=== PATIENT | male | born 1945 ===

== ENCOUNTER 2018-08-07 10:08 | Inpatient (IN) | payer MEDICARE ==
[2018-08-07] MEDS ORDERED: Sodium Chloride 0.9% 1,000 ML IV STA (11:00)
--- NOTE | 2018-08-07 11:17 | ED PDOC ---
HPI: Trauma/Fall - HPI History Per: Patient Injury Occurred (Timing): Days Ago: (3) Description Of Injury (Context): Head Trauma Location Of Injury: Left: Chest, Posterior: Head Pain Scale Rating Of: 3 Additional Complaint(s): Pt is a 72 y/o male brought to ED by EMT called by neighbors home health aid as pt was on the floor for 2 days after a fall. Pt states he fell on Friday after slipping and struck his the back of his head when he tried to get up again. He denies LOC. States he was unable to get up because he did not have enough strength to pull himself up. He remained on the floor for 2 days during this time he did not eat and ended up urinating on himself as he could not go to the bathroom. He normally walks with a cane and was not using one at the time of his fall. Reports a similar fall at the [facility] 1 week prior. At the moment, complains of left rib pain and mild headache. Denies dizziness, blurry vision, chest pain, shortness of breath, recent illness (cough/congestion, fevers, diarrhea, n/v, dysuria), neck, back, abdominal, hip or knee pain, or hx of seizures in the past. PMD: Dr. Rivas PMHX: HTN, DM (non inuslin dependent), Depression, HTN, Unable to r/o dementia PSurg: Denies Meds: reveiwed NKDA Social: Lives alone, as family in area, has home health aide, denies smoking, heavy alcohol use, or drug use <Pro Romo - Last Filed: 08/07/18 13:32> <Lacho Page - Last Filed: 08/07/18 13:51> - HPI Time Seen by Provider: 08/07/18 10:25 Chief Complaint (Nursing): Trauma Supervising Attending Note - Supervising Attending Note The Documented history was done by the: Physician Cable Installation Manager The documented physical exam was done by the: Physician Cable Installation Manager The documented procedures were done by the: Physician Cable Installation Manager - Attestation: I have personally seen and examined this patient.: Yes I have fully participated in the care of the patient.: Yes I have reviewed all pertinent clinical information, including history, physical exam and plan: Yes - Notes: Notes:: Head injury from fall <Lacho Page M - Last Filed: 08/07/18 13:51> Past Medical History Reviewed: Historical Data, Nursing Documentation, Vital Signs Vital Signs: Last Vital Signs Temp 98 F 08/07/18 10:27 Pulse 90 08/07/18 10:27 Resp 19 08/07/18 10:27 BP 143/89 08/07/18 10:27 Pulse Ox 98 08/07/18 10:27 - Medical History PMH: Cardia Arrhythmia, Depression, HTN, Hypercholesterolemia - Surgical History Surgical History: No Surg Hx - Family History Family History: States: No Known Family Hx - Living Arrangements Living Arrangements: With Family - Social History Current smoker - smoking cessation education provided: No <Pro Romo - Last Filed: 08/07/18 13:32> Vital Signs: Last Vital Signs Temp 98 F 08/07/18 10:27 Pulse 69 08/07/18 13:05 Resp 08/07/18 13:05 BP 134/80 08/07/18 13:05 Pulse Ox 98 08/07/18 13:34 <Lacho Page - Last Filed: 08/07/18 13:51> - Home Medications Home Medications: Ambulatory Orders Medication Instructions Recorded Aspirin [Ecotrin] 81 mg PO DAILY 08/07/18 Atorvastatin [Lipitor] 20 mg PO DAILY 08/07/18 Cyanocobalamin [Vitamin B12] 250 mcg PO DAILY 08/07/18 Dapagliflozin/Metformin HCl 1 tab PO BID 08/07/18 [Xigduo Xr 5 mg-1,000 mg Tablet] Ramipril [Altace] 2.5 mg PO DAILY 08/07/18 Risperidone [Risperdal] 1 mg PO BID 08/07/18 Sertraline HCl 100 mg PO DAILY 08/07/18 - Allergies Allergies/Adverse Reactions: Allergies Allergy/AdvReac Type Severity Reaction Status Date / Time No Known Allergies Allergy Verified 08/07/18 10:27 Review of Systems Constitutional: Negative for: Fever, Chills Respiratory: Negative for: Cough, Shortness of Breath Gastrointestinal: Negative for: Nausea, Vomiting, Abdominal Pain, Diarrhea Genitourinary Male: Negative for: Dysuria Musculoskeletal: Negative for: Neck Pain, Shoulder Pain, Arm Pain, Back Pain, Hand Pain <Pro Romo - Last Filed: 08/07/18 13:32> Physical Exam - Physical Exam Appears: Positive for: No Acute Distress (Calm appearing elderly gentlemen, discheveled, smells of urine) Head Exam: Negative for: ATRAUMATIC (Erythematous region over posterior scalp, no visible swelling, no palpable tenderness) Skin: Positive for: Dry Eye Exam: Positive for: Normal appearance, EOMI, PERRL ENT: Positive for: Normal ENT Inspection Neck: Positive for: Normal, Painless ROM Cardiovascular/Chest: Positive for: Regular Rate, Rhythm. Negative for: Chest Non Tender (Tenderness to palpation left inferior ribs w/ yellow bruising), JVD, Murmur Respiratory: Positive for: Normal Breath Sounds. Negative for: Accessory Muscle Use, Crackles, Rales, Rhonchi, Wheezing Gastrointestinal/Abdominal: Positive for: Normal Exam, Bowel Sounds, Soft. Negative for: Tenderness Back: Positive for: Normal Inspection. Negative for: Vertebral Tenderness Extremity: Positive for: Normal ROM, Other. Negative for: Pedal Edema Neurologic/Psych: Positive for: Alert, Oriented, Mood/Affect (full range), Other (Power 5/5 of upper and lower extremities. Full ROM of Neck, thoracic and lumbar spine, shoulder, elbow, hip and knee joints w/o any difficulty. Gait normal ). Negative for: semiconductor technician II-XII, Motor/Sensory Deficits, Aphasia, Facial Droop <Pro Romo - Last Filed: 08/07/18 13:32> - Physical Exam Neck: Positive for: Normal, Painless ROM Neurologic/Psych: Positive for: Alert, semiconductor technician II-XII, Oriented. Negative for: Motor/Sensory Deficits, Aphasia <Lacho Page - Last Filed: 08/07/18 13:51> - Laboratory Results Result Diagrams: 08/07/18 11:15 08/07/18 11:15 - ECG O2 Sat by Pulse Oximetry: 98 <Pro Romo - Last Filed: 08/07/18 13:32> - Laboratory Results Result Diagrams: 08/07/18 11:15 08/07/18 11:15 Lab Results: pO2 62 mm/Hg (30-55) H 08/07/18 12:55 VBG pH 7.40 (7.32-7.43) 08/07/18 12:55 VBG pCO2 42 mmHg (40-60) 08/07/18 12:55 VBG HCO3 25.5 mmol/L 08/07/18 12:55 VBG Total CO2 27.3 mmol/L (22-28) 08/07/18 12:55 VBG O2 Sat (Calc) 92.9 % (40-65) H 08/07/18 12:55 VBG Base Excess 1.0 mmol/L (0.0-2.0) 08/07/18 12:55 VBG Potassium 4.2 mmol/L (3.6-5.2) 08/07/18 12:55 Sodium 141.0 mmol/L (132-148) 08/07/18 12:55 Chloride 110.0 mmol/L (98-107) H 08/07/18 12:55 Glucose 150 mg/dL (75-110) H 08/07/18 12:55 Lactate 1.3 mmol/L (0.7-2.1) 08/07/18 12:55 FiO2 21.0 % 08/07/18 12:55 PT 12.9 Seconds (9.8-13.1) 08/07/18 11:15 INR 1.1 08/07/18 11:15 APTT 34.3 Seconds (25.6-37.1) 08/07/18 11:15 Troponin I < 0.0120 ng/mL (0.00-0.120) 08/07/18 11:15 Total Bilirubin 0.9 mg/dl (0.2-1.3) 08/07/18 11:15 AST 52 U/L (17-59) 08/07/18 11:15 ALT 48 U/L (21-72) 08/07/18 11:15 Alkaline Phosphatase 89 U/L (38-126) 08/07/18 11:15 Total Protein 8.1 G/DL (6.3-8.2) 08/07/18 11:15 Albumin 4.8 g/dL (3.5-5.0) 08/07/18 11:15 Globulin 3.3 gm/dL (2.2-3.9) 08/07/18 11:15 Albumin/Globulin Ratio 1.4 (1.0-2.1) 08/07/18 11:15 - ECG Pulse Ox Interpretation: Normal - Radiology X-Ray: Read By Radiologist X-Ray Interpretation: No Acute Disease - CT Scan/US ct Other Rad Studies (CT/US): Read By Radiologist Other Rad Interpretation: no acute - Progress ED Course And Treament: 1343: Stable. AAOx3. Spoke with neurosurgery. Will admit. Will need surgery, but not likely today. Will see pt. later today. Spoke with Dr. Rivas . Will admit. Spoke with ICU, will admit. - Critical Care Total Time (In Min): 30 Documented Critical Care: Time excludes all time spent performint seperately billable procedures <Lacho Page - Last Filed: 08/07/18 13:51> Medical Decision Making Medical Decision Makin72 y/o gentleman brought to ED s/p Mechanical fall w/ head trauma 3 days ago in which he could not get up from floor. Currently with headache and rib pain. Hemodynamically stable. Accucheck 248. CBC CMP CPK UA Head CT Rib Series Left PA NS 1 L bolus VBG EKG Troponin 1323hr Head CT report- subdural hemorrhage w/ 4mm midline shift. Call made to Neurosugery, Dr. Martinez Pt's son at bedside, discussed findings HOB elevated, NPO Neurocheck: Pt denies any headache, is AOx3 and still has no neurological deficits 1333hr Dr. Page discussed case with Dr. Martinez, will come to ED to evaluate, possible OR today or tomorrow. Pt to be admitted to ICU. Plan discussed with Son at bedside <Pro Romo - Last Filed: 08/07/18 13:32> Disposition <Pro Romo - Last Filed: 08/07/18 13:32> - Patient ED Disposition Is Patient to be Admitted: Yes Counseled Patient/Family Regarding: Studies Performed, Diagnosis - Disposition Disposition Time: 10:45 - Pt Status Changed To: Hospital Disposition Of: Inpatient - Admit Certification Admit to Inpatient:: After my assessment, the patient will require hospitalization for at least two midnights. This is because of the severity of symptoms shown, intensity of services needed, and/or the medical risk in this patient being treated as an outpatient. - POA Present On Arrival: Falls Or Trauma <Lacho Page - Last Filed: 08/07/18 13:51> - Clinical Impression Clinical Impression: Subdural hematoma - Disposition Condition: FAIR
[2018-08-07 11:38] LABS: BASO % 0.6 % (0.0-2.0); EOS % 0.2 % (0.0-4.0); HEMOGLOBIN 15.9 g/dL (12.0-18.0); LYMPH # 0.6 K/uL (1.0-4.3); LYMPH % 7.9 % (20.0-40.0); MEAN CELL VOLUME 94.7 fl (80.0-94.0); MEAN CORPUSCULAR HEMOGLOBIN 31.8 pg (27.0-31.0); MEAN CORPUSCULAR HGB CONC 33.6 g/dL (33.0-37.0); MEAN PLATELET VOLUME 9.1 fl (7.2-11.7); MONO # 0.4 K/uL (0.0-0.8); MONO % 5.1 % (0.0-10.0); NEUT # 6.6 K/uL (1.8-7.0); NEUT % 86.2 % (50.0-75.0); PLATELET COUNT 219 K/uL (130-400); RED CELL DISTRIBUTION WIDTH 14.4 % (11.5-14.5); WHITE BLOOD COUNT 7.6 K/uL (4.8-10.8)
[2018-08-07 11:46] VITALS: BMI 24.9
[2018-08-07 11:46] LABS: ALB/GLOB RATIO 1.4 (1.0-2.1); ALBUMIN 4.8 g/dL (3.5-5.0); ALT/SGPT 48 U/L (21-72); AST/SGOT 52 U/L (17-59); BLOOD UREA NITROGEN 38 mg/dl (9-20); CALCIUM 9.9 mg/dL (8.4-10.2); GFR NON-AFRICAN AMERICAN > 60
[2018-08-07 12:17] LABS: INR 1.1; PROTHROMBIN TIME 12.9 Seconds (9.8-13.1)
[2018-08-07 12:19] LABS: PARTIAL THROMBOPLASTIN TIME 34.3 Seconds (25.6-37.1)
[2018-08-07 12:28] LABS: ANISOCYTOSIS SLIGHT; BANDS 4 % (0-2); GIANT PLATELETS PRESENT; LARGE PLATELETS PRESENT; LYMPHOCYTE 9 % (20-50); MONOCYTE 1 % (0-10); NEUTROPHIL 86 % (42-75); PLATELET ESTIMATE NORMAL (NORMAL); POIKILOCYTOSIS SLIGHT; TOTAL CELLS COUNTED 100
--- NOTE | 2018-08-07 12:37 | CT ---
Date of service: 08/07/2018 PROCEDURE: CT HEAD WITHOUT CONTRAST. HISTORY: headache COMPARISON: None available. TECHNIQUE: Axial computed tomography images were obtained through the head/brain without intravenous contrast. Radiation dose: Total exam DLP = 950.52 mGy-cm. This CT exam was performed using one or more of the following dose reduction techniques: Automated exposure control, adjustment of the mA and/or kV according to patient size, and/or use of iterative reconstruction technique. FINDINGS: HEMORRHAGE: . the subdural extends approximately 10.5 cm along the right frontal convexity. It measures approximately 3.1 cm in greatest width. This subdural hemorrhages mildly loculated. There is no other intracranial hemorrhage identified. BRAIN: No intracranial mass. No significant atrophy. Mild periventricular white matter lucency consistent with chronic microvascular ischemic change. No evidence of acute infarct. VENTRICLES: No hydrocephalus. There is midline shift towards the left of approximately 4 mm. There is no downward herniation. The perimesencephalic cistern is preserved. CALVARIUM: Unremarkable. PARANASAL SINUSES: No evidence of sinusitis. There is a deviated nasal septum towards the right side in association with a bony spur. MASTOID AIR CELLS: Unremarkable as visualized. No inflammatory changes. OTHER FINDINGS: None. IMPRESSION: Acute on chronic right frontal convexity subdural hemorrhage, 3.1 cm width and 10.5 cm length. 4 mm midline shift towards the left as a result of mass effect from the subdural collection. Mildly loculated.. No other significant abnormality.
--- NOTE | 2018-08-07 12:46 | RAD ---
Date of service: 08/07/2018 PROCEDURE: Radiographs of the Chest and Left Ribs. HISTORY: fall COMPARISON: None available. TECHNIQUE: Frontal radiograph of the chest and multiple oblique radiographs of the left ribs were obtained. FINDINGS: LEFT RIBS: No fracture or focal lesion visualized. LUNGS: Clear. PLEURA: No pneumothorax or pleural fluid. CARDIOVASCULAR: Normal cardiac size. No pulmonary vascular congestion. No aortic atherosclerotic calcification present OTHER FINDINGS: None. IMPRESSION: Unremarkable radiographs of the chest and left ribs. No left rib fracture.
[2018-08-07 13:01] LABS: VENOUS BLOOD GAS PCO2 42 mmHg (40-60); VENOUS BLOOD GAS PO2 62 mm/Hg (30-55)
--- NOTE | 2018-08-07 14:55 | CP.PCM.PN ---
Subjective - Date & Time of Evaluation Date of Evaluation: 08/07/18 Time of Evaluation: 14:52 - Subjective Subjective: Pt fell yesterday has gait difficulty he is awake alert confused ALDAIR EOM full good st no sensory defictis no drift CT large chronic SDH Right side Would benefit from elective craniotomy and evacuation Son left so I will need to speak to him to obtain consent will leave consent fo son to sign after I speak to him If there is achnge neurologically will evacuate sooner Objective - Vital Signs/Intake and Output Vital Signs (last 24 hours): Temp Pulse Resp BP Pulse Ox 98 F 69 19 134/80 98 08/07/18 10:27 08/07/18 13:05 08/07/18 13:05 08/07/18 13:05 08/07/18 13:34 - Labs Labs: 08/07/18 11:15 08/07/18 11:15 PT 12.9 Seconds (9.8-13.1) 08/07/18 11:15 INR 1.1 08/07/18 11:15 APTT 34.3 Seconds (25.6-37.1) 08/07/18 11:15
[2018-08-07] MEDS: Sodium Chloride 0.9% 1,000 ML IV SCH (17:56)
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
--- NOTE | 2018-08-07 21:52 | CARD ---
APPROVED REPORT Date of service: 08/07/2018 EKG Measurement Heart [id number] <Conclusion> Normal sinus rhythm Possible inferior infarct, age undetermined Abnormal Electrocardiogram
[2018-08-07] MEDS: Insulin Regular 100 units/ml SC SCH (23:00)
[2018-08-08] MEDS: Sodium Chloride 0.9% 1,000 ML IV SCH ×2 (03:39→15:31)
[2018-08-08 06:36] LABS: BASO % 0.5 % (0.0-2.0); EOS # 0.2 K/uL (0.0-0.7); HEMOGLOBIN 13.5 g/dL (12.0-18.0); LYMPH # 1.6 K/uL (1.0-4.3); LYMPH % 27.1 % (20.0-40.0); MEAN CELL VOLUME 94.8 fl (80.0-94.0); MEAN CORPUSCULAR HEMOGLOBIN 31.9 pg (27.0-31.0); MEAN CORPUSCULAR HGB CONC 33.6 g/dL (33.0-37.0); MEAN PLATELET VOLUME 9.4 fl (7.2-11.7); MONO # 0.4 K/uL (0.0-0.8); MONO % 6.9 % (0.0-10.0); NEUT # 3.7 K/uL (1.8-7.0); NEUT % 61.5 % (50.0-75.0); NRBC % 0.1 % (0.0-0.0); RBC 4.23 Mil/uL (4.40-5.90); RED CELL DISTRIBUTION WIDTH 14.2 % (11.5-14.5)
[2018-08-08 06:46] LABS: ALB/GLOB RATIO 1.3 (1.0-2.1); ALBUMIN 3.6 g/dL (3.5-5.0); ALT/SGPT 40 U/L (21-72); AST/SGOT 44 U/L (17-59); BLOOD UREA NITROGEN 27 mg/dl (9-20); CALCIUM 8.7 mg/dL (8.4-10.2); GFR NON-AFRICAN AMERICAN > 60
[2018-08-08] MEDS: Insulin Regular 100 units/ml SC SCH ×4 (07:51→22:22)
--- NOTE | 2018-08-08 09:40 | CP.CCUPN ---
CCU Subjective - Physician Review Events Since Last Encounter (Free Text): Patient awake, no distress, no fever, no vomiting, events reviewed CCU Objective - Vital Signs / Intake & Output Vital Signs (Last 4 hours): Vital Signs Temp Pulse Resp BP Pulse Ox 08/08/18 08:37 126/66 08/08/18 08:00 98.3 F 66 14 126/66 97 08/08/18 06:00 68 14 125/69 97 Intake and Output (Last 8hrs): Intake & Output 08/07/18 08/08/18 08/08/18 22:59 06:59 14:59 Intake Total 350 Balance 350 Weight 158 lb 9.6 oz Intake: IV 100 Oral 250 - Physical Exam Head: Positive for: Normocephalic Pupils: Positive for: PERRL Conjunctiva: Positive for: Normal Ears: Positive for: Normal Mouth: Positive for: Dry Pharnyx: Positive for: Normal Nose (External): Positive for: Atraumatic Neck: Positive for: Normal Range of Motion Respiratory/Chest: Positive for: Clear to Auscultation Cardiovascular: Positive for: Regular Rate and Rhythm Abdomen: Positive for: Normal Bowel Sounds Upper Extremity: Positive for: Normal Inspection Lower Extremity: Positive for: Normal Inspection Psychiatric: Positive for: Alert - Medications Active Medications: Active Medications Generic Name Dose Route Start Last Admin Trade Name Freq PRN Reason Stop Dose Admin Acetaminophen 650 mg 08/07/18 17:20 Tylenol 325mg Tab PO Q6 PRN Headache Acetaminophen 650 mg 08/08/18 06:22 Tylenol 325mg Tab PO Q4 PRN Other Atorvastatin Calcium 20 mg 08/08/18 09:00 08/08/18 08:37 Lipitor PO 20 mg DAILY ROSI Administration Sodium Chloride 1,000 mls @ 125 mls/hr 08/07/18 17:30 08/08/18 03:39 Sodium Chloride 0.9% IV 08/08/18 17:22 125 mls/hr .Q8H ROSI Administration Insulin Human Regular 0 units 08/07/18 23:00 08/08/18 07:51 Humulin R SC Not Given ACCU-CHECK ROSI Protocol Ramipril 2.5 mg 08/08/18 09:00 08/08/18 08:37 Altace PO 2.5 mg DAILY ROSI Administration Tramadol HCl 50 mg 08/08/18 06:23 08/08/18 06:32 Ultram PO 50 mg Q4 PRN Administration Pain, severe (8-10) - Patient Studies Lab Studies: Lab Studies 08/08/18 08/08/18 08/07/18 Range/Units 05:30 05:30 22:38 WBC 6.0 (4.8-10.8) K/uL RBC 4.23 L (4.40-5.90) Mil/uL Hgb 13.5 D (12.0-18.0) g/dL Hct 40.1 (35.0-51.0) % MCV 94.8 H (80.0-94.0) fl MCH 31.9 H (27.0-31.0) pg MCHC 33.6 (33.0-37.0) g/dL RDW 14.2 (11.5-14.5) % Plt Count 195 (130-400) K/uL MPV 9.4 (7.2-11.7) fl Neut % (Auto) 61.5 (50.0-75.0) % Lymph % (Auto) 27.1 (20.0-40.0) % Dent % (Auto) 6.9 (0.0-10.0) % Eos % (Auto) 4.0 (0.0-4.0) % Baso % (Auto) 0.5 (0.0-2.0) % Neut # (Auto) 3.7 (1.8-7.0) K/uL Lymph # (Auto) 1.6 (1.0-4.3) K/uL Dent # (Auto) 0.4 (0.0-0.8) K/uL Eos # (Auto) 0.2 (0.0-0.7) K/uL Baso # (Auto) 0.0 (0.0-0.2) K/uL Neutrophils % (Manual) (42-75) % Band Neutrophils % (0-2) % Lymphocytes % (Manual) (20-50) % Monocytes % (Manual) (0-10) % Platelet Estimate (NORMAL) Large Platelets Giant Platelets Poikilocytosis (manual Anisocytosis (manual) [place] Cells Acanthocytes (Spur) PT (9.8-13.1) Seconds INR APTT (25.6-37.1) Seconds pO2 (30-55) mm/Hg VBG pH (7.32-7.43) VBG pCO2 (40-60) mmHg VBG HCO3 mmol/L VBG Total CO2 (22-28) mmol/L VBG O2 Sat (Calc) (40-65) % VBG Base Excess (0.0-2.0) mmol/L VBG Potassium (3.6-5.2) mmol/L Glucose (75-110) mg/dL Lactate (0.7-2.1) mmol/L FiO2 % Sodium 140 (132-148) mmol/l Potassium 3.8 (3.6-5.0) MMOL/L Chloride 103 (98-107) mmol/L Carbon Dioxide 26 (22-30) mmol/L Anion Gap 15 (10-20) BUN 27 H (9-20) mg/dl Creatinine 0.8 (0.8-1.5) mg/dl Est GFR ( Amer) > 60 Est GFR (Non-Af Amer) > 60 POC Glucose (mg/dL) 146 H (65-110) mg/dL Random Glucose 142 H (75-110) mg/dL Calcium 8.7 (8.4-10.2) mg/dL Phosphorus 3.1 (2.5-4.5) mg/dl Magnesium 2.0 (1.6-2.3) MG/DL Total Bilirubin 0.8 (0.2-1.3) mg/dl AST 44 (17-59) U/L ALT 40 (21-72) U/L Alkaline Phosphatase 72 (38-126) U/L Total Creatine Kinase 245 H (55-170) U/L Troponin I (0.00-0.120) ng/mL Total Protein 6.4 (6.3-8.2) G/DL Albumin 3.6 (3.5-5.0) g/dL Globulin 2.9 (2.2-3.9) gm/dL Albumin/Globulin Ratio 1.3 (1.0-2.1) Venous Blood Potassium (3.6-5.2) mmol/L 08/07/18 08/07/18 08/07/18 Range/Units 17:43 13:03 12:55 WBC (4.8-10.8) K/uL RBC (4.40-5.90) Mil/uL Hgb (12.0-18.0) g/dL Hct (35.0-51.0) % MCV (80.0-94.0) fl MCH (27.0-31.0) pg MCHC (33.0-37.0) g/dL RDW (11.5-14.5) % Plt Count (130-400) K/uL MPV (7.2-11.7) fl Neut % (Auto) (50.0-75.0) % Lymph % (Auto) (20.0-40.0) % Dent % (Auto) (0.0-10.0) % Eos % (Auto) (0.0-4.0) % Baso % (Auto) (0.0-2.0) % Neut # (Auto) (1.8-7.0) K/uL Lymph # (Auto) (1.0-4.3) K/uL Dent # (Auto) (0.0-0.8) K/uL Eos # (Auto) (0.0-0.7) K/uL Baso # (Auto) (0.0-0.2) K/uL Neutrophils % (Manual) (42-75) % Band Neutrophils % (0-2) % Lymphocytes % (Manual) (20-50) % Monocytes % (Manual) (0-10) % Platelet Estimate (NORMAL) Large Platelets Giant Platelets Poikilocytosis (manual Anisocytosis (manual) [place] Cells Acanthocytes (Spur) PT (9.8-13.1) Seconds INR APTT (25.6-37.1) Seconds pO2 62 H (30-55) mm/Hg VBG pH 7.40 (7.32-7.43) VBG pCO2 42 (40-60) mmHg VBG HCO3 25.5 mmol/L VBG Total CO2 27.3 (22-28) mmol/L VBG O2 Sat (Calc) 92.9 H (40-65) % VBG Base Excess 1.0 (0.0-2.0) mmol/L VBG Potassium 4.2 (3.6-5.2) mmol/L Glucose 150 H (75-110) mg/dL Lactate 1.3 (0.7-2.1) mmol/L FiO2 21.0 % Sodium 141.0 (132-148) mmol/l Potassium (3.6-5.0) MMOL/L Chloride 110.0 H (98-107) mmol/L Carbon Dioxide (22-30) mmol/L Anion Gap (10-20) BUN (9-20) mg/dl Creatinine (0.8-1.5) mg/dl Est GFR ( Amer) Est GFR (Non-Af Amer) POC Glucose (mg/dL) 145 H 128 H (65-110) mg/dL Random Glucose (75-110) mg/dL Calcium (8.4-10.2) mg/dL Phosphorus (2.5-4.5) mg/dl Magnesium (1.6-2.3) MG/DL Total Bilirubin (0.2-1.3) mg/dl AST (17-59) U/L ALT (21-72) U/L Alkaline Phosphatase (38-126) U/L Total Creatine Kinase (55-170) U/L Troponin I (0.00-0.120) ng/mL Total Protein (6.3-8.2) G/DL Albumin (3.5-5.0) g/dL Globulin (2.2-3.9) gm/dL Albumin/Globulin Ratio (1.0-2.1) Venous Blood Potassium 4.2 (3.6-5.2) mmol/L 08/07/18 08/07/18 08/07/18 Range/Units 11:15 11:15 11:15 WBC 7.6 (4.8-10.8) K/uL RBC 5.00 (4.40-5.90) Mil/uL Hgb 15.9 (12.0-18.0) g/dL Hct 47.3 (35.0-51.0) % MCV 94.7 H (80.0-94.0) fl MCH 31.8 H (27.0-31.0) pg MCHC 33.6 (33.0-37.0) g/dL RDW 14.4 (11.5-14.5) % Plt Count 219 (130-400) K/uL MPV 9.1 (7.2-11.7) fl Neut % (Auto) 86.2 H (50.0-75.0) % Lymph % (Auto) 7.9 L (20.0-40.0) % Dent % (Auto) 5.1 (0.0-10.0) % Eos % (Auto) 0.2 (0.0-4.0) % Baso % (Auto) 0.6 (0.0-2.0) % Neut # (Auto) 6.6 (1.8-7.0) K/uL Lymph # (Auto) 0.6 L (1.0-4.3) K/uL Dent # (Auto) 0.4 (0.0-0.8) K/uL Eos # (Auto) 0.0 (0.0-0.7) K/uL Baso # (Auto) 0.0 (0.0-0.2) K/uL Neutrophils % (Manual) 86 H (42-75) % Band Neutrophils % 4 H (0-2) % Lymphocytes % (Manual) 9 L (20-50) % Monocytes % (Manual) 1 (0-10) % Platelet Estimate Normal (NORMAL) Large Platelets Present Giant Platelets Present Poikilocytosis (manual Slight Anisocytosis (manual) Slight [place] Cells Acanthocytes (Spur) Hat Block Bench Hand PT 12.9 (9.8-13.1) Seconds INR 1.1 APTT 34.3 (25.6-37.1) Seconds pO2 (30-55) mm/Hg VBG pH (7.32-7.43) VBG pCO2 (40-60) mmHg VBG HCO3 mmol/L VBG Total CO2 (22-28) mmol/L VBG O2 Sat (Calc) (40-65) % VBG Base Excess (0.0-2.0) mmol/L VBG Potassium (3.6-5.2) mmol/L Glucose (75-110) mg/dL Lactate (0.7-2.1) mmol/L FiO2 % Sodium 142 (132-148) mmol/l Potassium 4.1 (3.6-5.0) MMOL/L Chloride 102 (98-107) mmol/L Carbon Dioxide 24 (22-30) mmol/L Anion Gap 20 (10-20) BUN 38 H (9-20) mg/dl Creatinine 0.8 (0.8-1.5) mg/dl Est GFR ( Amer) > 60 Est GFR (Non-Af Amer) > 60 POC Glucose (mg/dL) (65-110) mg/dL Random Glucose 202 H (75-110) mg/dL Calcium 9.9 (8.4-10.2) mg/dL Phosphorus (2.5-4.5) mg/dl Magnesium (1.6-2.3) MG/DL Total Bilirubin 0.9 (0.2-1.3) mg/dl AST 52 (17-59) U/L ALT 48 (21-72) U/L Alkaline Phosphatase 89 (38-126) U/L Total Creatine Kinase 572 H (55-170) U/L Troponin I < 0.0120 (0.00-0.120) ng/mL Total Protein 8.1 (6.3-8.2) G/DL Albumin 4.8 (3.5-5.0) g/dL Globulin 3.3 (2.2-3.9) gm/dL Albumin/Globulin Ratio 1.4 (1.0-2.1) Venous Blood Potassium (3.6-5.2) mmol/L 08/07/18 Range/Units 10:12 WBC (4.8-10.8) K/uL RBC (4.40-5.90) Mil/uL Hgb (12.0-18.0) g/dL Hct (35.0-51.0) % MCV (80.0-94.0) fl MCH (27.0-31.0) pg MCHC (33.0-37.0) g/dL RDW (11.5-14.5) % Plt Count (130-400) K/uL MPV (7.2-11.7) fl Neut % (Auto) (50.0-75.0) % Lymph % (Auto) (20.0-40.0) % Dent % (Auto) (0.0-10.0) % Eos % (Auto) (0.0-4.0) % Baso % (Auto) (0.0-2.0) % Neut # (Auto) (1.8-7.0) K/uL Lymph # (Auto) (1.0-4.3) K/uL Dent # (Auto) (0.0-0.8) K/uL Eos # (Auto) (0.0-0.7) K/uL Baso # (Auto) (0.0-0.2) K/uL Neutrophils % (Manual) (42-75) % Band Neutrophils % (0-2) % Lymphocytes % (Manual) (20-50) % Monocytes % (Manual) (0-10) % Platelet Estimate (NORMAL) Large Platelets Giant Platelets Poikilocytosis (manual Anisocytosis (manual) [place] Cells Acanthocytes (Spur) PT (9.8-13.1) Seconds INR APTT (25.6-37.1) Seconds pO2 (30-55) mm/Hg VBG pH (7.32-7.43) VBG pCO2 (40-60) mmHg VBG HCO3 mmol/L VBG Total CO2 (22-28) mmol/L VBG O2 Sat (Calc) (40-65) % VBG Base Excess (0.0-2.0) mmol/L VBG Potassium (3.6-5.2) mmol/L Glucose (75-110) mg/dL Lactate (0.7-2.1) mmol/L FiO2 % Sodium (132-148) mmol/l Potassium (3.6-5.0) MMOL/L Chloride (98-107) mmol/L Carbon Dioxide (22-30) mmol/L Anion Gap (10-20) BUN (9-20) mg/dl Creatinine (0.8-1.5) mg/dl Est GFR ( Amer) Est GFR (Non-Af Amer) POC Glucose (mg/dL) 248 H (65-110) mg/dL Random Glucose (75-110) mg/dL Calcium (8.4-10.2) mg/dL Phosphorus (2.5-4.5) mg/dl Magnesium (1.6-2.3) MG/DL Total Bilirubin (0.2-1.3) mg/dl AST (17-59) U/L ALT (21-72) U/L Alkaline Phosphatase (38-126) U/L Total Creatine Kinase (55-170) U/L Troponin I (0.00-0.120) ng/mL Total Protein (6.3-8.2) G/DL Albumin (3.5-5.0) g/dL Globulin (2.2-3.9) gm/dL Albumin/Globulin Ratio (1.0-2.1) Venous Blood Potassium (3.6-5.2) mmol/L Laboratory Results - last 24 hr 08/07/18 08/07/18 08/07/18 10:12 11:15 11:15 WBC 7.6 RBC 5.00 Hgb 15.9 Hct 47.3 MCV 94.7 H MCH 31.8 H MCHC 33.6 RDW 14.4 Plt Count 219 MPV 9.1 Neut % (Auto) 86.2 H Lymph % (Auto) 7.9 L Dent % (Auto) 5.1 Eos % (Auto) 0.2 Baso % (Auto) 0.6 Neut # (Auto) 6.6 Lymph # (Auto) 0.6 L Dent # (Auto) 0.4 Eos # (Auto) 0.0 Baso # (Auto) 0.0 Neutrophils % (Manual) 86 H Band Neutrophils % 4 H Lymphocytes % (Manual) 9 L Monocytes % (Manual) 1 Platelet Estimate Normal Large Platelets Present Giant Platelets Present Poikilocytosis (manual Slight Anisocytosis (manual) Slight [place] Cells Acanthocytes (Spur) Hat Block Bench Hand PT INR APTT pO2 VBG pH VBG pCO2 VBG HCO3 VBG Total CO2 VBG O2 Sat (Calc) VBG Base Excess VBG Potassium Glucose Lactate FiO2 Sodium 142 Potassium 4.1 Chloride 102 Carbon Dioxide 24 Anion Gap 20 BUN 38 H Creatinine 0.8 Est GFR ( Amer) > 60 Est GFR (Non-Af Amer) > 60 POC Glucose (mg/dL) 248 H Random Glucose 202 H Calcium 9.9 Phosphorus Magnesium Total Bilirubin 0.9 AST 52 ALT 48 Alkaline Phosphatase 89 Total Creatine Kinase 572 H Troponin I < 0.0120 Total Protein 8.1 Albumin 4.8 Globulin 3.3 Albumin/Globulin Ratio 1.4 Venous Blood Potassium 08/07/18 08/07/18 08/07/18 11:15 12:55 13:03 WBC RBC Hgb Hct MCV MCH MCHC RDW Plt Count MPV Neut % (Auto) Lymph % (Auto) Dent % (Auto) Eos % (Auto) Baso % (Auto) Neut # (Auto) Lymph # (Auto) Dent # (Auto) Eos # (Auto) Baso # (Auto) Neutrophils % (Manual) Band Neutrophils % Lymphocytes % (Manual) Monocytes % (Manual) Platelet Estimate Large Platelets Giant Platelets Poikilocytosis (manual Anisocytosis (manual) [place] Cells Acanthocytes (Spur) PT 12.9 INR 1.1 APTT 34.3 pO2 62 H VBG pH 7.40 VBG pCO2 42 VBG HCO3 25.5 VBG Total CO2 27.3 VBG O2 Sat (Calc) 92.9 H VBG Base Excess 1.0 VBG Potassium 4.2 Glucose 150 H Lactate 1.3 FiO2 21.0 Sodium 141.0 Potassium Chloride 110.0 H Carbon Dioxide Anion Gap BUN Creatinine Est GFR ( Amer) Est GFR (Non-Af Amer) POC Glucose (mg/dL) 128 H Random Glucose Calcium Phosphorus Magnesium Total Bilirubin AST ALT Alkaline Phosphatase Total Creatine Kinase Troponin I Total Protein Albumin Globulin Albumin/Globulin Ratio Venous Blood Potassium 4.2 08/07/18 08/07/18 08/08/18 17:43 22:38 05:30 WBC 6.0 RBC 4.23 L Hgb 13.5 D Hct 40.1 MCV 94.8 H MCH 31.9 H MCHC 33.6 RDW 14.2 Plt Count 195 MPV 9.4 Neut % (Auto) 61.5 Lymph % (Auto) 27.1 Dent % (Auto) 6.9 Eos % (Auto) 4.0 Baso % (Auto) 0.5 Neut # (Auto) 3.7 Lymph # (Auto) 1.6 Dent # (Auto) 0.4 Eos # (Auto) 0.2 Baso # (Auto) 0.0 Neutrophils % (Manual) Band Neutrophils % Lymphocytes % (Manual) Monocytes % (Manual) Platelet Estimate Large Platelets Giant Platelets Poikilocytosis (manual Anisocytosis (manual) Richy Cells Acanthocytes (Spur) PT INR APTT pO2 VBG pH VBG pCO2 VBG HCO3 VBG Total CO2 VBG O2 Sat (Calc) VBG Base Excess VBG Potassium Glucose Lactate FiO2 Sodium Potassium Chloride Carbon Dioxide Anion Gap BUN Creatinine Est GFR ( Amer) Est GFR (Non-Af Amer) POC Glucose (mg/dL) 145 H 146 H Random Glucose Calcium Phosphorus Magnesium Total Bilirubin AST ALT Alkaline Phosphatase Total Creatine Kinase Troponin I Total Protein Albumin Globulin Albumin/Globulin Ratio Venous Blood Potassium 08/08/18 05:30 WBC RBC Hgb Hct MCV MCH MCHC RDW Plt Count MPV Neut % (Auto) Lymph % (Auto) Dent % (Auto) Eos % (Auto) Baso % (Auto) Neut # (Auto) Lymph # (Auto) Dent # (Auto) Eos # (Auto) Baso # (Auto) Neutrophils % (Manual) Band Neutrophils % Lymphocytes % (Manual) Monocytes % (Manual) Platelet Estimate Large Platelets Giant Platelets Poikilocytosis (manual Anisocytosis (manual) [place] Cells Acanthocytes (Spur) PT INR APTT pO2 VBG pH VBG pCO2 VBG HCO3 VBG Total CO2 VBG O2 Sat (Calc) VBG Base Excess VBG Potassium Glucose Lactate FiO2 Sodium 140 Potassium 3.8 Chloride 103 Carbon Dioxide 26 Anion Gap 15 BUN 27 H Creatinine 0.8 Est GFR ( Amer) > 60 Est GFR (Non-Af Amer) > 60 POC Glucose (mg/dL) Random Glucose 142 H Calcium 8.7 Phosphorus 3.1 Magnesium 2.0 Total Bilirubin 0.8 AST 44 ALT 40 Alkaline Phosphatase 72 Total Creatine Kinase 245 H Troponin I Total Protein 6.4 Albumin 3.6 Globulin 2.9 Albumin/Globulin Ratio 1.3 Venous Blood Potassium Radiology Impressions: Radiology Impressions Head CT 08/07/18 10:58 IMPRESSION: Acute on chronic right frontal convexity subdural hemorrhage, 3.1 cm width and 10.5 cm length. 4 mm midline shift towards the left as a result of mass effect from the subdural collection. Mildly loculated.. No other significant abnormality. Ribs X-Ray 08/07/18 11:01 IMPRESSION: Unremarkable radiographs of the chest and left ribs. No left rib fracture. EKG/Cardiology Studies: Cardiology / EKG Studies 08/07/18 10:58 ELECTROCARDIOGRAM Stat Comment: Mode Of Transportation: Reason For Exam: needed 08/08/18 09:00 EKG [ELECTROCARDIOGRAM] DAILY Comment: Mode Of Transportation: Reason For Exam: f/u NS ST -T changes Fingerstick Blood Sugar Results: 142 Critical Care Progress Note - Nutrition Nutrition: Nutrition Category Date Time Status Diabetic [Consistent Carbohydrate] [DIET] Diets 08/07/18 Lunch Active Assessment/Plan - Assessment and Plan (Free Text) Assessment: A/P SDH s/p fall, DM, HTN, azotemia/dehydration, h/o dementia - Neuro check - Neurosurgery follow up - Continue meds - Pulmonary toilets
[2018-08-09 06:33] LABS: HEMOGLOBIN 13.9 g/dL (12.0-18.0); MEAN CORPUSCULAR HGB CONC 33.7 g/dL (33.0-37.0); RBC 4.34 Mil/uL (4.40-5.90); RED CELL DISTRIBUTION WIDTH 14.2 % (11.5-14.5); WHITE BLOOD COUNT 5.2 K/uL (4.8-10.8)
[2018-08-09] MEDS: Insulin Regular 100 units/ml SC SCH ×4 (06:45→23:00)
[2018-08-09 06:51] LABS: BLOOD UREA NITROGEN 17 mg/dl (9-20); CALCIUM 8.8 mg/dL (8.4-10.2); GFR NON-AFRICAN AMERICAN > 60
--- NOTE | 2018-08-09 07:51 | CP.CCUPN ---
CCU Subjective - Physician Review Events Since Last Encounter (Free Text): Patient awake, no distress, no fever, no vomiting, events reviewed CCU Objective - Vital Signs / Intake & Output Vital Signs (Last 4 hours): Vital Signs Temp Pulse Resp BP Pulse Ox 08/09/18 06:00 54 L 14 127/76 96 08/09/18 04:00 98.2 F 53 L 12 122/74 100 Intake and Output (Last 8hrs): Intake & Output 08/08/18 08/09/18 08/09/18 22:59 06:59 14:59 Intake Total 1670 150 Output Total 450 500 Balance 1220 -350 Weight 159 lb 2 oz Intake: IV 600 Oral 1070 150 Output: Urine 450 500 Urine, Voided 450 500 Other: # Bowel Movements 1 - Physical Exam Head: Positive for: Normocephalic Pupils: Positive for: PERRL Conjunctiva: Positive for: Normal Ears: Positive for: Normal Mouth: Positive for: Dry Pharnyx: Positive for: Normal Nose (External): Positive for: Atraumatic Neck: Positive for: Normal Range of Motion Respiratory/Chest: Positive for: Clear to Auscultation Cardiovascular: Positive for: Regular Rate and Rhythm Abdomen: Positive for: Normal Bowel Sounds Upper Extremity: Positive for: Normal Inspection Lower Extremity: Positive for: Normal Inspection Psychiatric: Positive for: Alert - Medications Active Medications: Active Medications Generic Name Dose Route Start Last Admin Trade Name Freq PRN Reason Stop Dose Admin Acetaminophen 650 mg 08/07/18 17:20 Tylenol 325mg Tab PO Q6 PRN Headache Acetaminophen 650 mg 08/08/18 06:22 Tylenol 325mg Tab PO Q4 PRN Other Atorvastatin Calcium 20 mg 08/08/18 09:00 08/08/18 08:37 Lipitor PO 20 mg DAILY ROSI Administration Insulin Human Regular 0 units 08/07/18 23:00 08/09/18 06:45 Humulin R SC 2 units ACCU-CHECK ROSI Administration Protocol Propranolol HCl 10 mg 08/09/18 09:00 Inderal PO TID ROSI Ramipril 2.5 mg 08/08/18 09:00 08/08/18 08:37 Altace PO 2.5 mg DAILY ROSI Administration Tramadol HCl 50 mg 08/08/18 06:23 08/08/18 12:41 Ultram PO 50 mg Q4 PRN Administration Pain, severe (8-10) - Patient Studies Lab Studies: Microbiology Studies 08/07/18 17:00 MRSA Culture (Admit) - Final Naris MRSA NOT DETECTED Lab Studies 08/09/18 08/09/18 08/09/18 Range/Units 06:41 05:30 05:30 WBC 5.2 (4.8-10.8) K/uL RBC 4.34 L (4.40-5.90) Mil/uL Hgb 13.9 (12.0-18.0) g/dL Hct 41.2 (35.0-51.0) % MCV 95.0 H (80.0-94.0) fl MCH 32.0 H (27.0-31.0) pg MCHC 33.7 (33.0-37.0) g/dL RDW 14.2 (11.5-14.5) % Plt Count 187 (130-400) K/uL Sodium 137 (132-148) mmol/l Potassium 3.8 (3.6-5.0) MMOL/L Chloride 101 (98-107) mmol/L Carbon Dioxide 27 (22-30) mmol/L Anion Gap 13 (10-20) BUN 17 (9-20) mg/dl Creatinine 0.7 L (0.8-1.5) mg/dl Est GFR ( Amer) > 60 Est GFR (Non-Af Amer) > 60 POC Glucose (mg/dL) 170 H (65-110) mg/dL Random Glucose 140 H (75-110) mg/dL Calcium 8.8 (8.4-10.2) mg/dL 08/08/18 08/08/18 08/08/18 Range/Units 21:03 16:36 09:52 WBC (4.8-10.8) K/uL RBC (4.40-5.90) Mil/uL Hgb (12.0-18.0) g/dL Hct (35.0-51.0) % MCV (80.0-94.0) fl MCH (27.0-31.0) pg MCHC (33.0-37.0) g/dL RDW (11.5-14.5) % Plt Count (130-400) K/uL Sodium (132-148) mmol/l Potassium (3.6-5.0) MMOL/L Chloride (98-107) mmol/L Carbon Dioxide (22-30) mmol/L Anion Gap (10-20) BUN (9-20) mg/dl Creatinine (0.8-1.5) mg/dl Est GFR ( Amer) Est GFR (Non-Af Amer) POC Glucose (mg/dL) 140 H 125 H 227 H (65-110) mg/dL Random Glucose (75-110) mg/dL Calcium (8.4-10.2) mg/dL Laboratory Results - last 24 hr 08/08/18 08/08/18 08/08/18 09:52 16:36 21:03 WBC RBC Hgb Hct MCV MCH MCHC RDW Plt Count Sodium Potassium Chloride Carbon Dioxide Anion Gap BUN Creatinine Est GFR ( Amer) Est GFR (Non-Af Amer) POC Glucose (mg/dL) 227 H 125 H 140 H Random Glucose Calcium 08/09/18 08/09/18 08/09/18 05:30 05:30 06:41 WBC 5.2 RBC 4.34 L Hgb 13.9 Hct 41.2 MCV 95.0 H MCH 32.0 H MCHC 33.7 RDW 14.2 Plt Count 187 Sodium 137 Potassium 3.8 Chloride 101 Carbon Dioxide 27 Anion Gap 13 BUN 17 Creatinine 0.7 L Est GFR ( Amer) > 60 Est GFR (Non-Af Amer) > 60 POC Glucose (mg/dL) 170 H Random Glucose 140 H Calcium 8.8 EKG/Cardiology Studies: Cardiology / EKG Studies 08/08/18 09:00 EKG [ELECTROCARDIOGRAM] DAILY Comment: Mode Of Transportation: Reason For Exam: f/u NS ST -T changes Fingerstick Blood Sugar Results: 170 Critical Care Progress Note - Nutrition Nutrition: Nutrition Category Date Time Status Consistent Carbohydrate [DIET] Diets 08/08/18 Dinner Active Assessment/Plan - Assessment and Plan (Free Text) Assessment: A/P SDH s/p fall, DM, HTN, azotemia/dehydration, h/o dementia - Neuro check - Neurosurgery follow up - Continue meds - Pulmonary toilets
[2018-08-09 13:18] LABS: PROTHROMBIN TIME 11.5 Seconds (9.8-13.1)
[2018-08-09 13:21] LABS: PARTIAL THROMBOPLASTIN TIME 35.9 Seconds (25.6-37.1)
--- NOTE | 2018-08-09 14:23 | CP.PCM.HP ---
History of Present Illness - History of Present Illness History of Present Illness: This is a 72 y/o male admitted for head injury. He apparently had a fall at home and hit his head a but was unable to get up and stayed on the floor for at least two days. He denies any loss of consciousness. CT scan of the head showed right frontal convexity subdural hemorrhage. He apparently had another episode of fall while in a [employer]undromat. He denies dizziness. He regularly uses a cane but was not on it in both instances. He Medica Hx HTN DM 2 on po meds essential tremors OA depression hyperlipidemia Present on Admission - Present on Admission Any Indicators Present on Admission: No History of DVT/PE: No History of Uncontrolled Diabetes: No Urinary Catheter: No Decubitus Ulcer Present: No Review of Systems - Neurological Additional comments: essetial tremors Past Patient History - Past Social History Smoking Status: Never Smoked - CARDIAC Hx Cardiac Disorders: Yes Hx Hypertension: Yes - ENDOCRINE/METABOLIC Hx Endocrine Disorders: Yes - MUSCULOSKELETAL/RHEUMATOLOGICAL Hx Falls: Yes - PSYCHIATRIC Hx Substance Use: No Meds Allergies/Adverse Reactions: Allergies Allergy/AdvReac Type Severity Reaction Status Date / Time No Known Allergies Allergy Verified 08/07/18 10:27 Physical Exam - Head Exam Head Exam: NORMAL INSPECTION - Eye Exam Eye Exam: Normal appearance - Respiratory Exam Respiratory Exam: Clear to Auscultation Bilateral - Cardiovascular Exam Cardiovascular Exam: REGULAR RHYTHM - GI/Abdominal Exam GI & Abdominal Exam: Normal Bowel Sounds - Neurological Exam Neurological exam: Alert, Oriented x3 Additional comments: essential tremors Results - Vital Signs Recent Vital Signs: Last Vital Signs Temp 98.6 F 08/09/18 12:00 Pulse 64 08/09/18 12:30 Resp 16 08/09/18 12:00 BP 121/71 08/09/18 12:30 Pulse Ox 97 08/09/18 12:00 - Labs Result Diagrams: 08/09/18 05:30 08/09/18 05:30 Labs: Laboratory Results - last 24 hr 08/08/18 08/08/18 08/09/18 16:36 21:03 05:30 WBC 5.2 RBC 4.34 L Hgb 13.9 Hct 41.2 MCV 95.0 H MCH 32.0 H MCHC 33.7 RDW 14.2 Plt Count 187 PT INR APTT Sodium Potassium Chloride Carbon Dioxide Anion Gap BUN Creatinine Est GFR ( Amer) Est GFR (Non-Af Amer) POC Glucose (mg/dL) 125 H 140 H Random Glucose Calcium 08/09/18 08/09/18 08/09/18 05:30 06:41 11:10 WBC RBC Hgb Hct MCV MCH MCHC RDW Plt Count PT INR APTT Sodium 137 Potassium 3.8 Chloride 101 Carbon Dioxide 27 Anion Gap 13 BUN 17 Creatinine 0.7 L Est GFR ( Amer) > 60 Est GFR (Non-Af Amer) > 60 POC Glucose (mg/dL) 170 H 221 H Random Glucose 140 H Calcium 8.8 08/09/18 12:50 WBC RBC Hgb Hct MCV MCH MCHC RDW Plt Count PT 11.5 INR 1.0 APTT 35.9 Sodium Potassium Chloride Carbon Dioxide Anion Gap BUN Creatinine Est GFR ( Amer) Est GFR (Non-Af Amer) POC Glucose (mg/dL) Random Glucose Calcium Assessment & Plan (1) Subdural hematoma Status: Acute (2) Hypertension Status: Acute (3) Diabetes mellitus type 2 in nonobese Status: Acute (4) Fall Status: Acute (5) Depression Status: Acute (6) Essential tremor Status: Acute (7) Osteoarthritis Status: Acute (8) Gait difficulty Status: Acute - Assessment and Plan (Free Text) Plan: Neurosurgical eval ICU neurocheck Cont all meds IVF
--- NOTE | 2018-08-09 14:36 | CP.PCM.PN ---
Subjective - Date & Time of Evaluation Date of Evaluation: 08/08/18 Time of Evaluation: 17:00 - Subjective Subjective: Patient is doing a lot better Has no headaches Noted increasing hand tremors Has no headaches No chest pain or SOB. Noted elevated FBS. Objective - Vital Signs/Intake and Output Vital Signs (last 24 hours): Temp Pulse Resp BP Pulse Ox 98.6 F 64 16 121/71 97 08/09/18 12:00 08/09/18 12:30 08/09/18 12:00 08/09/18 12:30 08/09/18 12:00 Intake and Output: 08/09/18 08/09/18 06:59 18:59 Intake Total 500 200 Output Total 500 600 Balance 0 -400 - Medications Medications: Current Medications Acetaminophen (Tylenol 325mg Tab) 650 mg PO Q6 PRN PRN Reason: Headache Acetaminophen (Tylenol 325mg Tab) 650 mg PO Q4 PRN PRN Reason: Other Atorvastatin Calcium (Lipitor) 20 mg PO DAILY [facility] Last Admin: 08/09/18 09:16 Dose: 20 mg Insulin Human Regular (Humulin R) 0 units SC ACCU-CHECK ROSI; Protocol Last Admin: 08/09/18 12:29 Dose: 3 units Propranolol HCl (Inderal) 10 mg PO TID [facility] Last Admin: 08/09/18 12:30 Dose: 10 mg Ramipril (Altace) 2.5 mg PO DAILY [facility] Last Admin: 08/09/18 09:14 Dose: 2.5 mg Tramadol HCl (Ultram) 50 mg PO Q4 PRN PRN Reason: Pain, severe (8-10) Last Admin: 08/09/18 09:18 Dose: 50 mg - Labs Labs: 08/09/18 05:30 08/09/18 05:30 PT 11.5 Seconds (9.8-13.1) 08/09/18 12:50 INR 1.0 08/09/18 12:50 APTT 35.9 Seconds (25.6-37.1) 08/09/18 12:50 - Head Exam Head Exam: NORMAL INSPECTION - Eye Exam Eye Exam: Normal appearance - ENT Exam ENT Exam: Mucous Membranes Moist - Respiratory Exam Respiratory Exam: Clear to Ausculation Bilateral - Cardiovascular Exam Cardiovascular Exam: REGULAR RHYTHM - GI/Abdominal Exam GI & Abdominal Exam: Normal Bowel Sounds Assessment and Plan (1) Subdural hematoma Status: Acute (2) Hypertension Status: Acute (3) Diabetes mellitus type 2 in nonobese Status: Acute (4) Fall Status: Acute (5) Depression Status: Acute (6) Essential tremor Status: Acute (7) Osteoarthritis Status: Acute (8) Gait difficulty Status: Acute - Assessment and Plan (Free Text) Plan: Cont meds Cont tx Cont neurocheck follow up with neurosurgery cardiology eval
--- NOTE | 2018-08-09 14:38 | CP.PCM.PN ---
Subjective - Date & Time of Evaluation Date of Evaluation: 08/09/18 Time of Evaluation: 14:37 - Subjective Subjective: Patient claims that he feels better today Started on Propranolol yesterday Has no headaches Tremors have improved. Objective - Vital Signs/Intake and Output Vital Signs (last 24 hours): Temp Pulse Resp BP Pulse Ox 98.6 F 64 16 121/71 97 08/09/18 12:00 08/09/18 12:30 08/09/18 12:00 08/09/18 12:30 08/09/18 12:00 Intake and Output: 08/09/18 08/09/18 06:59 18:59 Intake Total 500 200 Output Total 500 600 Balance 0 -400 - Medications Medications: Current Medications Acetaminophen (Tylenol 325mg Tab) 650 mg PO Q6 PRN PRN Reason: Headache Acetaminophen (Tylenol 325mg Tab) 650 mg PO Q4 PRN PRN Reason: Other Atorvastatin Calcium (Lipitor) 20 mg PO DAILY [facility] Last Admin: 08/09/18 09:16 Dose: 20 mg Insulin Human Regular (Humulin R) 0 units SC ACCU-CHECK [facility]; Protocol Last Admin: 08/09/18 12:29 Dose: 3 units Propranolol HCl (Inderal) 10 mg PO TID [facility] Last Admin: 08/09/18 12:30 Dose: 10 mg Ramipril (Altace) 2.5 mg PO DAILY [facility] Last Admin: 08/09/18 09:14 Dose: 2.5 mg Tramadol HCl (Ultram) 50 mg PO Q4 PRN PRN Reason: Pain, severe (8-10) Last Admin: 08/09/18 09:18 Dose: 50 mg - Labs Labs: 08/09/18 05:30 08/09/18 05:30 PT 11.5 Seconds (9.8-13.1) 08/09/18 12:50 INR 1.0 08/09/18 12:50 APTT 35.9 Seconds (25.6-37.1) 08/09/18 12:50 - Head Exam Head Exam: NORMAL INSPECTION - Eye Exam Eye Exam: Normal appearance - Respiratory Exam Respiratory Exam: Clear to Ausculation Bilateral - Cardiovascular Exam Cardiovascular Exam: REGULAR RHYTHM - GI/Abdominal Exam GI & Abdominal Exam: Normal Bowel Sounds Assessment and Plan (1) Subdural hematoma Status: Acute (2) Hypertension Status: Acute (3) Diabetes mellitus type 2 in nonobese Status: Acute (4) Fall Status: Acute (5) Depression Status: Acute (6) Essential tremor Status: Acute (7) Osteoarthritis Status: Acute (8) Gait difficulty Status: Acute - Assessment and Plan (Free Text) Plan: Cont meds Con ttx Cont PT cardiology eval
[2018-08-10 07:00] LABS: MEAN CELL VOLUME 94.2 fl (80.0-94.0); MEAN CORPUSCULAR HEMOGLOBIN 31.4 pg (27.0-31.0); MEAN CORPUSCULAR HGB CONC 33.3 g/dL (33.0-37.0); RBC 4.45 Mil/uL (4.40-5.90); RED CELL DISTRIBUTION WIDTH 14.2 % (11.5-14.5); WHITE BLOOD COUNT 4.8 K/uL (4.8-10.8)
[2018-08-10 07:02] LABS: PROTHROMBIN TIME 11.6 Seconds (9.8-13.1)
[2018-08-10 07:04] LABS: PARTIAL THROMBOPLASTIN TIME 38.9 Seconds (25.6-37.1)
[2018-08-10 07:18] LABS: BLOOD UREA NITROGEN 16 mg/dl (9-20); CALCIUM 9.1 mg/dL (8.4-10.2); GFR NON-AFRICAN AMERICAN > 60
--- NOTE | 2018-08-10 07:29 | CP.PCM.CON ---
History of Present Illness - History of Present Illness History of Present Illness: I was asked to see patient by Dr Rivas, Patient seen at 7:02 Patient is a 72 year old male with HTN, DM who presents with a fall. The patient generally walks wit a cane, but by report did not have his cane. He was found to have a subdural hematoma. He requires craniotomy. He denies chest pain or dyspnea Review of Systems - Constitutional Constitutional: absent: As Per HPI, Anorexia, Chills, Daytime Sleepiness, Excessive Sweating, Fatigue, Fever, Frequent Falls, Headache, Increased Appetite, Lethargy, Malaise, Night Sweats, Snoring, Sleep Apnea, Weight Gain, Weight Loss, Weakness, Other - EENT Eyes: absent: As Per HPI, Blind Spots, Blurred Vision, Change in Vision, Decreased Night Vision, Diplopia, Discharge, Dry Eye, Exophthalmos, Floaters, Irritation, Itchy Eyes, Loss of Peripheral Vision, Pain, Photophobia, Requires Corrective Lenses, Sees Flashes, Spots in Vision, Tunnel Vision, Other Visual Disturbances, Loss of Vision, Other Ears: absent: As Per HPI, Decreased Hearing, Ear Discharge, Ear Pain, Tinnitus, Abnormal Hearing, Disequilibrium, Dizziness, Other Nose/Mouth/Throat: absent: As Per HPI, Epistaxis, Nasal Congestion, Nasal Discharge, Nasal Obstruction, Nasal Trauma, Nose Pain, Post Nasal Drip, Sinus Pain, Sinus Pressure, Bleeding Gums, Change in Voice, Dental Pain, Dry Mouth, Dysphagia, Halitosis, Hoarsness, Lip Swelling, Mouth Lesions, Mouth Pain, Odynophagia, Sore Throat, Throat Swelling, Tongue Swelling, Facial Pain, Neck Pain, Neck Mass, Other - Cardiovascular Cardiovascular: absent: As Per HPI, Acrocyanosis, Chest Pain, Chest Pain at Rest, Chest Pain with Activity, Claudication, Diaphoresis, Dyspnea, Dyspnea on Exertion, Edema, Irregular Heart Rhythm, Pain Radiating to Arm/Neck/Jaw, Leg Edema, Leg Ulcers, Lightheadedness, Orthopnea, Palpitations, Paroxysmal Nocturnal Dyspnea, Pedal Edema, Radiating Pain, Rapid Heart Rate, Slow Heart Rate, Syncope, Other - Respiratory Respiratory: absent: As Per HPI, Cough, Dyspnea, Hemoptysis, Dyspnea on Exertion, Wheezing, Snoring, Stridor, Pain on Inspiration, Chest Congestion, Excessive Mucous Production, Change in Mucous Color, Pain with Coughing, Other - Gastrointestinal Gastrointestinal: absent: As Per HPI, Abdominal Pain, Belching, Bloating, Change in Bowel Habits, Change in Stool Character, Coffee Ground Emesis, Constipation, Cramping, Diarrhea, Dyspepsia, Dysphagia, Early Satiety, Excessive Flatus, Fecal Incontinence, Heartburn, Hematemesis, Hematochezia, Loose Stools, Melena, Nausea, Odynophagia, Temesmus, Vomiting, Other - Genitourinary Genitourinary: absent: As Per HPI, Change in Urinary Stream, Difficulty Urinati ng, Dysuria, Flank Pain, Hematuria, Pyuria, Nocturia, Urinary Incontinence, Urinary Frequency, Urinary Hesitance, Urinary Urgency, Voiding Freq/Small Amts, Freq UTI, Hx Renal/Bladder Calculi, Hx /Renal Surgery, Bladder Distension, Other - Musculoskeletal Musculoskeletal: absent: As Per HPI, Abnormal Gait, Arthralgias, Atrophy, Back Pain, Deformity, Joint Swelling, Limited Range of Motion, Loss of Height, Muscle Cramps, Muscle Weakness, Myalgias, Neck Pain, Numbness, Radiating Pain into Limb, Stiffness, Tingling, Other - Integumentary Integumentary: absent: As Per HPI, Acne, Alopecia, Bleeding Lesions, Change in H air, Change in Nails, Change in Pigmentation, Changing Lesions, Dry Skin, Erythema, Furuncle, Hirsutism, Lesions, New Lesions, Non-Healing Lesions, Photosensitivity, Pruritus, Rash, Skin Pain, Skin Ulcer, Sores, Striae, Swelling, Unusual Bruising, Wounds, Jaundice, Other - Neurological Neurological: absent: As Per HPI, Abnormal Gait, Abnormal Hearing, Abnormal Movements, Abnormal Speech, Behavioral Changes, Burning Sensations, Confusion, Convulsions, Disequilibrium, Dizziness, Numbness, Focal Weakness, Frequent Falls, Headaches, Lack of Coordination, Loss of Vision, Memory Loss, Paresthesias, Radicular Pain, Restless Legs, Sensory Deficit, Syncope, Tingling, Tremor, Vertigo, Weakness, Other Visual Disturbances, Other - Psychiatric Psychiatric: absent: As Per HPI, Abnormal Sleep Pattern, Anhedonia, Anxiety, Auditory Hallucinations, Behavioral Changes, Change in Appetite, Change in Libido, Confusion, Depression, Difficulty Concentrating, Hallucinations, Homicidal Ideation, Hopelessness, Irritability, Memory Loss, Mood Swings, Panic Attacks, Paranoia, Suicidal Ideation, Visual Hallucinations, Tactile Halluci nations, Other - Endocrine Endocrine: absent: As Per HPI, Change in Body Appearance, Change in Libido, Cold Intolorance, Deepening of Voice, Excessive Sweating, Fatigue, Flushing, Heat Intolorance, Increase in Ring/Shoe/Hat Size, Palpitations, Polydipsia, Polyp hagia, Polyuria, Other - Hematologic/Lymphatic Hematologic: absent: As Per HPI, Easy Bleeding, Easy Bruising, Lymphadenopathy, Other Past Patient History - Past Social History Smoking Status: Never Smoked - CARDIAC Hx Cardiac Disorders: Yes Hx Hypertension: Yes - ENDOCRINE/METABOLIC Hx Endocrine Disorders: Yes - MUSCULOSKELETAL/RHEUMATOLOGICAL Hx Falls: Yes - PSYCHIATRIC Hx Substance Use: No Meds Allergies/Adverse Reactions: Allergies Allergy/AdvReac Type Severity Reaction Status Date / Time No Known Allergies Allergy Verified 08/07/18 10:27 - Medications Medications: Current Medications Acetaminophen (Tylenol 325mg Tab) 650 mg PO Q6 PRN PRN Reason: Headache Acetaminophen (Tylenol 325mg Tab) 650 mg PO Q4 PRN PRN Reason: Other Atorvastatin Calcium (Lipitor) 20 mg PO DAILY [facility] Last Admin: 08/09/18 09:16 Dose: 20 mg Insulin Human Regular (Humulin R) 0 units SC ACCU-CHECK [facility]; Protocol Last Admin: 08/09/18 23:00 Dose: Not Given Propranolol HCl (Inderal) 10 mg PO TID [facility] Last Admin: 08/09/18 16:59 Dose: Not Given Ramipril (Altace) 2.5 mg PO DAILY [facility] Last Admin: 08/09/18 09:14 Dose: 2.5 mg Tramadol HCl (Ultram) 50 mg PO Q4 PRN PRN Reason: Pain, severe (8-10) Last Admin: 08/09/18 17:02 Dose: 50 mg Physical Exam - Constitutional Appears: Non-toxic - Head Exam Head Exam: NORMAL INSPECTION - Eye Exam Eye Exam: Normal appearance - ENT Exam ENT Exam: Mucous Membranes Moist - Neck Exam Neck exam: Positive for: Full Rom - Respiratory Exam Respiratory Exam: NORMAL BREATHING PATTERN - Cardiovascular Exam Cardiovascular Exam: REGULAR RHYTHM - GI/Abdominal Exam GI & Abdominal Exam: Normal Bowel Sounds - Rectal Exam Rectal Exam: Deferred - Extremities Exam Extremities exam: Negative for: pedal edema - Back Exam Back exam: NORMAL INSPECTION - Neurological Exam Neurological exam: Alert, Oriented x3 - Psychiatric Exam Psychiatric exam: Normal Affect - Skin Skin Exam: Normal Color Results - Vital Signs Recent Vital Signs: Last Vital Signs Temp 98.4 F 08/10/18 04:00 Pulse 56 L 08/10/18 06:00 Resp 25 H 08/10/18 06:00 BP 109/68 08/10/18 06:00 Pulse Ox 97 08/10/18 06:00 - Labs Result Diagrams: 08/10/18 06:00 08/10/18 06:00 Labs: Laboratory Results - last 24 hr 08/09/18 08/09/18 08/09/18 05:30 11:10 12:50 WBC RBC Hgb Hct MCV MCH MCHC RDW Plt Count PT 11.5 INR 1.0 APTT 35.9 Sodium Potassium Chloride Carbon Dioxide Anion Gap BUN Creatinine Est GFR ( Amer) Est GFR (Non-Af Amer) POC Glucose (mg/dL) 221 H Random Glucose Calcium Blood Type Blood Type Confirm A POSITIVE Antibody Screen BBK History Checked 08/09/18 08/09/18 08/09/18 16:02 18:30 21:05 WBC RBC Hgb Hct MCV MCH MCHC RDW Plt Count PT INR APTT Sodium Potassium Chloride Carbon Dioxide Anion Gap BUN Creatinine Est GFR ( Amer) Est GFR (Non-Af Amer) POC Glucose (mg/dL) 109 190 H Random Glucose Calcium Blood Type A POSITIVE Blood Type Confirm Antibody Screen Negative BBK History Checked No verified bt 08/10/18 08/10/18 08/10/18 06:00 06:00 06:00 WBC 4.8 RBC 4.45 Hgb 14.0 Hct 42.0 MCV 94.2 H MCH 31.4 H MCHC 33.3 RDW 14.2 Plt Count 200 PT 11.6 INR 1.0 APTT 38.9 H Sodium 137 Potassium 4.0 Chloride 97 L Carbon Dioxide 30 Anion Gap 14 BUN 16 Creatinine 0.7 L Est GFR ( Amer) > 60 Est GFR (Non-Af Amer) > 60 POC Glucose (mg/dL) Random Glucose 139 H Calcium 9.1 Blood Type Blood Type Confirm Antibody Screen BBK History Checked 08/10/18 06:55 WBC RBC Hgb Hct MCV MCH MCHC RDW Plt Count PT INR APTT Sodium Potassium Chloride Carbon Dioxide Anion Gap BUN Creatinine Est GFR ( Amer) Est GFR (Non-Af Amer) POC Glucose (mg/dL) 139 H Random Glucose Calcium Blood Type Blood Type Confirm Antibody Screen BBK History Checked - EKG Data EKG Interpreted by: Myself EKG shows normal: Sinus rhythm Assessment & Plan (1) Subdural hematoma Assessment and Plan: patient is scheduled for carniotomy. Although EKG suggests possible inferior infarction the patient is asymptomatic and hemodynamically stable from a cardaic standpoint. He will benefit from continued betablocker therapy. He is optimized for the planned surgery. will hold aspirin given subdural hematoma Status: Acute (2) Diabetes mellitus type 2 in nonobese Assessment and Plan: risk factor modificaiton Status: Acute (3) Hypertension Assessment and Plan: well controlled Status: Acute
[2018-08-10] MEDS: Insulin Regular 100 units/ml SC SCH ×3 (08:19→16:42)
[2018-08-10] MEDS ORDERED: Midazolam 2 MG/2 ML VIAL ONE (09:43)
[2018-08-10] MEDS ORDERED: Lidocaine 4% (Laryng-O-Jet) Kit MM ONE (09:43)
[2018-08-10] MEDS ORDERED: Etomidate 20 mg/10ml Inj IV ONE (09:44)
[2018-08-10] MEDS ORDERED: Phenylephrine 10 mg/ml Inj ONE (09:48)
[2018-08-10] MEDS ORDERED: Bacitracin Ointment 30 GM TUBE ONE (09:49)
[2018-08-10] MEDS ORDERED: Lidocaine 1% w Epi 1:100,000 Inj ONE (09:50)
[2018-08-10] MEDS ORDERED: TETRACAINE HCL IJ ONE (09:51)
[2018-08-10] MEDS ORDERED: Thrombin Topical 5,000 Int Units Spray Kit ONE (09:51)
[2018-08-10] MEDS ORDERED: Succinylcholine Chloride 20 mg/ml Syr (5 ml) IV ONE (09:51)
[2018-08-10] MEDS ORDERED: Rocuronium 10 mg/ml (5 ml) ONE (11:00)
[2018-08-10] MEDS ORDERED: Lidocaine/Epi 1% 1:100000 20 ML IJ ONE (11:07)
[2018-08-10] MEDS ORDERED: HEMOSTATIC MATRIX 10 ML DIS.NEEDLE TOP ONE (11:07)
[2018-08-10] MEDS ORDERED: Bacitracin OINT 15GM TOP ONE (11:07)
[2018-08-10] MEDS ORDERED: Neostigmine 1:1000 (1 mg/ml) Inj ONE (11:15)
[2018-08-10] MEDS ORDERED: ePHEDrine 50 mg/ml Inj ONE (11:28)
[2018-08-10] MEDS ORDERED: Thrombin Topical 5,000 Int Units Spray Kit TOP ONE (11:30)
[2018-08-10] MEDS ORDERED: Esmolol 100 mg/10ml Inj IV ONE (11:40)
[2018-08-10] MEDS ORDERED: Sodium Chloride 0.9% 1,000 ML IV ONE ×2 (12:02→13:20)
[2018-08-10] MEDS: Morphine 4 MG/ML VIAL IVP PRN ×2 (14:28→19:48)
--- NOTE | 2018-08-10 14:42 | PN ---
DATE: 08/10/2018 CRITICAL CARE PROGRESS NOTE. LOCATION: The patient in ICU, bed 424. TIME SPENT: Thirty-five minutes. The patient is seen and evaluated at the bedside. Case was discussed in multidisciplinary ICU rounds this morning. Past medical, surgical, family, and social history reviewed, as noted in H and P. SUBJECTIVE: A 72-year-old male with history significant for hypertension, diabetes mellitus type 2, essential tremors, osteoarthritis, depression, and hyperlipidemia, able to ambulate at home with help of a cane, fell at home and sustained subdural hematoma, admitted with subdural hematoma, overnight normotensive, afebrile. No seizure episodes, seen by Neurosurgery consult, awaiting for craniotomy and evacuation of subdural hematoma, remains alert and awake, follows commands appropriate. No headache, shortness of breath, chest pain, or palpitation. PHYSICAL EXAMINATION: VITAL SIGNS: Temperature 97.4, heart rate 60 regular, blood pressure 127/60, mean artery pressure 86, respiratory rate 18, and saturation 97% on oxygen supplement 2 L nasal cannula, intake 450, output 1200, and negative balance 750, weight 156 pounds. HEAD, EYES, EAR, NOSE, AND THROAT: Pupils are 2-3 mm, reactive, no nystagmus. NECK: Supple, trachea is central. CHEST: Bilateral breath sounds, clear to auscultation. HEART: Rhythm regular, S1 and S2 normal intensity. No S3 or S4 gallop. No audible murmur. ABDOMEN: Bowel sounds present, soft. Liver and spleen not palpable. Bladder not distended. EXTREMITIES: Without clubbing, cyanosis, or edema. NEUROLOGIC: Cranial nerves intact. No motor or sensory impairment. SKIN: Without any breakdown. CURRENT MEDICATIONS: Tylenol 650 mg every 6 hours p.r.n., Lipitor 20 mg p.o. daily, Accu-Check with regular insulin coverage, propranolol 10 mg p.o. 3 times daily, Altace 2.5 mg p.o. daily, and Ultram 50 mg p.o. every 4 hours p.r.n., on hold. LABORATORY DATA: WBC 4.8, hemoglobin 14, hematocrit 42, platelet count 200. PT 11.6, INR 1, PTT 38.9. SMA-7: Sodium 147, potassium 4, chloride 97, CO2 of 30, blood, urea, and nitrogen 16, creatinine 0.7, random glucose 139, and calcium 9.1. Nasal smear MRSA negative. Electrocardiogram, normal sinus rhythm, normal electrical axis, no ST-T changes. X-ray of the ribs, unremarkable. Radiographs for the chest and left ribs with no rib fracture. CT head done on 08/07/2018 showed [id number] right frontal convexity, subdural hemorrhage measuring 3.1 cm width and 10.5 cm length, 4 mm midline shift towards the left, mildly loculated. No other significant abnormality. IMPRESSION: NEUROLOGIC: [id number] right frontal subdural hemorrhage with minimal midline shift, status post recurrent falls at home, essential tremor, remains oriented to name, place, and time. PULMONARY: Chest x-ray, no acute infiltrate, no rib fracture. CARDIAC: History of hypertension, currently controlled. No cardiac arrhythmias noted in telemetry. GASTROINTESTINAL: No acute issues noted. RENAL: With normal renal function. HEMATOLOGY: No leukocytosis. Hemoglobin is 14, normal platelet count. PLAN: Keep head of bed at 30 degrees up, hold anticoagulation for prophylaxis secondary to subdural hematoma, analgesics as needed for pain. Follow the operative and postoperative course. Robbi Corbin MD
--- NOTE | 2018-08-10 15:32 | CARD ---
APPROVED REPORT Date of service: 08/10/2018 EKG Measurement Heart [id number] <Conclusion> Normal sinus rhythm Normal ECG
--- NOTE | 2018-08-10 21:25 | CP.PCM.PN ---
Subjective - Date & Time of Evaluation Date of Evaluation: 08/10/18 Time of Evaluation: 10:00 - Subjective Subjective: patient seen and examined at bedside. Interim events noted No complaints offered at this time denies cp/sob/fever/chills. available diagnostic data reviewed Review of Systems All systems: reviewed and no additional remarkable complaints except mentioned above Objective Vital Signs Stable - Constitutional Appears: Non-toxic, No Acute Distress Head Exam: NORMAL INSPECTION Eye Exam: Normal appearance Respiratory Exam: NORMAL BREATHING PATTERN Cardiovascular Exam: +S1, +S2 GI & Abdominal Exam: Soft Neurological Exam: Alert, Awake Psychiatric exam: Normal Affect, Normal Mood Skin Exam: Normal Color, Warm Assessment and Plan monitor vitals monitor labs Cont meds Cont tx consultants appreciated input For OR today rest of plan as ordered Assessment and Plan (1) Subdural hematoma Status: Acute
[2018-08-11 05:30] LABS: HEMOGLOBIN 14.4 g/dL (12.0-18.0); MEAN CELL VOLUME 94.2 fl (80.0-94.0); MEAN CORPUSCULAR HEMOGLOBIN 31.6 pg (27.0-31.0); MEAN CORPUSCULAR HGB CONC 33.6 g/dL (33.0-37.0); RBC 4.56 Mil/uL (4.40-5.90); RED CELL DISTRIBUTION WIDTH 14.1 % (11.5-14.5); WHITE BLOOD COUNT 6.9 K/uL (4.8-10.8)
[2018-08-11 05:42] LABS: BLOOD UREA NITROGEN 14 mg/dl (9-20); GFR NON-AFRICAN AMERICAN > 60
--- NOTE | 2018-08-11 07:01 | OP ---
PROCEDURE DATE: 08/10/2018 PREOPERATIVE DIAGNOSIS: Right chronic subdural hematoma. POSTOPERATIVE DIAGNOSIS: Right chronic subdural hematoma. OPERATIVE PROCEDURE: Right craniotomy, evacuation of subdural hematoma. SURGEON: Kameron Martinez MD DESCRIPTION OF PROCEDURE: The patient was brought to the operating room and intubated appropriately. Head was turned to the left. The right frontal parietal region was prepped and draped in the usual manner. A Lazy S incision was marked out just above the superior muslim line based about the suture. This was instilled with lidocaine with epinephrine and then incised sharply with Weitlaner retractors placed after retracting scalp flexed, two darlin holes were made, one inferior and one posterior connected with the craniotome. The underlying dura was opened in a cruciate manner. The underlying fluid was deep yellow. Specimen was sent and there was a fairly thick membrane which was in between the dura and the cortical surface with minimal outer membrane and minimal inner membrane. This membrane was coagulated and divided. Specimen was sent. The subdural space was thoroughly irrigated in multiple amounts of antibiotic irrigation until all returns were clear. A #12 Urdu red rubber catheter with extra side holes was passed through a separate stab wound into the subdural space and irrigated through the drain as well as through the craniotomy site again until all returns were clear. The dura was then re-approximated with 4-0 Nurolon. The Gelfoam was placed over the exposed dura and three CranioFix plates, one 16 mm and two 12 mm were then employed to replace the bone plate, and at this point, the scalp was re-approximated in two layers, 2-0 Vicryl and skin laury. The drain was tacked in the usual manner. Collection bag was attached. Sterile dressing was applied and the patient is currently is in the process of being woken from anesthesia. The blood loss was approximately 150 mL. All counts were correct. Specimen was subdural fluid and subdural membrane. Kameron Martinez MD
[2018-08-11] MEDS: Insulin Regular 100 units/ml SC SCH ×4 (08:20→22:24)
--- NOTE | 2018-08-11 09:13 | CP.CCUPN ---
CCU Subjective - Physician Review Subjective (Free Text): 08/11/18 12:11 The patient was Seen/interviewed and examined by me at the bedside during ICU round, Medical records reviewed and Management issues were discussed and formulated with the house staff. Events reviewed 72 Years old Male with PMHx of HTN, DM II, Dementia and frequent fells at home Who was Admitted with Left sided mid-chest/ rib pain, CT Brain shows a R-sided SDH with mild midline shift Underdwent carniotomy 08/10 Doing well today Awake, Comfortable, NAD Denies any chest pain, SOB or Palpitations Afebrile, NSR on the monitor Pain controlled on PRN Tylenol and Morphine Continue frequent neuro-check Scheduled for repeat brain CT in AM CCU Objective - Vital Signs / Intake & Output Vital Signs (Last 4 hours): Vital Signs Temp Pulse Resp BP Pulse Ox 08/11/18 08:22 67 134/63 08/11/18 08:00 98.8 F 64 18 134/63 96 08/11/18 07:00 61 15 127/66 96 08/11/18 06:00 67 21 133/71 96 Intake and Output (Last 8hrs): Intake & Output 08/10/18 08/11/18 08/11/18 22:59 06:59 14:59 Intake Total 320 0 Output Total 200 200 Balance 120 0 -200 Weight 158 lb Intake: IV 200 0 Oral 120 Output: Urine 200 200 Urine, Voided 200 200 Other: # Voids Urine, Voided 1 1 - Physical Exam Head: Positive for: Normocephalic Pupils: Positive for: PERRL Conjunctiva: Positive for: Normal Ears: Positive for: Normal Mouth: Positive for: Dry Pharnyx: Positive for: Normal Nose (External): Positive for: Atraumatic Neck: Positive for: Normal Range of Motion Respiratory/Chest: Positive for: Clear to Auscultation Cardiovascular: Positive for: Regular Rate and Rhythm Abdomen: Positive for: Normal Bowel Sounds Upper Extremity: Positive for: Normal Inspection Lower Extremity: Positive for: Normal Inspection Psychiatric: Positive for: Alert - Medications Active Medications: Active Medications Generic Name Dose Route Start Last Admin Trade Name Freq PRN Reason Stop Dose Admin Acetaminophen 650 mg 08/07/18 17:20 Tylenol 325mg Tab PO Q6 PRN Headache Acetaminophen 650 mg 08/08/18 06:22 08/11/18 08:25 Tylenol 325mg Tab PO 650 mg Q4 PRN Administration Other Atorvastatin Calcium 20 mg 08/08/18 09:00 08/11/18 08:22 Lipitor PO 20 mg DAILY ROSI Administration Insulin Human Regular 0 units 08/07/18 23:00 08/11/18 08:20 Humulin R SC 2 units ACCU-CHECK ROSI Administration Protocol Morphine Sulfate 2 mg 08/10/18 14:16 08/10/18 19:48 Morphine IVP 2 mg Q4 PRN Administration Pain, severe (8-10) Polyethylene Glycol 17 gm 08/11/18 22:00 Miralax PO HS ROSI Propranolol HCl 10 mg 08/09/18 09:00 08/11/18 08:22 Inderal PO 10 mg TID ROSI Administration Ramipril 2.5 mg 08/08/18 09:00 08/11/18 08:22 Altace PO 2.5 mg DAILY ROSI Administration - Patient Studies Lab Studies: Lab Studies 08/11/18 08/11/18 08/11/18 Range/Units 05:19 04:45 04:45 WBC 6.9 (4.8-10.8) K/uL RBC 4.56 (4.40-5.90) Mil/uL Hgb 14.4 (12.0-18.0) g/dL Hct 43.0 (35.0-51.0) % MCV 94.2 H (80.0-94.0) fl MCH 31.6 H (27.0-31.0) pg MCHC 33.6 (33.0-37.0) g/dL RDW 14.1 (11.5-14.5) % Plt Count 213 (130-400) K/uL Sodium 133 (132-148) mmol/l Potassium 4.0 (3.6-5.0) MMOL/L Chloride 93 L (98-107) mmol/L Carbon Dioxide 29 (22-30) mmol/L Anion Gap 15 (10-20) BUN 14 (9-20) mg/dl Creatinine 0.8 (0.8-1.5) mg/dl Est GFR ( Amer) > 60 Est GFR (Non-Af Amer) > 60 POC Glucose (mg/dL) 173 H (65-110) mg/dL Random Glucose 159 H (75-110) mg/dL Calcium 9.0 (8.4-10.2) mg/dL 08/10/18 08/10/18 08/10/18 Range/Units 21:06 16:12 12:41 WBC (4.8-10.8) K/uL RBC (4.40-5.90) Mil/uL Hgb (12.0-18.0) g/dL Hct (35.0-51.0) % MCV (80.0-94.0) fl MCH (27.0-31.0) pg MCHC (33.0-37.0) g/dL RDW (11.5-14.5) % Plt Count (130-400) K/uL Sodium (132-148) mmol/l Potassium (3.6-5.0) MMOL/L Chloride (98-107) mmol/L Carbon Dioxide (22-30) mmol/L Anion Gap (10-20) BUN (9-20) mg/dl Creatinine (0.8-1.5) mg/dl Est GFR ( Amer) Est GFR (Non-Af Amer) POC Glucose (mg/dL) 171 H 146 H 140 H (65-110) mg/dL Random Glucose (75-110) mg/dL Calcium (8.4-10.2) mg/dL Laboratory Results - last 24 hr 08/10/18 08/10/18 08/10/18 12:41 16:12 21:06 WBC RBC Hgb Hct MCV MCH MCHC RDW Plt Count Sodium Potassium Chloride Carbon Dioxide Anion Gap BUN Creatinine Est GFR ( Amer) Est GFR (Non-Af Amer) POC Glucose (mg/dL) 140 H 146 H 171 H Random Glucose Calcium 08/11/18 08/11/18 08/11/18 04:45 04:45 05:19 WBC 6.9 RBC 4.56 Hgb 14.4 Hct 43.0 MCV 94.2 H MCH 31.6 H MCHC 33.6 RDW 14.1 Plt Count 213 Sodium 133 Potassium 4.0 Chloride 93 L Carbon Dioxide 29 Anion Gap 15 BUN 14 Creatinine 0.8 Est GFR ( Amer) > 60 Est GFR (Non-Af Amer) > 60 POC Glucose (mg/dL) 173 H Random Glucose 159 H Calcium 9.0 Fingerstick Blood Sugar Results: 173 Review of Systems - Constitutional Constitutional: UN - Respiratory Respiratory: absent: As Per HPI, Cough, Dyspnea, Hemoptysis, Dyspnea on Exertion, Wheezing, Snoring, Stridor, Pain on Inspiration, Chest Congestion, Excessive Mucous Production, Change in Mucous Color, Pain with Coughing, Other, UNREMARKABLE - Gastrointestinal Gastrointestinal: absent: As Per HPI, Abdominal Pain, Belching, Bloating, Change in Bowel Habits, Change in Stool Character, Coffee Ground Emesis, Constipation, Cramping, Diarrhea, Dyspepsia, Dysphagia, Early Satiety, Excessive Flatus, Fecal Incontinence, Heartburn, Hematemesis, Hematochezia, Loose Stools, Melena, Nausea, Odynophagia, Temesmus, Vomiting, Other, UNREMARKABLE - Neurological Neurological: Abnormal Gait, Disequilibrium. absent: Abnormal Hearing, Abnormal Movements, Convulsions, Dizziness, Focal Weakness Critical Care Progress Note - Extremities/Vascular Does the Patient have a Central Venous Catheter?: No Does the Patient need a Central Venous Catheter?: No Does the Patient have a [place]ango Catheter?: No Does the Patient need a Tarango Catheter?: No - Nutrition Nutrition: Nutrition Category Date Time Status Heart Healthy Diet [DIET] Diets 08/10/18 Dinner Active Assessment/Plan (1) Subdural hematoma Current Visit: Yes Status: Acute Priority: High (2) Diabetes mellitus type 2 in nonobese Current Visit: Yes Status: Acute Priority: Medium (3) Hypertension Current Visit: Yes Status: Acute Priority: Medium (4) Gait difficulty Current Visit: Yes Status: Acute Priority: Medium
--- NOTE | 2018-08-11 10:22 | CP.PCM.PN ---
Subjective - Date & Time of Evaluation Date of Evaluation: 08/11/18 Time of Evaluation: 10:22 - Subjective Subjective: pod1 a a ox3 ALDAIR EOM full good st tremulous in l arm but no real drift CTin AM Objective - Vital Signs/Intake and Output Vital Signs (last 24 hours): Temp Pulse Resp BP Pulse Ox 98.8 F 63 15 124/61 95 08/11/18 08:00 08/11/18 09:00 08/11/18 09:00 08/11/18 09:00 08/11/18 09:00 Intake and Output: 08/11/18 08/11/18 06:59 18:59 Intake Total 0 Output Total 200 Balance 0 -200 - Medications Medications: Current Medications Acetaminophen (Tylenol 325mg Tab) 650 mg PO Q6 PRN PRN Reason: Headache Acetaminophen (Tylenol 325mg Tab) 650 mg PO Q4 PRN PRN Reason: Other Last Admin: 08/11/18 08:25 Dose: 650 mg Atorvastatin Calcium (Lipitor) 20 mg PO DAILY [facility] Last Admin: 08/11/18 08:22 Dose: 20 mg Insulin Human Regular (Humulin R) 0 units SC ACCU-CHECK [facility]; Protocol Last Admin: 08/11/18 08:20 Dose: 2 units Morphine Sulfate (Morphine) 2 mg IVP Q4 PRN PRN Reason: Pain, severe (8-10) Last Admin: 08/10/18 19:48 Dose: 2 mg Polyethylene Glycol (Miralax) 17 gm PO HS [facility] Propranolol HCl (Inderal) 10 mg PO TID [facility] Last Admin: 08/11/18 08:22 Dose: 10 mg Ramipril (Altace) 2.5 mg PO DAILY [facility] Last Admin: 08/11/18 08:22 Dose: 2.5 mg - Labs Labs: 08/11/18 04:45 08/11/18 04:45 PT 11.6 Seconds (9.8-13.1) 08/10/18 06:00 INR 1.0 08/10/18 06:00 APTT 38.9 Seconds (25.6-37.1) H 08/10/18 06:00
[2018-08-11] MEDS: POLYETHYLENE GLYCOL 3350 17 GM/Dose PACKET PO SCH (21:05)
--- NOTE | 2018-08-11 22:05 | PQF ---
PROVIDER RESPONSE TEXT: Provider was unable to determine a response for this query. REVIEWER QUERY TEXT: Conflicting Documentation Clarification A single mention of Rule out Acute Rhabdomyolysis is documented in the .EMR Please document if the condition is: -- Confirmed and current -- Confirmed, treated and resolved -- Ruled out -- Other, please specify Total Creatinine Kinase: 572->245 08/07 Critical Care note includes: IMPRESSION / MAJOR PROBLEMS NOW: 1.S/p Fall at Home 2.R SDH with elements of chronicity, with small midline shift. 3.Azotemia /dehydration 4. r/o Acute Rhabdomyolysis 5. h/o Dementia IV hydration The patient's Clinical Indicators include: -- Query created by: Jaqueline Argueta on 08/11/2018 11:46 AM Electronically signed by: Willie Newman 08/11/2018 10:02 PM
--- NOTE | 2018-08-11 22:05 | PQF ---
PROVIDER RESPONSE TEXT: Subdural hematoma REVIEWER QUERY TEXT: Clarification of Clinical Diagnostic Findings Please clarify if there is an associated diagnosis to go along with the documentation of a mid line s hift OR: Disagree OR: Other explanation of clinical finding 08/[address]: Acute on chronic right frontal convexity subdural hemorrhage, 3.1 cm width and 10.5 cm length.4 mm midline shift towards the left as a result of mass effect from the subdural collection. Mildly loculated.No other significant abnormality 08/07 Critical Care note: Subjective: (Free Text)Preliminary CT Brain shows a R-sided SDH with mild mi dline shift. LABS: -R SDH with elements of chronicity, with small midline shift. IMPRESSION / MAJOR PROBLEMS include: 1.S/p Fall at Home 2.R SDH with elements of chronicity, with small midline shift. Plan: NeuroSurg eval, Neurochecks, HOB elevation, SCDs, keep SBP no higher than 130-140, maintain normogylcemia, IVF hydration.Repeat Brain imaging as per Neurology / NeuroSurg, or with any acute deterioration evident. 08/08 Critical Care note: 4 mm midline shift towards the left as a result of mass effect from the subd ural collection The patient's Clinical Indicators include: --- Query created by: Jaqueline Argueta on 08/11/2018 11:44 AM Electronically signed by: Willie Newman 08/11/2018 10:02 PM
--- NOTE | 2018-08-11 22:32 | PQF ---
PROVIDER RESPONSE TEXT: Subdural hematoma REVIEWER QUERY TEXT: Clarification of Clinical Diagnostic Findings Please clarify if there is an associated diagnosis to go along with the documentation of a mid line s hift OR: Disagree OR: Other explanation of clinical finding 08/[address]: Acute on chronic right frontal convexity subdural hemorrhage, 3.1 cm width and 10.5 cm length.4 mm midline shift towards the left as a result of mass effect from the subdural collection. Mildly loculated.No other significant abnormality 08/07 Critical Care note: Subjective: (Free Text)Preliminary CT Brain shows a R-sided SDH with mild mi dline shift. LABS: -R SDH with elements of chronicity, with small midline shift. IMPRESSION / MAJOR PROBLEMS include: 1.S/p Fall at Home 2.R SDH with elements of chronicity, with small midline shift. Plan: NeuroSurg eval, Neurochecks, HOB elevation, SCDs, keep SBP no higher than 130-140, maintain normogylcemia, IVF hydration.Repeat Brain imaging as per Neurology / NeuroSurg, or with any acute deterioration evident. 08/08 Critical Care note: 4 mm midline shift towards the left as a result of mass effect from the subd ural collection The patient's Clinical Indicators include: --- Query created by: Jaqueline Argueta on 08/10/2018 1:58 PM Electronically signed by: Wander Rivas MD 08/11/2018 10:28 PM
--- NOTE | 2018-08-11 22:32 | PQF ---
PROVIDER RESPONSE TEXT: Provider was unable to determine a response for this query. REVIEWER QUERY TEXT: Conflicting Documentation Clarification A single mention of Rule out Acute Rhabdomyolysis is documented in the .EMR Please document if the condition is: -- Confirmed and current -- Confirmed, treated and resolved -- Ruled out -- Other, please specify Total Creatinine Kinase: 572->245 08/07 Critical Care note includes: IMPRESSION / MAJOR PROBLEMS NOW: 1.S/p Fall at Home 2.R SDH with elements of chronicity, with small midline shift. 3.Azotemia /dehydration 4. r/o Acute Rhabdomyolysis 5. h/o Dementia IVF 1,000 ccs x 1 hr.->125 ccs x 8hrs The patient's Clinical Indicators include: --- Query created by: Jaqueline Argueta on 08/10/2018 2:13 PM Electronically signed by: Wander Rivas MD 08/11/2018 10:28 PM
[2018-08-12 05:29] LABS: HEMOGLOBIN 14.9 g/dL (12.0-18.0); MEAN CORPUSCULAR HGB CONC 33.7 g/dL (33.0-37.0); RBC 4.65 Mil/uL (4.40-5.90); RED CELL DISTRIBUTION WIDTH 13.8 % (11.5-14.5); WHITE BLOOD COUNT 7.4 K/uL (4.8-10.8)
[2018-08-12 05:41] LABS: ALB/GLOB RATIO 1.2 (1.0-2.1); ALT/SGPT 39 U/L (21-72); AST/SGOT 26 U/L (17-59); BLOOD UREA NITROGEN 13 mg/dl (9-20); CALCIUM 9.5 mg/dL (8.4-10.2); GFR NON-AFRICAN AMERICAN > 60
[2018-08-12] MEDS: Insulin Regular 100 units/ml SC SCH ×4 (06:24→23:28)
--- NOTE | 2018-08-12 07:28 | CP.PCM.PN ---
Subjective - Date & Time of Evaluation Date of Evaluation: 08/11/18 Time of Evaluation: 11:00 - Subjective Subjective: Patient is doing very well on postop day # 1 Has minimal headaches Has no fever. Vitals are stable Objective - Vital Signs/Intake and Output Vital Signs (last 24 hours): Temp Pulse Resp BP Pulse Ox 97.8 F 69 15 131/65 98 08/12/18 06:00 08/12/18 06:00 08/12/18 06:00 08/12/18 06:00 08/12/18 06:00 Intake and Output: 08/12/18 08/12/18 06:59 18:59 Intake Total 370 Output Total 1090 Balance -720 - Medications Medications: Current Medications Acetaminophen (Tylenol 325mg Tab) 650 mg PO Q6 PRN PRN Reason: Headache Acetaminophen (Tylenol 325mg Tab) 650 mg PO Q4 PRN PRN Reason: Other Last Admin: 08/12/18 05:19 Dose: 650 mg Atorvastatin Calcium (Lipitor) 20 mg PO DAILY [facility] Last Admin: 08/11/18 08:22 Dose: 20 mg Insulin Human Regular (Humulin R) 0 units SC ACCU-CHECK [facility]; Protocol Last Admin: 08/12/18 06:24 Dose: 2 units Morphine Sulfate (Morphine) 2 mg IVP Q4 PRN PRN Reason: Pain, severe (8-10) Last Admin: 08/10/18 19:48 Dose: 2 mg Polyethylene Glycol (Miralax) 17 gm PO HS [facility] Last Admin: 08/11/18 21:05 Dose: 17 gm Propranolol HCl (Inderal) 10 mg PO TID [facility] Last Admin: 08/11/18 17:21 Dose: 10 mg Ramipril (Altace) 2.5 mg PO DAILY [facility] Last Admin: 08/11/18 08:22 Dose: 2.5 mg - Labs Labs: 08/12/18 04:35 08/12/18 04:35 PT 11.6 Seconds (9.8-13.1) 08/10/18 06:00 INR 1.0 08/10/18 06:00 APTT 38.9 Seconds (25.6-37.1) H 08/10/18 06:00 - Head Exam Head Exam: NORMAL INSPECTION - Eye Exam Eye Exam: Normal appearance - Respiratory Exam Respiratory Exam: Clear to Ausculation Bilateral - Cardiovascular Exam Cardiovascular Exam: REGULAR RHYTHM - GI/Abdominal Exam GI & Abdominal Exam: Normal Bowel Sounds - Neurological Exam Neurological Exam: Awake, Oriented x3 - Psychiatric Exam Psychiatric exam: Normal Mood Assessment and Plan (1) Subdural hematoma Status: Acute (2) Hypertension Status: Acute (3) Diabetes mellitus type 2 in nonobese Status: Acute (4) Fall Status: Acute (5) Depression Status: Acute (6) Essential tremor Status: Acute (7) Osteoarthritis Status: Acute (8) Gait difficulty Status: Acute - Assessment and Plan (Free Text) Plan: Cont meds Cont icu for 24 hrs start PT as soon as drain is removed. acutre rehab eval
--- NOTE | 2018-08-12 09:46 | CT ---
Date of service: 08/12/2018 PROCEDURE: CT HEAD WITHOUT CONTRAST. HISTORY: follow up COMPARISON: Noncontrast head CT 08/07/2018. TECHNIQUE: Axial computed tomography images were obtained through the head/brain without intravenous contrast. Radiation dose: Total exam DLP = 822.62 mGy-cm. This CT exam was performed using one or more of the following dose reduction techniques: Automated exposure control, adjustment of the mA and/or kV according to patient size, and/or use of iterative reconstruction technique. FINDINGS: HEMORRHAGE: In the interval, the patient is now status post right frontal craniotomy with subdural drainage catheter in situ at the right subdural hematoma. Pneumocephaly is identified postoperatively with limited acute or subacute hemorrhage identified at the dependent and superior portion of the subdural hematoma which remains predominantly chronic in density. The hematoma measures 2.4 cm greatest transverse dimension and 10.3 cm length with limited reduction in leftward midline shift now measuring 8 mm (remeasured and previous CT at 9.1 mm). A mild right frontoparietal scalp hematoma is appreciated in the interval. BRAIN: Stable loss of sulcation at the mid to upper right cerebral sulci is reiterated due to subdural hematoma. Leftward shift as discussed above. No additional interval extra-axial fluid collection appreciable. Posterior fossa contents appear stable and unremarkable. VENTRICLES: Unremarkable exclusive of leftward shift. Basilar cisterns remain well preserved. No hydrocephalus. CALVARIUM: Unremarkable. PARANASAL SINUSES: Unremarkable as visualized. No significant inflammatory changes. MASTOID AIR CELLS: Unremarkable as visualized. No inflammatory changes. OTHER FINDINGS: None. IMPRESSION: Interval right frontoparietal craniotomy with right subdural drainage catheter in position. Limited acute subacute subdural hemorrhage is identified within predominate chronic right subdural hematoma slightly smaller in volume with limited reduction in leftward midline shift of 8 mm as discussed above. Limited postoperative pneumocephaly noted as well as right frontal parietal mild scalp hematoma. Continued clinical and CT vigilance recommended.
--- NOTE | 2018-08-12 10:25 | CP.CCUPN ---
CCU Subjective - Physician Review Subjective (Free Text): S/p SDH evacuation POD 31-2, mild disorientation and forgetfulness to place and time, no new focal deficits, exhibits mild clumsiness, but no speech impediments. Other vitals and I/O's reviewed. SBP 135-146 range, HR 60s, febrile, RR 16, SPO2 99% on RA ROS: No other pertinent negs or positives on 10+ system review. PMSFH: All other Nursing and physician documentation reviewed to date; no new pertinent info noted relevant to current medical problems. EXAM- HEENT: no icterus, no gaze preference, equal Pupils, both reactive, no nystagmus, drain intach over R temporal area, sanguineous drainage 190 ml total so sfar. NECK: no JVD visible, supple, carotids equal upstroke bilat/no bruit CHEST: clear BS bilat, no wheezes audible, mild tenderness on palpation over Left 5th -6th lateral ribs HEART: regular, distant, S1S2, no rubs ABD: soft, no distension, no focal tenderness, no tympany, no guarding, no organomegaly, BS hypoactive. EXT: no LE edema, no mottling; no calf tenderness or palpable cords, distal pulses intact and symmetrical, no cyanosis; small bruise with scar over L elbow, small ecchymosis over L lateral biceps area. NEURO: mild tremors LUE upon motion, none at rest, no gross focal motor deficits, sensory intact bilat, GCS= 15 SKIN: no rashes, warm and dry LABS: WBC= 7.4 HGB= 14.9 PLTs= 203K Na= 135 K= 4.2 CL= 95 HCO3= 29 BUN/Cr= 13/0.7 BS= [address] Head: results reviewed. IMPRESSION / MAJOR PROBLEMS NOW: 1. S/p Fall at Home 2. R SDH with elements of chronicity, with small midline shift. 3. Azotemia /dehydration 4. r/o Acute Rhabdomyolysis 5. h/o Dementia PLAN: 1. NeuroSurg eval, Neurochecks, HOB elevation, SCDs, keep SBP no higher than 130-140, maintain normogylcemia, IVF hydration. Repeat Brain imaging as per Neurology / NeuroSurg, or with any acute deterioration evident. 2. Physical therapy eval when OK by NeuroSurg 3. Holding all CRANE HOOKER-acting meds from Home: Risperdal, Sertraline. No s/sx of withdrawal nor increased agitation.
--- NOTE | 2018-08-12 13:16 | CP.PCM.PN ---
Subjective - Date & Time of Evaluation Date of Evaluation: 08/12/18 Time of Evaluation: 13:15 - Subjective Subjective: pt fully a a ox3 no motor deficit ct showed some residual sdh Drain d/rocco will mobilize pt get oob and adv act suggest transfer to subacute when othewise medically clear Objective - Vital Signs/Intake and Output Vital Signs (last 24 hours): Temp Pulse Resp BP Pulse Ox 98.4 F 65 17 117/69 98 08/12/18 12:00 08/12/18 12:14 08/12/18 12:00 08/12/18 12:14 08/12/18 12:00 Intake and Output: 08/12/18 08/12/18 06:59 18:59 Intake Total 370 500 Output Total 1090 Balance -720 500 - Medications Medications: Current Medications Acetaminophen (Tylenol 325mg Tab) 650 mg PO Q6 PRN PRN Reason: Headache Acetaminophen (Tylenol 325mg Tab) 650 mg PO Q4 PRN PRN Reason: Other Last Admin: 08/12/18 05:19 Dose: 650 mg Atorvastatin Calcium (Lipitor) 20 mg PO DAILY [facility] Last Admin: 08/12/18 08:56 Dose: 20 mg Insulin Human Regular (Humulin R) 0 units SC ACCU-CHECK [facility]; Protocol Last Admin: 08/12/18 11:26 Dose: 4 units Morphine Sulfate (Morphine) 2 mg IVP Q4 PRN PRN Reason: Pain, severe (8-10) Last Admin: 08/10/18 19:48 Dose: 2 mg Polyethylene Glycol (Miralax) 17 gm PO HS [facility] Last Admin: 08/11/18 21:05 Dose: 17 gm Propranolol HCl (Inderal) 10 mg PO TID [facility] Last Admin: 08/12/18 12:14 Dose: 10 mg Ramipril (Altace) 2.5 mg PO DAILY [facility] Last Admin: 08/12/18 08:56 Dose: 2.5 mg - Labs Labs: 08/12/18 04:35 08/12/18 04:35 PT 11.6 Seconds (9.8-13.1) 08/10/18 06:00 INR 1.0 08/10/18 06:00 APTT 38.9 Seconds (25.6-37.1) H 08/10/18 06:00
[2018-08-12] MEDS: POLYETHYLENE GLYCOL 3350 17 GM/Dose PACKET PO SCH (22:00)
[2018-08-13 05:26] LABS: HEMOGLOBIN 14.4 g/dL (12.0-18.0); MEAN CELL VOLUME 93.8 fl (80.0-94.0); MEAN CORPUSCULAR HEMOGLOBIN 31.6 pg (27.0-31.0); MEAN CORPUSCULAR HGB CONC 33.7 g/dL (33.0-37.0); RBC 4.54 Mil/uL (4.40-5.90); WHITE BLOOD COUNT 6.8 K/uL (4.8-10.8)
[2018-08-13 05:42] LABS: ALB/GLOB RATIO 1.3 (1.0-2.1); ALBUMIN 3.8 g/dL (3.5-5.0); ALT/SGPT 48 U/L (21-72); AST/SGOT 37 U/L (17-59); BLOOD UREA NITROGEN 15 mg/dl (9-20); CALCIUM 9.1 mg/dL (8.4-10.2); GFR NON-AFRICAN AMERICAN > 60
[2018-08-13] MEDS: Insulin Regular 100 units/ml SC SCH ×4 (06:09→22:00)
--- NOTE | 2018-08-13 23:15 | CP.PCM.PN ---
Subjective - Date & Time of Evaluation Date of Evaluation: 08/12/18 Time of Evaluation: 11:30 - Subjective Subjective: Pt seen and assessed at bedside, diagnosis of subdural hematoma, which required surgical evacuation. The patient is currently alert and awake but confused. Mild left sided weakness is noted. Neurology and neurosurgery are on consult. Review of Systems - Review of Systems All systems: reviewed and no additional remarkable complaints except Review of Systems: pain - Constitutional Constitutional: Weakness Objective - Vital Signs/Intake and Output Vital Signs (last 24 hours): Temp Pulse Resp BP Pulse Ox 98.5 F 62 15 116/66 97 08/13/18 20:00 08/13/18 22:00 08/13/18 22:00 08/13/18 22:00 08/13/18 22:00 Intake and Output: 08/13/18 08/14/18 18:59 06:59 Intake Total 1200 0 Output Total 700 200 Balance 500 -200 - Medications Medications: Current Medications Acetaminophen (Tylenol 325mg Tab) 650 mg PO Q6 PRN PRN Reason: Headache Acetaminophen (Tylenol 325mg Tab) 650 mg PO Q4 PRN PRN Reason: Other Last Admin: 08/12/18 05:19 Dose: 650 mg Atorvastatin Calcium (Lipitor) 20 mg PO DAILY [facility] Last Admin: 08/13/18 08:36 Dose: 20 mg Insulin Human Regular (Humulin R) 0 units SC ACCU-CHECK [facility]; Protocol Last Admin: 08/13/18 16:41 Dose: Not Given Morphine Sulfate (Morphine) 2 mg IVP Q4 PRN PRN Reason: Pain, severe (8-10) Last Admin: 08/10/18 19:48 Dose: 2 mg Polyethylene Glycol (Miralax) 17 gm PO HS [facility] Last Admin: 08/12/18 22:00 Dose: 17 gm Propranolol HCl (Inderal) 10 mg PO TID [facility] Last Admin: 08/13/18 16:07 Dose: 10 mg Ramipril (Altace) 2.5 mg PO DAILY [facility] Last Admin: 08/13/18 08:36 Dose: 2.5 mg - Labs Labs: 08/13/18 04:35 08/13/18 04:35 PT 11.6 Seconds (9.8-13.1) 08/10/18 06:00 INR 1.0 08/10/18 06:00 APTT 38.9 Seconds (25.6-37.1) H 08/10/18 06:00 - Head Exam Additional comments: incision/surgical site on right temporal area of the head. - Eye Exam Eye Exam: EOMI, Normal appearance, PERRL Pupil Exam: PERRL - ENT Exam ENT Exam: Mucous Membranes Moist - Neck Exam Neck Exam: Normal Inspection - Respiratory Exam Respiratory Exam: Decreased Breath Sounds - Cardiovascular Exam Cardiovascular Exam: REGULAR RHYTHM, +S1, +S2 - GI/Abdominal Exam GI & Abdominal Exam: Soft, Normal Bowel Sounds - Extremities Exam Additional comments: left sided weakness. Tremor noted to upper extremities bilaterally. - Back Exam Back Exam: tenderness - Neurological Exam Neurological Exam: Alert, Awake Neuro motor strength exam: Left Upper Extremity: 4, Right Upper Extremity: 5, Left Lower Extremity: 3, Right Lower Extremity: 5 Additional comments: confused. - Psychiatric Exam Psychiatric exam: Normal Affect, Normal Mood - Skin Skin Exam: Dry, Warm Additional comments: abrasion to the left elbow Assessment and Plan (1) Subdural hematoma Assessment & Plan: 1.) Subdural Hematoma S/P fall at home. -Initial CT Head showed right sided subdural hematoma with midline shift. -evacuation of hematoma was done by neurosurgery. -neurosurgery consult input appreciated. -neuro checks + SBP monitoring. -Left upper and left lower extremity weakness noted; continue working with PT/OT. Status: Acute
[2018-08-13] MEDS: POLYETHYLENE GLYCOL 3350 17 GM/Dose PACKET PO SCH (23:57)
[2018-08-14 05:32] LABS: MEAN CELL VOLUME 94.2 fl (80.0-94.0); MEAN CORPUSCULAR HEMOGLOBIN 31.5 pg (27.0-31.0); MEAN CORPUSCULAR HGB CONC 33.4 g/dL (33.0-37.0); RBC 4.46 Mil/uL (4.40-5.90); RED CELL DISTRIBUTION WIDTH 13.9 % (11.5-14.5); WHITE BLOOD COUNT 6.9 K/uL (4.8-10.8)
[2018-08-14] MEDS: Insulin Regular 100 units/ml SC SCH ×3 (07:04→17:10)
[2018-08-14 08:27] LABS: ALB/GLOB RATIO 1.3 (1.0-2.1); ALBUMIN 3.8 g/dL (3.5-5.0); ALT/SGPT 70 U/L (21-72); AST/SGOT 46 U/L (17-59); BLOOD UREA NITROGEN 16 mg/dl (9-20); CALCIUM 9.1 mg/dL (8.4-10.2); GFR NON-AFRICAN AMERICAN > 60
[2018-08-14 17:05] VITALS: TEMP 98.3
[2018-08-14 18:46] VITALS: BP 126/67; PULSE 67; RESP 19; O2SAT 98
--- NOTE | 2018-08-15 17:53 | CP.PCM.PN ---
Subjective - Date & Time of Evaluation Date of Evaluation: 08/13/18 Time of Evaluation: 11:00 - Subjective Subjective: patient seen and examined at bedside. Interim events noted No complaints offered at this time, post op feeling well denies cp/sob/fever/chills. available diagnostic data reviewed Review of Systems All systems: reviewed and no additional remarkable complaints except mentioned above Objective Vital Signs Stable - Constitutional Appears: Non-toxic, No Acute Distress Head Exam: laury of right head noted from surgical site, c/d/i Eye Exam: Normal appearance Respiratory Exam: NORMAL BREATHING PATTERN Cardiovascular Exam: +S1, +S2 GI & Abdominal Exam: Soft Neurological Exam: Alert, Awake Psychiatric exam: Normal Affect, Normal Mood Skin Exam: Normal Color, Warm Assessment and Plan monitor vitals monitor labs Cont meds Cont tx consultants appreciated input dispo planning rest of plan as ordered Assessment and Plan (1) Subdural hematoma Status: Acute
--- NOTE | 2018-08-16 11:50 | PQF ---
PROVIDER RESPONSE TEXT: Provider was unable to determine a response for this query. REVIEWER QUERY TEXT: Pressure Ulcer Type Pressure ulcers are documented in the Medical Record. Please specify the location, and stage of the pressure ulcer(s)Versus; -- Disagree --Unable to determine --Other explanation of clinical finding Nurses Admission Assess: Pressure Ulcer POA: none 08/10 service car operator Pressure Ulcer Assessment::1. left elbow- full thickness tissue loss in which the base of the ulcer is covered 2, sacrum-partial thickness loss of dermis presenting as a shallow open ulcer 08/11 Wound RN note; left elbow has a scab that was present on admission post fall. It is intact with no erythema. 08/13 service car operator: Pressure Ulcer Assessment: Sacrum: Intact skin with non-blanchable redness of a locali zed area Stage of each pressure ulcer (National Pressure Ulcer Advisory Panel definitions): -- Stage I: Intact skin with non-blanchable redness of a localized area -- Stage II: Partial thickness skin loss involving dermis with a shallow open ulcer or an open serum -filled blister -- Stage III: Full thickness skin loss involving damage or necrosis of subcutaneous tissue -- Stage IV: Full thickness skin loss with exposed bone, tendon or muscle -- Unstageable: Full thickness tissue loss in which the base of the ulcer is covered by slough and/o r eschar in the wound bed The patient's Clinical Indicators include: --- Query created by: Jaqueline Argueta on 08/14/2018 10:31 AM Electronically signed by: Willie Newman 08/16/2018 11:48 AM
--- NOTE | 2018-08-16 18:52 | CP.PCM.DIS ---
Provider - Provider Date of Admission: 08/07/18 13:46 Attending physician: Wander Rivas MD Consults: 08/07/18 13:16 Neuro Surgery Consult Stat Comment: Consulting Provider: Kameron Martinez Consulting Physician: Kameron Martinez Reason for Consult: subdural hematoma, 4mm midline shift 08/07/18 16:22 Nursing Referral for Wound Care Routine Comment: Physician Instructions: Reason For Exam: abrasion to left elbow Pastoral Care Referral Routine Comment: Physician Instructions: Reason For Exam: requests 08/07/18 16:24 Case Management Referral Routine Comment: Physician Instructions: Reason For Exam: Reason for Referral: Discharge Planning 08/09/18 14:38 Cardiology Consult Routine Comment: Consulting Provider: Duglas Martinez Consulting Physician: Duglas Martinez Reason for Consult: cardiology clearance Time Spent in preparation of Discharge (in minutes): 30 Diagnosis - Discharge Diagnosis (1) Subdural hematoma Status: Acute (2) Hypertension Status: Acute Priority: Medium (3) Diabetes mellitus type 2 in nonobese Status: Acute Priority: Medium (4) Fall Status: Acute (5) Depression Status: Acute (6) Essential tremor Status: Acute Priority: High (7) Osteoarthritis Status: Acute (8) Gait difficulty Status: Acute Priority: Medium Hospital Course - Lab Results Lab Results: Micro Results 08/07/18 17:00 [place] MRSA Culture (Admit) - Final MRSA NOT DETECTED Most Recent Lab Values WBC 6.9 K/uL (4.8-10.8) 08/14/18 04:40 RBC 4.46 Mil/uL (4.40-5.90) 08/14/18 04:40 Hgb 14.0 g/dL (12.0-18.0) 08/14/18 04:40 Hct 42.0 % (35.0-51.0) 08/14/18 04:40 MCV 94.2 fl (80.0-94.0) H 08/14/18 04:40 MCH 31.5 pg (27.0-31.0) H 08/14/18 04:40 MCHC 33.4 g/dL (33.0-37.0) 08/14/18 04:40 RDW 13.9 % (11.5-14.5) 08/14/18 04:40 Plt Count 223 K/uL (130-400) 08/14/18 04:40 MPV 9.4 fl (7.2-11.7) 08/08/18 05:30 Neut % (Auto) 61.5 % (50.0-75.0) 08/08/18 05:30 Lymph % (Auto) 27.1 % (20.0-40.0) 08/08/18 05:30 [place] % (Auto) 6.9 % (0.0-10.0) 08/08/18 05:30 Eos % (Auto) 4.0 % (0.0-4.0) 08/08/18 05:30 Baso % (Auto) 0.5 % (0.0-2.0) 08/08/18 05:30 Neut # (Auto) 3.7 K/uL (1.8-7.0) 08/08/18 05:30 Lymph # (Auto) 1.6 K/uL (1.0-4.3) 08/08/18 05:30 [place] # (Auto) 0.4 K/uL (0.0-0.8) 08/08/18 05:30 Eos # (Auto) 0.2 K/uL (0.0-0.7) 08/08/18 05:30 Baso # (Auto) 0.0 K/uL (0.0-0.2) 08/08/18 05:30 Neutrophils % (Manual) 86 % (42-75) H 08/07/18 11:15 Band Neutrophils % 4 % (0-2) H 08/07/18 11:15 Lymphocytes % (Manual) 9 % (20-50) L 08/07/18 11:15 Monocytes % (Manual) 1 % (0-10) 08/07/18 11:15 Platelet Estimate Normal (NORMAL) 08/07/18 11:15 Large Platelets Present 08/07/18 11:15 Giant Platelets Present 08/07/18 11:15 Poikilocytosis (manual Slight 08/07/18 11:15 Anisocytosis (manual) Slight 08/07/18 11:15 [place] Cells 08/07/18 11:15 Acanthocytes (Spur) Hourly Sign Language Interpreter 08/07/18 11:15 PT 11.6 Seconds (9.8-13.1) 08/10/18 06:00 INR 1.0 08/10/18 06:00 APTT 38.9 Seconds (25.6-37.1) H 08/10/18 06:00 pO2 62 mm/Hg (30-55) H 08/07/18 12:55 VBG pH 7.40 (7.32-7.43) 08/07/18 12:55 VBG pCO2 42 mmHg (40-60) 08/07/18 12:55 VBG HCO3 25.5 mmol/L 08/07/18 12:55 VBG Total CO2 27.3 mmol/L (22-28) 08/07/18 12:55 VBG O2 Sat (Calc) 92.9 % (40-65) H 08/07/18 12:55 VBG Base Excess 1.0 mmol/L (0.0-2.0) 08/07/18 12:55 VBG Potassium 4.2 mmol/L (3.6-5.2) 08/07/18 12:55 Sodium 141.0 mmol/L (132-148) 08/07/18 12:55 Chloride 110.0 mmol/L (98-107) H 08/07/18 12:55 Glucose 150 mg/dL (75-110) H 08/07/18 12:55 Lactate 1.3 mmol/L (0.7-2.1) 08/07/18 12:55 FiO2 21.0 % 08/07/18 12:55 Sodium 135 mmol/l (132-148) 08/14/18 04:40 Potassium 4.2 MMOL/L (3.6-5.0) 08/14/18 04:40 Chloride 96 mmol/L (98-107) L 08/14/18 04:40 Carbon Dioxide 27 mmol/L (22-30) 08/14/18 04:40 Anion Gap 16 (10-20) 08/14/18 04:40 BUN 16 mg/dl (9-20) 08/14/18 04:40 Creatinine 0.7 mg/dl (0.8-1.5) L 08/14/18 04:40 Est GFR ( Amer) > 60 08/14/18 04:40 Est GFR (Non-Af Amer) > 60 08/14/18 04:40 POC Glucose (mg/dL) 132 mg/dL (65-110) H 08/14/18 17:04 Random Glucose 170 mg/dL (75-110) H 08/14/18 04:40 Calcium 9.1 mg/dL (8.4-10.2) 08/14/18 04:40 Phosphorus 3.1 mg/dl (2.5-4.5) 08/08/18 05:30 Magnesium 2.0 MG/DL (1.6-2.3) 08/08/18 05:30 Total Bilirubin 0.6 mg/dl (0.2-1.3) 08/14/18 04:40 AST 46 U/L (17-59) 08/14/18 04:40 ALT 70 U/L (21-72) 08/14/18 04:40 Alkaline Phosphatase 81 U/L (38-126) 08/14/18 04:40 Total Creatine Kinase 245 U/L (55-170) H 08/08/18 05:30 Troponin I < 0.0120 ng/mL (0.00-0.120) 08/07/18 11:15 Total Protein 6.8 G/DL (6.3-8.2) 08/14/18 04:40 Albumin 3.8 g/dL (3.5-5.0) 08/14/18 04:40 Globulin 3.0 gm/dL (2.2-3.9) 08/14/18 04:40 Albumin/Globulin Ratio 1.3 (1.0-2.1) 08/14/18 04:40 Venous Blood Potassium 4.2 mmol/L (3.6-5.2) 08/07/18 12:55 Blood Type A POSITIVE 08/09/18 18:30 Blood Type Confirm A POSITIVE 08/09/18 05:30 Antibody Screen Negative 08/09/18 18:30 BBK History Checked No verified bt 08/09/18 18:30 - Hospital Course Hospital Course: This is a 72 y/o male with hx of DM 2, OA HTn depression admitted for subdural hematoma after a fall at home. He was admitted to ICU and Neurosurgery evaluated the patient and performed evacuation of the hemorrhage. Patient tolerated well. He was noted to have tremors at the ICU and responded to low dose of Propranolol. Physical therapy was started and transferred to TCU for further rehab. Discharge Exam - Head Exam Head Exam: NORMAL INSPECTION - Eye Exam Eye Exam: Normal appearance - Respiratory Exam Respiratory Exam: Clear to PA & Lateral - Cardiovascular Exam Cardiovascular Exam: REGULAR RHYTHM - GI/Abdominal Exam GI & Abdominal Exam: Normal Bowel Sounds - Neurological Exam Neurological exam: CN II-XII Intact, Oriented x3 - Psychiatric Exam Psychiatric exam: Normal Mood Discharge Plan - Follow Up Plan Condition: FAIR Disposition: REHAB FACILITY/REHAB UNIT Additional Instructions: transferred to TCU for further PT
== END 2018-08-14 18:45 | DRG 27 ==
LOC: H.ER 10:08 → H.ERHOLD 13:46 → H.ICU/CCU 15:22
PROVIDERS: ADMIT Family Medicine; ATTEND Family Medicine
PROC: 009400Z Drainage of Intracranial Subdural Space with Drainage Device, Open Approach (ICD-10-PCS; 2018-08-10)
PROC: 00C40ZZ Extirpation of Matter from Intracranial Subdural Space, Open Approach (ICD-10-PCS; principal; 2018-08-10 12:00)
DX: S06.5X0A Traumatic subdural hemorrhage without loss of consciousness, initial encounter (principal); G25.0 Essential tremor; E86.0 Dehydration; F03.90 Unspecified dementia, unspecified severity, without behavioral disturbance, psychotic disturbance, mood disturbance, and anxiety; W01.0XXA Fall on same level from slipping, tripping and stumbling without subsequent striking against object, initial encounter; R26.89 Other abnormalities of gait and mobility; I10 Essential (primary) hypertension; E11.9 Type 2 diabetes mellitus without complications; E78.5 Hyperlipidemia, unspecified; E78.00 Pure hypercholesterolemia, unspecified; F32.9 Major depressive disorder, single episode, unspecified; M19.90 Unspecified osteoarthritis, unspecified site; Z79.84 Long term (current) use of oral hypoglycemic drugs; Z79.82 Long term (current) use of aspirin; Y92.009 Unspecified place in unspecified non-institutional (private) residence as the place of occurrence of the external cause

== ENCOUNTER 2018-08-14 16:50 | Inpatient (IN) | payer MEDICARE ==
[2018-08-14 18:47] VITALS: BMI 21.7
--- NOTE | 2018-08-14 19:02 | CP.PCM.CON ---
History of Present Illness - History of Present Illness History of Present Illness: Dr Cantor PMR consultation on Edgar Murphy, born 1945 who has been admitted to [facility] for acute inpatient rehabilitation following an admission with a SDH that necessitated evacuation. He had fallen and been on floor for 2 days, unab le to get up. Post op stable. Mild left UE and LE weakness Review of Systems - Constitutional Constitutional: absent: Anorexia - EENT Eyes: absent: Change in Vision Ears: absent: Ear Discharge, Ear Pain Nose/Mouth/Throat: absent: Nasal Congestion, Nasal Discharge - Cardiovascular Cardiovascular: absent: Chest Pain - Respiratory Respiratory: absent: Dyspnea - Gastrointestinal Gastrointestinal: absent: Abdominal Pain, Constipation, Fecal Incontinence - Musculoskeletal Musculoskeletal: absent: Back Pain - Integumentary Integumentary: absent: Bleeding Lesions - Neurological Neurological: Focal Weakness (left arm and leg). absent: Abnormal Movements, Dizziness - Psychiatric Psychiatric: absent: Anxiety Past Patient History - Past Social History Smoking Status: Never Smoked Alcohol: None Drugs: Denies Home Situation {Lives}: Alone (ambulates with a cane usually) - CARDIAC Hx Cardiac Disorders: Yes Hx Hypertension: Yes - ENDOCRINE/METABOLIC Hx Endocrine Disorders: Yes - MUSCULOSKELETAL/RHEUMATOLOGICAL Hx Falls: Yes - PSYCHIATRIC Hx Substance Use: No Meds Allergies/Adverse Reactions: Allergies Allergy/AdvReac Type Severity Reaction Status Date / Time No Known Allergies Allergy Verified 08/14/18 18:46 Physical Exam - Constitutional Appears: Non-toxic - Head Exam Head Exam: absent: NORMAL INSPECTION (laury on the right scalp) - Eye Exam Eye Exam: EOMI - ENT Exam ENT Exam: Mucous Membranes Moist - Respiratory Exam Respiratory Exam: NORMAL BREATHING PATTERN - Cardiovascular Exam Cardiovascular Exam: REGULAR RHYTHM - GI/Abdominal Exam GI & Abdominal Exam: Distended. absent: Firm - Extremities Exam Extremities exam: Negative for: calf tenderness - Neurological Exam Neurological exam: Alert, CN II-XII Intact, Oriented x3 - Psychiatric Exam Psychiatric exam: Normal Affect, Normal Mood - Skin Skin Exam: Warm (laury right scalp CDI) Assessment & Plan - Assessment and Plan (Free Text) Assessment: 72 year old male had a fall and SDH s/p craniotomy and evacuation mild left UE/LE weakness PT/OT to continue to help increase functional independence Team conference for d/c planning Pain: controlled Vascular: no evidence of DVT GI: No evidence of constipation or diarrhea Patient is an excellent acute rehabilitation candidate and will have focused Speech, PT, OT and recreational therapy to help facilitate a safe and appropriate d/c plan impairment code:01.1
--- NOTE | 2018-08-14 19:06 | PCM.OPOC ---
Physiatry Overall Plan of Care - Overall Plan of Care Estimated Length of Stay in Weeks: 3 Rehab Impairment: Mobility, Gait, Cognition, Balance, Coordination Etiologic Diagnosis: Cerebrovascular Accident Rehab/Medical Prognosis: Good - Anticipated Interventions Physical Therapy:: Yes Occupational Therapy:: Yes Speech Therapy:: Yes Recreational Therapy:: Yes - Therapy Goals Bed Mobility: Supervision Ambulation: Supervision Functional Positional Changes:: Supervision - Discharge Plan Identification of Barriers to Discharge: Home Situation Discharge Destination: Home
[2018-08-14] MEDS: Insulin Regular 100 units/ml SC SCH (21:49)
[2018-08-14] MEDS: POLYETHYLENE GLYCOL 3350 17 GM/Dose PACKET PO SCH (22:09)
[2018-08-15] MEDS: Insulin Regular 100 units/ml SC SCH ×4 (06:56→21:23)
--- NOTE | 2018-08-15 17:50 | CP.PCM.HP ---
History of Present Illness - History of Present Illness History of Present Illness: 72 yo male admitted recently due to subdural hematoma s/p fall at home. Evacuation of hematoma completed by neurosurgery. Patient is now admitted to acute rehab for further therapy. no complaints offered at this time feels well denies chest pain, sob, palpitations, headache. Present on Admission - Present on Admission Any Indicators Present on Admission: No Review of Systems - Review of Systems All systems: reviewed and no additional remarkable complaints except (mentioned above) Past Patient History - Past Medical History & Family History Past Medical History?: Yes Past Family History: Reviewed and not pertinent - Past Social History Smoking Status: Never Smoked - CARDIAC Hx Cardiac Disorders: Yes (cardiac arrythmias) Hx Hypercholesterolemia: Yes - NEUROLOGICAL HX Cerebrovascular Accident: Yes - RENAL Other/Comment: Azotemia - ENDOCRINE/METABOLIC Hx Diabetes Mellitus Type 2: Yes - MUSCULOSKELETAL/RHEUMATOLOGICAL Hx Arthritis: Yes (OA) - PSYCHIATRIC Hx Psychophysiologic Disorder: Yes Hx Depression: Yes Hx Substance Use: No - ANESTHESIA Hx Anesthesia: Yes Hx Anesthesia Reactions: No Hx Malignant Hyperthermia: No Has any member of the family had a problem w/ anesthesia?: No Meds Allergies/Adverse Reactions: Allergies Allergy/AdvReac Type Severity Reaction Status Date / Time No Known Allergies Allergy Verified 08/14/18 18:46 Physical Exam - Constitutional Appears: Non-toxic - Head Exam Additional comments: incision/surgical site on right temporal area of the head with lauyr, c/d/i. - Respiratory Exam Respiratory Exam: NORMAL BREATHING PATTERN - Cardiovascular Exam Cardiovascular Exam: +S1, +S2 - GI/Abdominal Exam GI & Abdominal Exam: Soft - Neurological Exam Neurological exam: Alert - Psychiatric Exam Psychiatric exam: Normal Affect, Normal Mood - Skin Skin Exam: Normal Color, Warm Results - Vital Signs Recent Vital Signs: Last Vital Signs Temp 98.2 F 08/15/18 07:30 Pulse 75 08/15/18 17:24 Resp 20 08/15/18 07:30 BP 128/60 08/15/18 17:24 Pulse Ox 95 08/15/18 09:41 - Labs Labs: Laboratory Results - last 24 hr 08/14/18 08/15/18 08/15/18 21:27 05:40 11:39 POC Glucose (mg/dL) 124 H 146 H 224 H 08/15/18 16:45 POC Glucose (mg/dL) 187 H Assessment & Plan (1) Subdural hematoma Status: Acute (2) Fall Status: Acute - Assessment and Plan (Free Text) Assessment: cont therapy cont meds dr beltre consulted, appreciate recommendations monitor vitals rest of plan as ordered
[2018-08-15] MEDS: POLYETHYLENE GLYCOL 3350 17 GM/Dose PACKET PO SCH (21:24)
[2018-08-16 06:57] LABS: HEMOGLOBIN 13.9 g/dL (12.0-18.0); MEAN CELL VOLUME 92.4 fl (80.0-94.0); MEAN CORPUSCULAR HEMOGLOBIN 31.3 pg (27.0-31.0); MEAN CORPUSCULAR HGB CONC 33.9 g/dL (33.0-37.0); RBC 4.44 Mil/uL (4.40-5.90); RED CELL DISTRIBUTION WIDTH 13.7 % (11.5-14.5); WHITE BLOOD COUNT 6.5 K/uL (4.8-10.8)
[2018-08-16 06:59] LABS: INR 1.1; PROTHROMBIN TIME 12.8 Seconds (9.8-13.1)
[2018-08-16 07:41] LABS: ALB/GLOB RATIO 0.9 (1.0-2.1); ALBUMIN 3.4 g/dL (3.5-5.0); ALT/SGPT 93 U/L (21-72); AST/SGOT 59 U/L (17-59); BLOOD UREA NITROGEN 14 mg/dl (9-20); CALCIUM 9.2 mg/dL (8.4-10.2); GFR NON-AFRICAN AMERICAN > 60
[2018-08-16] MEDS: Insulin Regular 100 units/ml SC SCH ×4 (07:51→21:51)
[2018-08-16] MEDS: POLYETHYLENE GLYCOL 3350 17 GM/Dose PACKET PO SCH (21:49)
[2018-08-17] MEDS: Insulin Regular 100 units/ml SC SCH ×4 (07:39→21:16)
--- NOTE | 2018-08-17 15:49 | CP.PCM.PN ---
Subjective - Date & Time of Evaluation Date of Evaluation: 08/17/18 Time of Evaluation: 10:00 - Subjective Subjective: patient seen and examined at bedside. Interim events noted No complaints offered at this time. denies cp/sob/fever/chills. available diagnostic data reviewed Review of Systems All systems: reviewed and no additional remarkable complaints except mentioned above Objective Vital Signs Stable - Constitutional Appears: Non-toxic, No Acute Distress Head Exam: NORMAL INSPECTION, laury of right head c/d/i Eye Exam: Normal appearance Respiratory Exam: NORMAL BREATHING PATTERN Cardiovascular Exam: +S1, +S2 GI & Abdominal Exam: Soft Neurological Exam: Alert, Awake Psychiatric exam: Normal Affect, Normal Mood Skin Exam: Normal Color, Warm Assessment and Plan monitor vitals monitor labs Cont meds Cont therapy rest of plan as ordered Assessment and Plan (1) Subdural hematoma Status: Acute (2) Fall Status: Acute
--- NOTE | 2018-08-17 17:47 | CP.PCM.PN ---
Subjective - Date & Time of Evaluation Date of Evaluation: 08/17/18 Time of Evaluation: 17:47 - Subjective Subjective: Patient seen in the room doing ok denies sob/cp denies fever laury CDI continue current care Objective - Vital Signs/Intake and Output Vital Signs (last 24 hours): Temp Pulse Resp BP Pulse Ox 97.7 F 67 18 112/64 95 08/17/18 07:40 08/17/18 16:54 08/17/18 07:40 08/17/18 16:54 08/17/18 14:17 - Medications Medications: Current Medications Acetaminophen (Tylenol 325mg Tab) 650 mg PO Q4 PRN PRN Reason: pain scale (1-7) Acetaminophen (Tylenol 325mg Tab) 650 mg PO Q6 PRN PRN Reason: Headache Atorvastatin Calcium (Lipitor) 20 mg PO DAILY [facility] Last Admin: 08/17/18 08:19 Dose: 20 mg Cyanocobalamin (Vitamin B12 1000 Mcg Tab) 1,000 mcg PO DAILY [facility] Last Admin: 08/17/18 08:18 Dose: 1,000 mcg Insulin Human Regular (Humulin R) 0 units SC [facility]; Protocol Last Admin: 08/17/18 16:54 Dose: 4 units Polyethylene Glycol (Miralax) 17 gm PO HS [facility] Last Admin: 08/16/18 21:49 Dose: 17 gm Propranolol HCl (Inderal) 10 mg PO TID [facility] Last Admin: 08/17/18 16:54 Dose: 10 mg Ramipril (Altace) 2.5 mg PO DAILY [facility] Last Admin: 08/17/18 08:19 Dose: 2.5 mg Sertraline HCl (Zoloft) 100 mg PO DAILY [facility] Last Admin: 08/17/18 08:19 Dose: 100 mg - Labs Labs: 08/16/18 05:30 08/16/18 05:30 PT 12.8 Seconds (9.8-13.1) 08/16/18 05:30 INR 1.1 08/16/18 05:30
[2018-08-17] MEDS: POLYETHYLENE GLYCOL 3350 17 GM/Dose PACKET PO SCH (21:16)
[2018-08-18] MEDS: Insulin Regular 100 units/ml SC SCH ×4 (07:03→21:09)
--- NOTE | 2018-08-18 13:14 | PCM.PSYTMC ---
Acute Rehab Team Conference - - Vital Signs: Vital Signs (Last 8 Hours): Vital Signs 08/18/18 08/18/18 08/18/18 07:34 08:40 08:41 Temperature 96.8 F L Pulse Rate 65 69 Respiratory 20 Rate Blood Pressure 101/67 122/65 122/65 O2 Sat by Pulse 96 Oximetry 08/18/18 08/18/18 09:00 12:34 Temperature 96.8 F L Pulse Rate 65 64 Respiratory 20 Rate Blood Pressure 122/65 117/60 O2 Sat by Pulse Oximetry Pain: 0 - Precautions: Precautions: Fall Prevention, Aspiration - Medications/Other Issues: Comment: with periods of incontinent denies any pain - Consults: Comment: Dr Cantor - Skin: Incision Site: Rt Prontoparietal area Dressing Status: Clean, Dry, Intact Incision: Darrow Intact Incision Line Treatment: cleanse with ns open to air daily - Toileting: Toileting: Maximal Assistance - Bladder Management: Bladder Pattern: Normal, Incontinent Voiding Method: Urinal, Diaper Bladder Management: Moderate Assistance - Transfers: Transfers: Moderate Assistance - ADL's: ADL's: Moderate Assistance - Pain Management: Other Intervention:: tylenol for pain - Patient/Family Teaching: Other Intervention:: incisional line care ,medication teachings safety fall precautions - Goals/Time Frame: Comment: as per multidiciplinary plan of care - Provider: Registered Nurse:: Gela Kraus Physical Therapy - Bed Mobility Bed Mobility: Verbal Cues, Moderate Assistance Comment: bed mob log rolling method. mod vc/tc and PT demo needed for pt to performed tasks due to cog impairment (difficulty following commands even w/ use of pipe bowl paint trimmer.) - Transfers Wheelchair to Mat: Verbal Cues, Maximum Assistance Sit to Stand: Verbal Cues, Moderate Assistance, Maximum Assistance Comment: Incr'd extensor tone at trunk and B hips tends to incr during sit to stand t/f. mod vc/tc and PT demo needed for pt to performed tasks due to cog impairment (difficulty following commands even w/ use of pipe bowl paint trimmer.). difficulty advancing LUE during all t/f, assist needed; max vc/tc to keep R hand on support surface not RW during sit to stand t/f. Improved scooting in bed noted when pt assisted into bridge position. (min A). Greater difficulty noted w/ scooting backwards in w/c (mod A/max A). Improvement noted w/ leg rest donned (min A). Pt tends to lean posteriorly upon standing. He is aware of this, but is unable to correct w/o assist - Ambulation Level of Assistance: Verbal Cues, Moderate Assistance Distance (ft.): 115 Assistive Devices: Rolling Walker Comment: x3 w/ w/c follow. Pt w/ posterior lean during task, improved as task progressed. varying JOSE LUIS (primarily wide), initial contact B foot flat, less difficulty advancing LLE today, incr'd lateral sway, decr'd stance time LLE, difficulty obtaining full L knee ext during mid stance, decr'd B step/stride length (but improved), unsteady gait, impaired coordination noted; unsteady w/ turns and obstacles. step length and fluidity of gait improved as task progressed - Stair Negotiation Stairs: Level of Assistance: Verbal Cues, Maximum Assistance Number of Stairs: 3 Stairs: Assistive Devices: Left Handrail, Right Handrail Comment: 4 in steps w/ mod/max A x 1 and SBA x1, step to pattern. max A needed to wt shift onto R side during LLE advancement, martha during asc; assist needed to advance LLE at times, martha during asc. Pt w/ very narrow JOSE LUIS, mod A needed for wt shift and to advance RLE to improve JOSE LUIS. 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 Pt displays significant cog impairments and neuroms deficits. Pt currently requires mod/max assist for all fxnl mob and ambulatory activities. Cont'd skilled acute rehab PT recommended. Extended acute rehab stay recommended to maximize fxnl outcomes. - Goals Timeframe: 4 weeks Goals: mod I 150' w/c prop. 1 flight 8 in steps R HR CS, step to pattern. RW 300' DS. sit to stand DS. SPT DS. bed mob mod I - Provider Physical Therapist:: Lourdes Vang License Number:: [id number] Occupational Therapy - Arousal/Attention/Orientation Level of Consciousness: Awake, Alert, Forgetful, Disoriented Patient Orientation: Person, Place, Time, Appropriate to Age, Appropriate to Situation, Disoriented Assessment Comment: varies - ADL/IADL Self Feeding: Supervision, Verbal Cues, Set-up Help Grooming: Verbal Cues, Set-up Help, Minimal Assistance Dressing-Upper Ext: Verbal Cues, Set-up Help, Moderate Assistance Dressing-Lower Ext: Verbal Cues, Set-up Help, Maximum Assistance - Sitting Balance Static Sitting: Minimal Assistance Dynamic Sitting: Reaches across midline, Reaches out of base of support, Reaches within base of support, Requires supervision, Minimal Assistance, Moderate Darby tance - Transfers Wheelchair to Bed Transfers: Verbal Cues, Set-up Help, Moderate Assistance Toilet Transfers: Verbal Cues, Set-up Help, Minimal Assistance, Moderate Assistance - Upper Extremity Status Right Upper Extremity Comment: AROM is WFLS Left Upper Extremity Comment: AROM is WFLS, strength 3+/% --poor sensation/proprioception - Pain Pain (assessed during therapy session): 0 - Insight/Carryover Insight/Carryover: Fair - Patient/Family Education Comment: -initiated for adl, transfer/mobility training using compensatory strategies--further training needed to increase carryover. -LUE AROM activities. -postural control--sitting/standing. -rehab/OT goals, plan of care. -toileting program. -safety measures, fall prevention: bed and w/c sea tbelt alarm - Assessment/Plan Assessment: Pt is a 72 year old R handed Serbian speaking with dx: subdural hematoma. *Precautions: falls, impaired cognition, L sided weakness, impaired proprioception/body awareness, impaired sensation/proprioception LUE, w/c and bed alarms. Pt limited by the following impairments: -impaired cognition- memory, insight. -impaired standing/sitting balance & tolerance. -impaired activity tolerance. -impaired safety awareness. -impaired proprioception LUE/body. -impaired AROM/strength in LUE/LLE and trunk. -impaired postural control--which impact on self care, transfers/mobility and Iadls. Pt will continue skilled Occupational Therapy to address above areas to maximize function in self care using adaptive/comepnsatory strategies. Pt will benefit from toileting program to minimize bouts of incontinence. *Goal: / Supervision for adls/transfers/mobility or JANNETH pending progress - Goals Timeframe: 8 days Comment: -FEEDING: Supervision/setup. -GROOMING: Supervision/setup verbal cues. -UPPER BODY DRESSING: Min assist and verbal cues mauricio-techniques. -LOWER BODY DRESSING: mod assist and verbal cues mauricio-technies. -TOILETING: min assist and verbal cues. -TRANSFERS:<->bed, commode, w/c and other surfaces with Min assist and verbal cues. -LUE STRENGTH/AWARENESS: increase to 4-/5 & awareness as needed to complete adls. -W/C MANAGEMENT: min assist & verbal cues to manage brakes, propel w/c 50-75 feet - Provider Occupational Therapist:: Suri Valera License Number: [id number] Speech Therapy - Consult Information Patient on Program: Yes Medical Diagnosis: R SDH Treatment Diagnosis: moderate cognitive-linguistic deficits - Assessment Problem Solving Impairment: Moderate Memory Impairment: Moderate - Plan Assessment: Edgar Murphy presents with moderate cognitive-linguistic deficits characterized by impaired orientation, immediate and short-term recall, problem solving, reasoning, sequencing, thought organization, and insight all negatively impacting pt's safety and functional independence. Pt lived alone prior to admission to the hospital. He would benefit from skilled speech tx for improved cognitive skills, safety, and functional independence. 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 Plan: Continue Speech/Language Therapy Frequency: 3-5 times per week Duration: 1 week Goals/Timeframe: Please see IE completed 08/17/18 for complete goals/POC Recommendations: ST 3-5x/week for improved cognition and functional independence - Provider Therapist: Ni Padilla License Number: [id number] Recreational Therapy - Participation Participation: Participates in Individual and/or Group Sessions, Monitors His/Her Own Leisure Time - Activities Leisure Activities: Television - Socialization Level of Socialization: Initiates/interacts freely with care givers and peer - Assessment Assessment/Plan: Pt was oriented to the benefits and purpose of participating in recreation therapy sessions offered throughout stay on unit. Pt expressed i nterest in participating in leisure tasks related to improving UE strength and fine motor skills. Pt will be encouraged to participate in sessions throughout stay on unit. Problems Currently Limiting Participation: L UE weakness, impaired problem solving, decrease leisure awareness level Goals and Time Frame: Pt will tolerate 20 minutes of completing tabletop leisure task utilizing both hands to improve leisure awareness level and strength in UE by date of discharge. - Provider Therapist: Adrianne Ybarra Nutrition - Current Diet Current Diet/Supplement/Feedings: Moderate consistent CHO heart healthy diet - Appetite Percent Meal Consumed: 50-74% - Assessment/Goals/Time Frame Assessments/Goals/Time Frame: Pt at moderate nutritional risk. goals: 1. Improve PO intake to greater than 75% at mealtime. 2. Maintain good glycemic control:GLU:140-180mg/dl. 3. Monitor need for PO supplement at next nutrition reassessment. Follow-up due on 08/23/2018 - Provider Provider: Yasmin Garcia Case Management - Psychosocial Assessment Support Systems: Edgar Murphy ([facility]) - [phone] Psychological Interventions/Needs: Patient is AAO with some forgetfulness and confusion. Baseline for pt's memory to be confirmed with family. Discharge Concerns: Patient lives alone in an apartment building with elevator access. Patient/Family Meeting: CM met with patient and rehab team. Intervention/Goal/Outcome: 1. Goal: Supervision? 2. Plan: home with VNS and family support vs JANNETH 3. DME needs 4. f/u appts 5. continued emotional support - Discharge Plan Discharge Plan: Home with services Home Services: [facility] [employer] services? - Provider Provider: Luz Maria Perez License Number: [id number] Rehabilitation Plan - Treatment Plan Treatment Plan: Physical Therapy, Occupational Therapy, Speech, Dietary, Patient/Family Education - Discharge Plan Estimated Date of Discharge: 09/01/18 Discharge to: Subacute
--- NOTE | 2018-08-18 13:50 | CP.PCM.PN ---
Subjective - Date & Time of Evaluation Date of Evaluation: 08/18/18 Time of Evaluation: 13:48 - Subjective Subjective: denie sob/cp denies BARNEY or dizziness notes that he is not able to take care of himself safely at home at this point Objective - Vital Signs/Intake and Output Vital Signs (last 24 hours): Temp Pulse Resp BP Pulse Ox 96.8 F L 64 20 117/60 96 08/18/18 09:00 08/18/18 12:34 08/18/18 09:00 08/18/18 12:34 08/18/18 07:34 - Medications Medications: Current Medications Acetaminophen (Tylenol 325mg Tab) 650 mg PO Q6 PRN PRN Reason: Headache Acetaminophen (Tylenol 325mg Tab) 650 mg PO Q4 PRN PRN Reason: Pain scale 1-10. Atorvastatin Calcium (Lipitor) 20 mg PO DAILY [facility] Last Admin: 08/18/18 08:42 Dose: 20 mg Cyanocobalamin (Vitamin B12 1000 Mcg Tab) 1,000 mcg PO DAILY [facility] Last Admin: 08/18/18 08:42 Dose: 1,000 mcg Insulin Human Regular (Humulin R) 0 units SC [facility]; Protocol Last Admin: 08/18/18 12:27 Dose: 3 units Polyethylene Glycol (Miralax) 17 gm PO HS [facility] Last Admin: 08/17/18 21:16 Dose: 17 gm Propranolol HCl (Inderal) 10 mg PO TID [facility] Last Admin: 08/18/18 12:34 Dose: 10 mg Ramipril (Altace) 2.5 mg PO DAILY [facility] Last Admin: 08/18/18 08:40 Dose: 2.5 mg Sertraline HCl (Zoloft) 100 mg PO DAILY [facility] Last Admin: 08/18/18 08:41 Dose: 100 mg - Labs Labs: 08/16/18 05:30 08/16/18 05:30 PT 12.8 Seconds (9.8-13.1) 08/16/18 05:30 INR 1.1 08/16/18 05:30 - Constitutional Appears: Non-toxic, No Acute Distress - Head Exam Head Exam: absent: ATRAUMATIC (has right scalp laury in place) - ENT Exam ENT Exam: Mucous Membranes Moist - Respiratory Exam Respiratory Exam: NORMAL BREATHING PATTERN - GI/Abdominal Exam GI & Abdominal Exam: absent: Distended - Extremities Exam Extremities Exam: absent: Pedal Edema - Neurological Exam Neurological Exam: Alert, CN II-XII Intact - Psychiatric Exam Psychiatric exam: Normal Affect, Normal Mood Assessment and Plan - Assessment and Plan (Free Text) Assessment: 72 year old with fall and SDH s/p craniotomy stable but not yet safe to d/c home PT/OT to continue to help increase functional independence Team conference for d/c planning. planned d/c to [facility] unless makes exceptional strides in the next week Pain: controlled Vascular: no evidence of DVT GI: No evidence of constipation or diarrhea Patient is an excellent acute rehabilitation candidate and will have focused pain management, wound care, PT, OT and recreational therapy to help facilitate a safe and appropriate d/c plan
--- NOTE | 2018-08-18 18:34 | CP.PCM.PN ---
Subjective - Date & Time of Evaluation Date of Evaluation: 08/18/18 Time of Evaluation: 11:00 - Subjective Subjective: Patient is doing well with Phys therapy. Has no chest pain or SOB. No headaches Objective - Vital Signs/Intake and Output Vital Signs (last 24 hours): Temp Pulse Resp BP Pulse Ox 96.8 F L 66 20 112/64 97 08/18/18 09:00 08/18/18 17:19 08/18/18 09:00 08/18/18 17:19 08/18/18 08:58 - Medications Medications: Current Medications Acetaminophen (Tylenol 325mg Tab) 650 mg PO Q6 PRN PRN Reason: Headache Acetaminophen (Tylenol 325mg Tab) 650 mg PO Q4 PRN PRN Reason: Pain scale 1-10. Atorvastatin Calcium (Lipitor) 20 mg PO DAILY [facility] Last Admin: 08/18/18 08:42 Dose: 20 mg Cyanocobalamin (Vitamin B12 1000 Mcg Tab) 1,000 mcg PO DAILY [facility] Last Admin: 08/18/18 08:42 Dose: 1,000 mcg Insulin Human Regular (Humulin R) 0 units SC [facility]; Protocol Last Admin: 08/18/18 17:19 Dose: Not Given Polyethylene Glycol (Miralax) 17 gm PO HS [facility] Last Admin: 08/17/18 21:16 Dose: 17 gm Propranolol HCl (Inderal) 10 mg PO TID [facility] Last Admin: 08/18/18 17:19 Dose: 10 mg Ramipril (Altace) 2.5 mg PO DAILY [facility] Last Admin: 08/18/18 08:40 Dose: 2.5 mg Sertraline HCl (Zoloft) 100 mg PO DAILY [facility] Last Admin: 08/18/18 08:41 Dose: 100 mg - Labs Labs: 08/16/18 05:30 08/16/18 05:30 PT 12.8 Seconds (9.8-13.1) 08/16/18 05:30 INR 1.1 08/16/18 05:30 - Head Exam Head Exam: NORMAL INSPECTION - Eye Exam Eye Exam: Normal appearance - ENT Exam ENT Exam: Mucous Membranes Moist - Respiratory Exam Respiratory Exam: Clear to Ausculation Bilateral - Cardiovascular Exam Cardiovascular Exam: REGULAR RHYTHM - GI/Abdominal Exam GI & Abdominal Exam: Normal Bowel Sounds - Neurological Exam Neurological Exam: Awake, Oriented x3 - Psychiatric Exam Psychiatric exam: Normal Mood Assessment and Plan (1) Diabetes mellitus type 2 in nonobese Status: Acute (2) Essential tremor Status: Acute (3) Hypertension Status: Acute (4) Subdural hematoma Status: Acute - Assessment and Plan (Free Text) Plan: Cont meds Cont tx Cont PT will remove laury at 14th day post op
[2018-08-18] MEDS: POLYETHYLENE GLYCOL 3350 17 GM/Dose PACKET PO SCH (21:09)
[2018-08-19] MEDS: Insulin Regular 100 units/ml SC SCH ×4 (06:58→21:13)
--- NOTE | 2018-08-19 19:23 | CP.PCM.PN ---
Subjective - Date & Time of Evaluation Date of Evaluation: 08/19/18 Time of Evaluation: 19:23 - Subjective Subjective: Patient seen in the room doing ok denies pain or BARNEY no dizziness continue current care laury CDI Objective - Vital Signs/Intake and Output Vital Signs (last 24 hours): Temp Pulse Resp BP Pulse Ox 98.1 F 63 21 112/58 L 97 08/19/18 08:03 08/19/18 16:32 08/19/18 08:03 08/19/18 16:32 08/19/18 08:39 - Medications Medications: Current Medications Acetaminophen (Tylenol 325mg Tab) 650 mg PO Q6 PRN PRN Reason: Headache Acetaminophen (Tylenol 325mg Tab) 650 mg PO Q4 PRN PRN Reason: Pain scale 1-10. Atorvastatin Calcium (Lipitor) 20 mg PO DAILY [facility] Last Admin: 08/19/18 09:05 Dose: 20 mg Cyanocobalamin (Vitamin B12 1000 Mcg Tab) 1,000 mcg PO DAILY [facility] Last Admin: 08/19/18 09:05 Dose: 1,000 mcg Insulin Human Regular (Humulin R) 0 units SC [facility]; Protocol Last Admin: 08/19/18 16:13 Dose: Not Given Polyethylene Glycol (Miralax) 17 gm PO HS [facility] Last Admin: 08/18/18 21:09 Dose: 17 gm Propranolol HCl (Inderal) 10 mg PO TID [facility] Last Admin: 08/19/18 16:32 Dose: 10 mg Ramipril (Altace) 2.5 mg PO DAILY [facility] Last Admin: 08/19/18 09:04 Dose: 2.5 mg Sertraline HCl (Zoloft) 100 mg PO DAILY [facility] Last Admin: 08/19/18 09:05 Dose: 100 mg - Labs Labs: 08/16/18 05:30 08/16/18 05:30 PT 12.8 Seconds (9.8-13.1) 08/16/18 05:30 INR 1.1 08/16/18 05:30
[2018-08-19] MEDS: POLYETHYLENE GLYCOL 3350 17 GM/Dose PACKET PO SCH (21:11)
[2018-08-20] MEDS: Insulin Regular 100 units/ml SC SCH ×4 (07:11→21:07)
--- NOTE | 2018-08-20 18:16 | CP.PCM.PN ---
Subjective - Date & Time of Evaluation Date of Evaluation: 08/20/18 Time of Evaluation: 10:00 - Subjective Subjective: patient seen and examined at bedside. Interim events noted No complaints offered at this time denies cp/sob/fever/chills. available diagnostic data reviewed Review of Systems All systems: reviewed and no additional remarkable complaints except mentioned above Objective Vital Signs Stable - Constitutional Appears: Non-toxic, No Acute Distress Head Exam: NORMAL INSPECTION, laury of right scalp, c/d/i Eye Exam: Normal appearance Respiratory Exam: NORMAL BREATHING PATTERN Cardiovascular Exam: +S1, +S2 GI & Abdominal Exam: Soft Neurological Exam: Alert, Awake Psychiatric exam: Normal Affect, Normal Mood Skin Exam: Normal Color, Warm Assessment and Plan monitor vitals monitor labs Cont meds Cont therapy consultants appreciated input rest of plan as ordered Assessment and Plan (1) Subdural hematoma Status: Acute (2) Fall Status: Acute
[2018-08-20] MEDS: POLYETHYLENE GLYCOL 3350 17 GM/Dose PACKET PO SCH (21:07)
[2018-08-21] MEDS: Insulin Regular 100 units/ml SC SCH ×4 (06:49→23:43)
--- NOTE | 2018-08-21 17:59 | CP.PCM.PN ---
Subjective - Date & Time of Evaluation Date of Evaluation: 08/21/18 Time of Evaluation: 17:58 - Subjective Subjective: Patient seen in the room comfortable laury CDI has some scabbing and to prepare d/c of laury next week will have the staff clean and rub the scabs off to allow for better approximation Objective - Vital Signs/Intake and Output Vital Signs (last 24 hours): Temp Pulse Resp BP Pulse Ox 97.6 F 62 19 113/62 99 08/21/18 10:00 08/21/18 17:08 08/21/18 10:00 08/21/18 17:08 08/21/18 10:00 - Medications Medications: Current Medications Acetaminophen (Tylenol 325mg Tab) 650 mg PO Q6 PRN PRN Reason: Headache Acetaminophen (Tylenol 325mg Tab) 650 mg PO Q4 PRN PRN Reason: Pain scale 1-10. Atorvastatin Calcium (Lipitor) 20 mg PO DAILY [facility] Last Admin: 08/21/18 09:02 Dose: 20 mg Cyanocobalamin (Vitamin B12 1000 Mcg Tab) 1,000 mcg PO DAILY [facility] Last Admin: 08/21/18 09:02 Dose: 1,000 mcg Insulin Human Regular (Humulin R) 0 units SC [facility]; Protocol Last Admin: 08/21/18 16:58 Dose: Not Given Polyethylene Glycol (Miralax) 17 gm PO HS [facility] Last Admin: 08/20/18 21:07 Dose: 17 gm Propranolol HCl (Inderal) 10 mg PO TID [facility] Last Admin: 08/21/18 17:08 Dose: 10 mg Ramipril (Altace) 2.5 mg PO DAILY [facility] Last Admin: 08/21/18 09:03 Dose: 2.5 mg Sertraline HCl (Zoloft) 100 mg PO DAILY [facility] Last Admin: 08/21/18 09:01 Dose: 100 mg - Labs Labs: 08/16/18 05:30 08/16/18 05:30 PT 12.8 Seconds (9.8-13.1) 08/16/18 05:30 INR 1.1 08/16/18 05:30
[2018-08-21] MEDS: POLYETHYLENE GLYCOL 3350 17 GM/Dose PACKET PO SCH (21:07)
[2018-08-22] MEDS: Insulin Regular 100 units/ml SC SCH ×4 (06:57→21:52)
[2018-08-22] MEDS: POLYETHYLENE GLYCOL 3350 17 GM/Dose PACKET PO SCH (22:02)
[2018-08-23] MEDS: Insulin Regular 100 units/ml SC SCH ×4 (07:33→21:29)
[2018-08-23] MEDS: POLYETHYLENE GLYCOL 3350 17 GM/Dose PACKET PO SCH (21:29)
--- NOTE | 2018-08-24 03:08 | CP.PCM.PN ---
Subjective - Date & Time of Evaluation Date of Evaluation: 08/19/18 Time of Evaluation: 08:45 - Subjective Subjective: Pt seen and assessed at bedside. [place] on head s/p hematoma evac are clean, with no signs of infection. Strength improving. Resting left arm tremor noted; pt on inderal. Review of Systems - Review of Systems All systems: reviewed and no additional remarkable complaints except (tremor Left upper extremity.) Objective - Vital Signs/Intake and Output Vital Signs (last 24 hours): Temp Pulse Resp BP Pulse Ox 98.6 F 66 20 118/69 96 08/23/18 20:25 08/23/18 20:25 08/23/18 20:25 08/23/18 20:25 08/23/18 20:25 - Medications Medications: Current Medications Acetaminophen (Tylenol 325mg Tab) 650 mg PO Q6 PRN PRN Reason: Headache Acetaminophen (Tylenol 325mg Tab) 650 mg PO Q4 PRN PRN Reason: Pain scale 1-10. Atorvastatin Calcium (Lipitor) 20 mg PO DAILY [facility] Last Admin: 08/23/18 08:38 Dose: 20 mg Cyanocobalamin (Vitamin B12 1000 Mcg Tab) 1,000 mcg PO DAILY [facility] Last Admin: 08/23/18 08:38 Dose: 1,000 mcg Insulin Human Regular (Humulin R) 0 units SC [facility]; Protocol Last Admin: 08/23/18 21:29 Dose: Not Given Polyethylene Glycol (Miralax) 17 gm PO HS [facility] Last Admin: 08/23/18 21:29 Dose: 17 gm Propranolol HCl (Inderal) 10 mg PO TID [facility] Last Admin: 08/23/18 16:33 Dose: 10 mg Ramipril (Altace) 2.5 mg PO DAILY [facility] Last Admin: 08/23/18 08:37 Dose: 2.5 mg Sertraline HCl (Zoloft) 100 mg PO DAILY [facility] Last Admin: 08/23/18 08:38 Dose: 100 mg - Labs Labs: 08/16/18 05:30 08/16/18 05:30 PT 12.8 Seconds (9.8-13.1) 08/16/18 05:30 INR 1.1 08/16/18 05:30 - Head Exam Head Exam: NORMOCEPHALIC Additional comments: laury to the top of the head, toward the right side. Site is clean, dry, and intact. - Eye Exam Eye Exam: EOMI, Normal appearance, PERRL Pupil Exam: NORMAL ACCOMODATION, PERRL - ENT Exam ENT Exam: Mucous Membranes Moist - Neck Exam Neck Exam: Normal Inspection - Respiratory Exam Respiratory Exam: Clear to Ausculation Bilateral - Cardiovascular Exam Cardiovascular Exam: REGULAR RHYTHM, +S1, +S2 - GI/Abdominal Exam GI & Abdominal Exam: Soft, Normal Bowel Sounds - Extremities Exam Extremities Exam: Normal Capillary Refill Additional comments: mild left sided weakness. - Back Exam Back Exam: NORMAL INSPECTION - Neurological Exam Neurological Exam: Alert, Awake Neuro motor strength exam: Left Upper Extremity: 4, Right Upper Extremity: 5, Left Lower Extremity: 4, Right Lower Extremity: 5 - Psychiatric Exam Psychiatric exam: Normal Affect, Normal Mood - Skin Skin Exam: Dry, Normal Color, Warm Assessment and Plan (1) Subdural hematoma Assessment & Plan: 1.) Subdural Hematoma -strength improving; mild Left sided weakness noted. -continue physical therapy/rehab. -safety and fall precautions. -left arm tremor noted, pt being treated with inderal. -consults input appreciated. -continue current tx. -head laury to be removed within 14 days post-op. Status: Acute
[2018-08-24] MEDS: Insulin Regular 100 units/ml SC SCH ×4 (07:23→21:18)
--- NOTE | 2018-08-24 11:18 | CP.PCM.PN ---
Subjective - Date & Time of Evaluation Date of Evaluation: 08/21/18 Time of Evaluation: 10:00 - Subjective Subjective: Patient is doign well with PT Has no chest pain or SOB Afebrile Has no headaches Objective - Vital Signs/Intake and Output Vital Signs (last 24 hours): Temp Pulse Resp BP Pulse Ox 98.6 F 65 21 135/73 96 08/24/18 07:57 08/24/18 08:52 08/24/18 07:57 08/24/18 08:52 08/24/18 07:57 - Medications Medications: Current Medications Acetaminophen (Tylenol 325mg Tab) 650 mg PO Q6 PRN PRN Reason: Headache Acetaminophen (Tylenol 325mg Tab) 650 mg PO Q4 PRN PRN Reason: Pain scale 1-10. Atorvastatin Calcium (Lipitor) 20 mg PO DAILY [facility] Last Admin: 08/24/18 08:53 Dose: 20 mg Cyanocobalamin (Vitamin B12 1000 Mcg Tab) 1,000 mcg PO DAILY [facility] Last Admin: 08/24/18 08:53 Dose: 1,000 mcg Insulin Human Regular (Humulin R) 0 units SC [facility]; Protocol Last Admin: 08/24/18 07:23 Dose: Not Given Polyethylene Glycol (Miralax) 17 gm PO HS [facility] Last Admin: 08/23/18 21:29 Dose: 17 gm Propranolol HCl (Inderal) 10 mg PO TID [facility] Last Admin: 08/24/18 08:52 Dose: 10 mg Ramipril (Altace) 2.5 mg PO DAILY [facility] Last Admin: 08/24/18 08:52 Dose: 2.5 mg Sertraline HCl (Zoloft) 100 mg PO DAILY [facility] Last Admin: 08/24/18 08:53 Dose: 100 mg - Labs Labs: 08/16/18 05:30 08/16/18 05:30 PT 12.8 Seconds (9.8-13.1) 08/16/18 05:30 INR 1.1 08/16/18 05:30 - Head Exam Head Exam: NORMAL INSPECTION - Eye Exam Eye Exam: Normal appearance - ENT Exam ENT Exam: Mucous Membranes Moist - Respiratory Exam Respiratory Exam: Clear to Ausculation Bilateral - Cardiovascular Exam Cardiovascular Exam: REGULAR RHYTHM - GI/Abdominal Exam GI & Abdominal Exam: Soft Assessment and Plan (1) Diabetes mellitus type 2 in nonobese Status: Acute (2) Essential tremor Status: Acute (3) Hypertension Status: Acute (4) Subdural hematoma Status: Acute - Assessment and Plan (Free Text) Plan: Cont meds Cont tx Cont PT
--- NOTE | 2018-08-24 13:03 | CP.PCM.PN ---
Subjective - Date & Time of Evaluation Date of Evaluation: 08/16/18 Time of Evaluation: 11:00 - Subjective Subjective: patient is doing well with Phys therapy Has no chest pain or SOB Afebrile Has no headaches Accuchecks are better. has less tremors with propranolol. Objective - Vital Signs/Intake and Output Vital Signs (last 24 hours): Temp Pulse Resp BP Pulse Ox 98.6 F 68 21 108/57 L 96 08/24/18 07:57 08/24/18 12:25 08/24/18 07:57 08/24/18 12:25 08/24/18 07:57 - Medications Medications: Current Medications Acetaminophen (Tylenol 325mg Tab) 650 mg PO Q6 PRN PRN Reason: Headache Acetaminophen (Tylenol 325mg Tab) 650 mg PO Q4 PRN PRN Reason: Pain scale 1-10. Atorvastatin Calcium (Lipitor) 20 mg PO DAILY [facility] Last Admin: 08/24/18 08:53 Dose: 20 mg Cyanocobalamin (Vitamin B12 1000 Mcg Tab) 1,000 mcg PO DAILY [facility] Last Admin: 08/24/18 08:53 Dose: 1,000 mcg Insulin Human Regular (Humulin R) 0 units SC [facility]; Protocol Last Admin: 08/24/18 12:22 Dose: 3 units Polyethylene Glycol (Miralax) 17 gm PO HS [facility] Last Admin: 08/23/18 21:29 Dose: 17 gm Propranolol HCl (Inderal) 10 mg PO TID [facility] Last Admin: 08/24/18 12:25 Dose: 10 mg Ramipril (Altace) 2.5 mg PO DAILY [facility] Last Admin: 08/24/18 08:52 Dose: 2.5 mg Sertraline HCl (Zoloft) 100 mg PO DAILY [facility] Last Admin: 08/24/18 08:53 Dose: 100 mg - Labs Labs: 08/16/18 05:30 08/16/18 05:30 PT 12.8 Seconds (9.8-13.1) 08/16/18 05:30 INR 1.1 08/16/18 05:30 - Head Exam Head Exam: NORMAL INSPECTION - Eye Exam Eye Exam: Normal appearance - ENT Exam ENT Exam: Mucous Membranes Moist - Respiratory Exam Respiratory Exam: Clear to Ausculation Bilateral - Cardiovascular Exam Cardiovascular Exam: REGULAR RHYTHM - GI/Abdominal Exam GI & Abdominal Exam: Normal Bowel Sounds - Neurological Exam Neurological Exam: Awake, Oriented x3 Assessment and Plan (1) Diabetes mellitus type 2 in nonobese Status: Acute (2) Essential tremor Status: Acute (3) Hypertension Status: Acute (4) Subdural hematoma Status: Acute - Assessment and Plan (Free Text) Plan: Con tmeds Cont tx Cont PT pain meds
--- NOTE | 2018-08-24 16:57 | CP.PCM.PN ---
Subjective - Date & Time of Evaluation Date of Evaluation: 08/24/18 Time of Evaluation: 16:56 - Subjective Subjective: Patient seen in the room denies sob/cp laury were prepped and removed with no issues also one suture well tolerated continue current care Objective - Vital Signs/Intake and Output Vital Signs (last 24 hours): Temp Pulse Resp BP Pulse Ox 98.6 F 61 21 102/55 L 96 08/24/18 07:57 08/24/18 16:42 08/24/18 07:57 08/24/18 16:42 08/24/18 07:57 - Medications Medications: Current Medications Acetaminophen (Tylenol 325mg Tab) 650 mg PO Q6 PRN PRN Reason: Headache Acetaminophen (Tylenol 325mg Tab) 650 mg PO Q4 PRN PRN Reason: Pain scale 1-10. Atorvastatin Calcium (Lipitor) 20 mg PO DAILY [facility] Last Admin: 08/24/18 08:53 Dose: 20 mg Cyanocobalamin (Vitamin B12 1000 Mcg Tab) 1,000 mcg PO DAILY [facility] Last Admin: 08/24/18 08:53 Dose: 1,000 mcg Insulin Human Regular (Humulin R) 0 units SC [facility]; Protocol Last Admin: 08/24/18 16:42 Dose: Not Given Polyethylene Glycol (Miralax) 17 gm PO HS [facility] Last Admin: 08/23/18 21:29 Dose: 17 gm Propranolol HCl (Inderal) 10 mg PO TID [facility] Last Admin: 08/24/18 16:42 Dose: 10 mg Ramipril (Altace) 2.5 mg PO DAILY [facility] Last Admin: 08/24/18 08:52 Dose: 2.5 mg Sertraline HCl (Zoloft) 100 mg PO DAILY [facility] Last Admin: 08/24/18 08:53 Dose: 100 mg - Labs Labs: 08/16/18 05:30 08/16/18 05:30 PT 12.8 Seconds (9.8-13.1) 08/16/18 05:30 INR 1.1 08/16/18 05:30
--- NOTE | 2018-08-24 17:41 | CP.PCM.PN ---
Subjective - Date & Time of Evaluation Date of Evaluation: 08/22/18 Time of Evaluation: 10:00 - Subjective Subjective: Pt seen and assessed at bedside. Clinically improving; strength getting better. Able to follow commands. Left arm tremor is still present, however the pt is being treated with inderal. Review of Systems - Review of Systems All systems: reviewed and no additional remarkable complaints except - Constitutional Constitutional: Weakness Objective - Vital Signs/Intake and Output Vital Signs (last 24 hours): Temp Pulse Resp BP Pulse Ox 98.6 F 61 21 102/55 L 96 08/24/18 07:57 08/24/18 16:42 08/24/18 07:57 08/24/18 16:42 08/24/18 07:57 - Medications Medications: Current Medications Acetaminophen (Tylenol 325mg Tab) 650 mg PO Q6 PRN PRN Reason: Headache Acetaminophen (Tylenol 325mg Tab) 650 mg PO Q4 PRN PRN Reason: Pain scale 1-10. Atorvastatin Calcium (Lipitor) 20 mg PO DAILY [facility] Last Admin: 08/24/18 08:53 Dose: 20 mg Cyanocobalamin (Vitamin B12 1000 Mcg Tab) 1,000 mcg PO DAILY [facility] Last Admin: 08/24/18 08:53 Dose: 1,000 mcg Insulin Human Regular (Humulin R) 0 units SC [facility]; Protocol Last Admin: 08/24/18 16:42 Dose: Not Given Polyethylene Glycol (Miralax) 17 gm PO HS [facility] Last Admin: 08/23/18 21:29 Dose: 17 gm Propranolol HCl (Inderal) 10 mg PO TID [facility] Last Admin: 08/24/18 16:42 Dose: 10 mg Ramipril (Altace) 2.5 mg PO DAILY [facility] Last Admin: 08/24/18 08:52 Dose: 2.5 mg Sertraline HCl (Zoloft) 100 mg PO DAILY [facility] Last Admin: 08/24/18 08:53 Dose: 100 mg - Labs Labs: 08/16/18 05:30 08/16/18 05:30 PT 12.8 Seconds (9.8-13.1) 08/16/18 05:30 INR 1.1 08/16/18 05:30 - Head Exam Head Exam: NORMAL INSPECTION, NORMOCEPHALIC Additional comments: staple site to top, right part of head- clean, dry, and intact. - Eye Exam Eye Exam: EOMI, Normal appearance, PERRL Pupil Exam: NORMAL ACCOMODATION, PERRL - ENT Exam ENT Exam: Mucous Membranes Moist - Neck Exam Neck Exam: Full ROM, Normal Inspection - Respiratory Exam Respiratory Exam: Clear to Ausculation Bilateral - Cardiovascular Exam Cardiovascular Exam: REGULAR RHYTHM, +S1, +S2 - GI/Abdominal Exam GI & Abdominal Exam: Soft, Normal Bowel Sounds - Extremities Exam Extremities Exam: Normal Capillary Refill Additional comments: tremor to left arm. - Back Exam Back Exam: NORMAL INSPECTION - Neurological Exam Neurological Exam: Alert, Awake Neuro motor strength exam: Left Upper Extremity: 4, Right Upper Extremity: 5, Left Lower Extremity: 4, Right Lower Extremity: 5 - Psychiatric Exam Psychiatric exam: Normal Affect, Normal Mood - Skin Skin Exam: Dry, Normal Color, Warm Assessment and Plan (1) Subdural hematoma Assessment & Plan: 1.) Subdural Hematoma -strength improving; mild Left sided weakness noted compared to right side. -continue physical therapy/rehab. -left arm tremor noted, pt on inderal. -consults input appreciated. -continue current tx. Status: Acute
--- NOTE | 2018-08-24 17:50 | CP.PCM.PN ---
Subjective - Date & Time of Evaluation Date of Evaluation: 08/23/18 Time of Evaluation: 13:00 - Subjective Subjective: Pt seen and assessed in chair. No new complaints, strength improving. Right frontoparietal laury intact. Review of Systems - Review of Systems All systems: reviewed and no additional remarkable complaints except (left arm tremor) - Constitutional Constitutional: Weakness Objective - Vital Signs/Intake and Output Vital Signs (last 24 hours): Temp Pulse Resp BP Pulse Ox 98.6 F 61 21 102/55 L 96 08/24/18 07:57 08/24/18 16:42 08/24/18 07:57 08/24/18 16:42 08/24/18 07:57 - Medications Medications: Current Medications Acetaminophen (Tylenol 325mg Tab) 650 mg PO Q6 PRN PRN Reason: Headache Acetaminophen (Tylenol 325mg Tab) 650 mg PO Q4 PRN PRN Reason: Pain scale 1-10. Atorvastatin Calcium (Lipitor) 20 mg PO DAILY [facility] Last Admin: 08/24/18 08:53 Dose: 20 mg Cyanocobalamin (Vitamin B12 1000 Mcg Tab) 1,000 mcg PO DAILY [facility] Last Admin: 08/24/18 08:53 Dose: 1,000 mcg Insulin Human Regular (Humulin R) 0 units SC [facility]; Protocol Last Admin: 08/24/18 16:42 Dose: Not Given Polyethylene Glycol (Miralax) 17 gm PO HS [facility] Last Admin: 08/23/18 21:29 Dose: 17 gm Propranolol HCl (Inderal) 10 mg PO TID [facility] Last Admin: 08/24/18 16:42 Dose: 10 mg Ramipril (Altace) 2.5 mg PO DAILY [facility] Last Admin: 08/24/18 08:52 Dose: 2.5 mg Sertraline HCl (Zoloft) 100 mg PO DAILY [facility] Last Admin: 08/24/18 08:53 Dose: 100 mg - Labs Labs: 08/16/18 05:30 08/16/18 05:30 PT 12.8 Seconds (9.8-13.1) 08/16/18 05:30 INR 1.1 08/16/18 05:30 - Head Exam Head Exam: NORMAL INSPECTION, NORMOCEPHALIC Additional comments: right frontoparietal laury intact. - Eye Exam Eye Exam: EOMI, Normal appearance, PERRL Pupil Exam: NORMAL ACCOMODATION, PERRL - ENT Exam ENT Exam: Mucous Membranes Moist - Neck Exam Neck Exam: Normal Inspection - Respiratory Exam Respiratory Exam: Clear to Ausculation Bilateral - Cardiovascular Exam Cardiovascular Exam: REGULAR RHYTHM, +S1, +S2 - GI/Abdominal Exam GI & Abdominal Exam: Soft, Normal Bowel Sounds - Extremities Exam Extremities Exam: Normal Capillary Refill Additional comments: left arm tremor. - Back Exam Back Exam: NORMAL INSPECTION - Neurological Exam Neurological Exam: Alert, Awake Neuro motor strength exam: Left Upper Extremity: 4, Right Upper Extremity: 5, Left Lower Extremity: 4, Right Lower Extremity: 5 - Psychiatric Exam Psychiatric exam: Normal Affect, Normal Mood - Skin Skin Exam: Dry, Normal Color, Warm Assessment and Plan (1) Subdural hematoma Assessment & Plan: 1.) Subdural Hematoma -continue current tx. -Continue improving strength (PT/OT). -Maintain neuro checks. -safety precautions. Status: Acute
--- NOTE | 2018-08-24 18:40 | CP.PCM.PN ---
Subjective - Date & Time of Evaluation Date of Evaluation: 08/24/18 Time of Evaluation: 11:00 - Subjective Subjective: patient seen and examined at bedside. Interim events noted No complaints offered at this time denies cp/sob/fever/chills. available diagnostic data reviewed Review of Systems All systems: reviewed and no additional remarkable complaints except mentioned above Objective Vital Signs Stable - Constitutional Appears: Non-toxic, No Acute Distress Head Exam: NORMAL INSPECTION, laury of right scalp, c/d/i Eye Exam: Normal appearance Respiratory Exam: NORMAL BREATHING PATTERN Cardiovascular Exam: +S1, +S2 GI & Abdominal Exam: Soft Neurological Exam: Alert, Awake Psychiatric exam: Normal Affect, Normal Mood Skin Exam: Normal Color, Warm Assessment and Plan monitor vitals monitor labs Cont meds Cont therapy consultants appreciated input contact Neurosurg re: staple removal rest of plan as ordered Objective - Vital Signs/Intake and Output Vital Signs (last 24 hours): Temp Pulse Resp BP Pulse Ox 98.6 F 61 21 102/55 L 96 08/24/18 07:57 08/24/18 16:42 08/24/18 07:57 08/24/18 16:42 08/24/18 07:57 - Medications Medications: Current Medications Acetaminophen (Tylenol 325mg Tab) 650 mg PO Q6 PRN PRN Reason: Headache Acetaminophen (Tylenol 325mg Tab) 650 mg PO Q4 PRN PRN Reason: Pain scale 1-10. Atorvastatin Calcium (Lipitor) 20 mg PO DAILY [facility] Last Admin: 08/24/18 08:53 Dose: 20 mg Cyanocobalamin (Vitamin B12 1000 Mcg Tab) 1,000 mcg PO DAILY [facility] Last Admin: 08/24/18 08:53 Dose: 1,000 mcg Insulin Human Regular (Humulin R) 0 units SC [facility]; Protocol Last Admin: 08/24/18 16:42 Dose: Not Given Polyethylene Glycol (Miralax) 17 gm PO HS [facility] Last Admin: 08/23/18 21:29 Dose: 17 gm Propranolol HCl (Inderal) 10 mg PO TID [facility] Last Admin: 08/24/18 16:42 Dose: 10 mg Ramipril (Altace) 2.5 mg PO DAILY [facility] Last Admin: 08/24/18 08:52 Dose: 2.5 mg Sertraline HCl (Zoloft) 100 mg PO DAILY [facility] Last Admin: 08/24/18 08:53 Dose: 100 mg - Labs Labs: 08/16/18 05:30 08/16/18 05:30 PT 12.8 Seconds (9.8-13.1) 08/16/18 05:30 INR 1.1 08/16/18 05:30 Assessment and Plan (1) Subdural hematoma Status: Acute (2) Fall Status: Acute
[2018-08-24] MEDS: POLYETHYLENE GLYCOL 3350 17 GM/Dose PACKET PO SCH (21:18)
[2018-08-25] MEDS: Insulin Regular 100 units/ml SC SCH ×4 (06:47→21:54)
--- NOTE | 2018-08-25 13:12 | PCM.PSYTMC ---
Acute Rehab Team Conference - - Vital Signs: Vital Signs (Last 8 Hours): Vital Signs 08/25/18 08/25/18 08/25/18 08:32 08:54 08:55 Temperature 97.2 F L Pulse Rate 72 72 Respiratory 19 Rate Blood Pressure 122/68 122/68 122/68 O2 Sat by Pulse 98 Oximetry 08/25/18 08/25/18 09:00 12:58 Temperature 97.2 F L Pulse Rate 72 64 Respiratory 19 Rate Blood Pressure 122/68 108/58 L O2 Sat by Pulse Oximetry Pain: 0 - Precautions: Precautions: Fall Prevention, Aspiration, Pressure Ulcer - Medications/Other Issues: Comment: forgetfull needs alot of cues with periods of incontinent of urine laury removed 08/24/18 - Consults: Comment: Dr Cantor - Skin: Incision Site: pronto parietal arae Dressing Status: Clean, Dry, Intact Incision: Healing Well Incision Line Treatment: open to air - Toileting: Toileting: Minimal Assistance - Bladder Management: Bladder Pattern: Incontinent Voiding Method: Toilet, Urinal, Diaper Bladder Management: Minimal Assistance - Transfers: Transfers: Moderate Assistance - ADL's: ADL's: Minimal Assistance - Pain Management: Other Intervention:: denies any pain - Patient/Family Teaching: Other Intervention:: safety/fall medication teachings - Goals/Time Frame: Comment: as per multidiciplinary plan of care - Provider: Registered Nurse:: Gela Kraus Physical Therapy - Bed Mobility Bed Mobility: Verbal Cues, Minimal Assistance - Transfers Wheelchair to Mat: Verbal Cues, Minimal Assistance Sit to Stand: Verbal Cues, Minimal Assistance - Ambulation Level of Assistance: Verbal Cues, Contact Guard, Minimal Assistance Distance (ft.): 125 Assistive Devices: Rolling Walker - Stair Negotiation Stairs: Level of Assistance: Verbal Cues, Minimal Assistance, Moderate Assistance Number of Stairs: 4 Handrails: Bilateral - Standing Balance Static Stand: Minimal Assistance Comment: w/ RW - Pain Pain (assessed during therapy session): 0 Comment: N/A - Insight/Carryover Insight/Carryover: Fair - Patient/Family Education Comment: safety, strategies to increase attention to L side, POC - Assessment/Plan Assessment: Pt participated in 60 minute PT tx session focusing on BLE strengtehning exercises, balance and endurance activities, and functional mobility training. Pt ambulates with RW , fluctuates from CGA to mod A when performing turns. Pt will continue to benefit from skilled PT interventions to address deficits, reduce fall risk, and maximize functional independence. - Goals Timeframe: 2 weeks Goals: Sit < > supine with supervision. Sit < > stand transfers with supervision using RW. pt will ambulate 200 ft with RW and supervision. Pt will neogtiate flight of stairs with handrail and CGA - Provider Physical Therapist:: Candida Shane License Number:: [id number] Occupational Therapy - Arousal/Attention/Orientation Level of Consciousness: Awake, Alert, Forgetful Patient Orientation: Person, Place, Time, Appropriate to Age, Appropriate to Situation Assessment Comment: -forgetful @ times. -imiting factors include ++intention tremors, L inattention, impaired sensation/proprioception in LUE , impaired postural control/awareness, impaired endurance/activity tolerance, impaired safety, impaired LUE coordination(gross/fine), impaired cognition--impacting on function in self care, transfers/mobility. Pt will continue to benefit from skilled OT to further increase function/safety with daily livng tasks. - ADL/IADL Self Feeding: Supervision, Verbal Cues, Set-up Help Grooming: Verbal Cues, Set-up Help, Contact Guard Bathing-Upper Ext: Verbal Cues, Set-up Help, Minimal Assistance Bathing-Lower Ext: Verbal Cues, Set-up Help, Minimal Assistance, Moderate Assistance Dressing-Upper Ext: Verbal Cues, Set-up Help, Minimal Assistance, Moderate Assistance Dressing-Lower Ext: Verbal Cues, Set-up Help, Moderate Assistance Homemaking: Not Applicable Comment: *uses adaptive devices for lower body dressing--long shoe horn. *completes lower body dressing--pants while long sitting in bed for safety - Sitting Balance Static Sitting: Supervision Dynamic Sitting: Reaches across midline, Reaches out of base of support, Reaches within base of support, Minimal Assistance Comment: seated unsupported at edge of bed - Transfers Wheelchair to Bed Transfers: Verbal Cues, Set-up Help, Minimal Assistance, Moderate Assistance Toilet Transfers: Verbal Cues, Set-up Help, Minimal Assistance, Moderate Assistance - Wheelchair Management Level of Assistance: Moderate Assistance Distance (ft.): 20 - Upper Extremity Status Right Upper Extremity Comment: AROm is WNLS, strength 4+/5 Left Upper Extremity Comment: AROM is WFLS, strength 3+/5 to 4-/5--limited primarily by impaired sensation/propriocetion - Pain Pain (assessed during therapy session): 0 - Insight/Carryover Insight/Carryover: Fair - Patient/Family Education Comment: -adl, transfer/mobility training using compensatory strategies--further training needed to increase carryover. -LUE AROM activities, attending to LUE/L environment, LLE--further training needed. -postural control--sitting/standing for safety with self care. -rehab/OT goals, plan of care. -toileting program to minimize bowel/bladder incontinence, skin checks. -safety measures, fall prevention: bed and w/c seatbelt alarm; pt knows how to open/c;lose setabelt - Assessment/Plan Assessment: Pt is a 72 year old R handed Greenlandic speaking with dx: subdural hematoma. *Precautions: falls, impaired cognition, L sided weakness, impaired proprioception/body awareness, impaired sensation/proprioception LUE, w/c and bed alarms. Pt limited by the following impairments: -impaired cognition- memory, insight. -impaired standing/sitting balance & tolerance. -impaired activity tolerance. -impaired safety awareness. -impaired proprioception LUE/body. -impaired AROM/strength in LUE/LLE and trunk. -impaired postural control--which impact on self care, transfers/mobility and Iadls. pt demonstrates increased LUE AROM/strength, L attention, increase function in upper/lower body dressing, use od adaptive device--long shoe horn. Pt completes lower body dressing with greater safety when long sitting in bed. Pt will continue to benefit from skilled Occupational Therapy to address above areas to maximize function in self care, transfers & mobility using adaptive/comepnsatory strategies. Pt will continue to benefit from toileting program to minimize bouts of incontinence. *Goal: 24/ Supervision for adls/transfers/mobility or [facility] pending progress - Goals Timeframe: 8 days Comment: -FEEDING: Distant Supervision/setup--position more to R side. -GROOMI NG: Distant Supervision/setup verbal cues for oral hygiene, hand/face washing/drying. -UPPER BODY DRESSING: Min assist and verbal cues mauricio- techniques. -LOWER BODY DRESSING: Min assist and verbal cues mauricio-technies. - TOILETING: Min-mod assist and verbal cues. -TRANSFERS:<->bed, commode, w/c and other surfaces with Min assist and verbal cues. -LUE STRENGTH/AWARENESS: increase to 4-/5 & awareness as needed to complete adls. -W/C MANAGEMENT: min assist & verbal cues to manage brakes, propel w/c 50-75 feet. -BATHING: for upper/lower body --mod assist and verbal cues seated - Provider Occupational Therapist:: Suri Valera License Number: [id number] Speech Therapy - Consult Information Patient on Program: Yes Medical Diagnosis: SDH Treatment Diagnosis: mild-moderate cognitive deficits - Assessment Problem Solving Impairment: Mild Memory Impairment: Moderate - Plan Assessment: Edgar Murphy presents with mild-moderate cognitive-linguistic deficits characterized by impaired orientation, short-term recall, problem solving, reasoning, sequencing, and thought organization all negatively impacting pt's safety and functional independence; however, pt has demonstrated improved insight into his deficits. Pt with good participation in tx tasks and would benefit from continued skilled speech tx for improved cognitive skills, safety, and functional independence. Plan: Continue Speech/Language Therapy Frequency: 3-5 times per week Duration: 1 week Goals/Timeframe: Please see progress note dated 08/24/18 for updated goals/POC Recommendations: Continue speech tx 3-5x/week for improved cognition - Provider Therapist: Ni Padilla License Number: [id number] Recreational Therapy - Participation Participation: Participates in Individual and/or Group Sessions - Attendance Attendance: 3-5 times per week - Activities Leisure Activities: Cards and Games - Socialization Level of Socialization: Initiates/interacts freely with care givers and peer - Assessment Assessment/Plan: Pt is agreeable to participate in 1:1 and group recreation therapy sessions following encouragement. Pt has participated in spot-it matching task, modified jamal card task, and participated in bingo task with peers. Pt demonstrates improved attention to task and arousal level; however, during sessions pt will express concern with increase of tremors in L hand, which team is aware of. Pt will continue to benefit from participating in recreation therapy sessions throughout stay on unit. Problems Currently Limiting Participation: L UE weakness, impaired problem solving, decrease leisure awareness level Goals and Time Frame: Pt will tolerate 20 minutes of completing tabletop leisure task utilizing both hands to improve leisure awareness level and strength in UE by date of discharge. - Provider Therapist: Adrianne Ybarra Nutrition - Current Diet Current Diet/Supplement/Feedings: Moderate consistent CHO heart healthy diet - Appetite Percent Meal Consumed: 75-100% - Assessment/Goals/Time Frame Assessments/Goals/Time Frame: Pt at low nutritional risk. no goals. Follow-up due on 08/30/2018 - Provider Provider: Yasmin Garcia Case Management - Psychosocial Assessment Support Systems: Edgar Murphy (son) - [phone] Psychological Interventions/Needs: Patient is AAO with some forgetfulness. Discharge Concerns: Patient lives alone in an apartment. Patient/Family Meeting: CM met with patient and rehab team. Intervention/Goal/Outcome: 1. Goal: 24 hr care 2. Plan: [facility] at [place] pending auth 3. obtain auth for JAN[facility] from patient's [facility] [employer] complete 4. arrange transportation to [place] 5. contact family to inform them of patient's transfer once patient is formally accepted 6. f/u with Susan liaison - Discharge Plan Discharge Plan: Subacute care - Provider Provider: Luz Maria Perez License Number: [id number] Rehabilitation Plan - Treatment Plan Treatment Plan: Physical Therapy, Occupational Therapy, Speech, Dietary, Patient/Family Education - Discharge Plan Estimated Date of Discharge: 09/01/18 Discharge to: Subacute
--- NOTE | 2018-08-25 13:32 | CP.PCM.PN ---
Subjective - Date & Time of Evaluation Date of Evaluation: 08/25/18 Time of Evaluation: 13:31 - Subjective Subjective: patient seen in the room denies sob/cp right scalp looks good where I had taken the laury out working hard in therapies but will need to d/c to [facility] 09/01/18 continue current care Objective - Vital Signs/Intake and Output Vital Signs (last 24 hours): Temp Pulse Resp BP Pulse Ox 97.2 F L 64 19 108/58 L 98 08/25/18 09:00 08/25/18 12:58 08/25/18 09:00 08/25/18 12:58 08/25/18 08:32 - Medications Medications: Current Medications Acetaminophen (Tylenol 325mg Tab) 650 mg PO Q6 PRN PRN Reason: Headache Acetaminophen (Tylenol 325mg Tab) 650 mg PO Q4 PRN PRN Reason: Pain scale 1-10. Atorvastatin Calcium (Lipitor) 20 mg PO DAILY [facility] Last Admin: 08/25/18 08:56 Dose: 20 mg Cyanocobalamin (Vitamin B12 1000 Mcg Tab) 1,000 mcg PO DAILY [facility] Last Admin: 08/25/18 08:55 Dose: 1,000 mcg Insulin Human Regular (Humulin R) 0 units SC [facility]; Protocol Last Admin: 08/25/18 12:00 Dose: 2 units Polyethylene Glycol (Miralax) 17 gm PO HS [facility] Last Admin: 08/24/18 21:18 Dose: 17 gm Propranolol HCl (Inderal) 10 mg PO Q6 [facility] Last Admin: 08/25/18 12:58 Dose: 10 mg Ramipril (Altace) 2.5 mg PO DAILY [facility] Last Admin: 08/25/18 08:55 Dose: 2.5 mg Sertraline HCl (Zoloft) 100 mg PO DAILY [facility] Last Admin: 08/25/18 08:56 Dose: 100 mg - Labs Labs: 08/16/18 05:30 08/16/18 05:30 PT 12.8 Seconds (9.8-13.1) 08/16/18 05:30 INR 1.1 08/16/18 05:30
--- NOTE | 2018-08-25 16:10 | CP.PCM.CON ---
History of Present Illness - History of Present Illness History of Present Illness: 72 yr old male s/p subdural with profound tremor in left hand. The tremor is resting and has been present for many years. Neurology consult dictated. Please see note for more details. Plan: 1. Start sinemet 100/250 tid, 7am, 12 noon and 4 pm. 2. Continue pt WIll eliot Alcantara [facility] neurology Past Patient History - Past Medical History & Family History Past Medical History?: Yes Past Family History: Reviewed and not pertinent - Past Social History Smoking Status: Never Smoked - CARDIAC Hx Cardiac Disorders: Yes Hx Hypercholesterolemia: Yes - NEUROLOGICAL HX Cerebrovascular Accident: Yes - RENAL Other/Comment: Azotemia - ENDOCRINE/METABOLIC Hx Diabetes Mellitus Type 2: Yes - MUSCULOSKELETAL/RHEUMATOLOGICAL Hx Arthritis: Yes - PSYCHIATRIC Hx Psychophysiologic Disorder: Yes Hx Depression: Yes Hx Substance Use: No - ANESTHESIA Hx Anesthesia: Yes Hx Anesthesia Reactions: No Hx Malignant Hyperthermia: No Has any member of the family had a problem w/ anesthesia?: No Meds Allergies/Adverse Reactions: Allergies Allergy/AdvReac Type Severity Reaction Status Date / Time No Known Allergies Allergy Verified 08/14/18 18:46 - Medications Medications: Current Medications Acetaminophen (Tylenol 325mg Tab) 650 mg PO Q6 PRN PRN Reason: Headache Acetaminophen (Tylenol 325mg Tab) 650 mg PO Q4 PRN PRN Reason: Pain scale 1-10. Atorvastatin Calcium (Lipitor) 20 mg PO DAILY [facility] Last Admin: 08/25/18 08:56 Dose: 20 mg Cyanocobalamin (Vitamin B12 1000 Mcg Tab) 1,000 mcg PO DAILY [facility] Last Admin: 08/25/18 08:55 Dose: 1,000 mcg Insulin Human Regular (Humulin R) 0 units SC [facility]; Protocol Last Admin: 08/25/18 12:00 Dose: 2 units Polyethylene Glycol (Miralax) 17 gm PO HS [facility] Last Admin: 08/24/18 21:18 Dose: 17 gm Propranolol HCl (Inderal) 10 mg PO Q6 [facility] Last Admin: 08/25/18 12:58 Dose: 10 mg Ramipril (Altace) 2.5 mg PO DAILY [facility] Last Admin: 08/25/18 08:55 Dose: 2.5 mg Sertraline HCl (Zoloft) 100 mg PO DAILY [facility] Last Admin: 08/25/18 08:56 Dose: 100 mg Results - Vital Signs Recent Vital Signs: Last Vital Signs Temp 97.2 F L 08/25/18 09:00 Pulse 64 08/25/18 12:58 Resp 19 08/25/18 09:00 BP 108/58 L 08/25/18 12:58 Pulse Ox 98 08/25/18 08:45 - Labs Result Diagrams: 08/16/18 05:30 08/16/18 05:30 Labs: Laboratory Results - last 24 hr 08/24/18 08/24/18 08/24/18 16:09 16:40 20:16 POC Glucose (mg/dL) 62 L 112 H 111 H 08/25/18 08/25/18 05:29 11:11 POC Glucose (mg/dL) 129 H 180 H
[2018-08-25] MEDS: POLYETHYLENE GLYCOL 3350 17 GM/Dose PACKET PO SCH (21:55)
--- NOTE | 2018-08-25 22:30 | CP.PCM.PN ---
Subjective - Date & Time of Evaluation Date of Evaluation: 08/25/18 Time of Evaluation: 11:05 - Subjective Subjective: patient has been stable Doing well with PT Has no headaches Noted to have increasing left upper extremity tremors On Inderal 10 mg tid Objective - Vital Signs/Intake and Output Vital Signs (last 24 hours): Temp Pulse Resp BP Pulse Ox 97.9 F 66 20 106/63 97 08/25/18 20:22 08/25/18 20:22 08/25/18 20:22 08/25/18 20:22 08/25/18 20:22 - Medications Medications: Current Medications Acetaminophen (Tylenol 325mg Tab) 650 mg PO Q6 PRN PRN Reason: Headache Acetaminophen (Tylenol 325mg Tab) 650 mg PO Q4 PRN PRN Reason: Pain scale 1-10. Atorvastatin Calcium (Lipitor) 20 mg PO DAILY [facility] Last Admin: 08/25/18 08:56 Dose: 20 mg Carbidopa/Levodopa (Sinemet) 1 tab PO TID [facility] Last Admin: 08/25/18 19:59 Dose: 1 tab Cyanocobalamin (Vitamin B12 1000 Mcg Tab) 1,000 mcg PO DAILY [facility] Last Admin: 08/25/18 08:55 Dose: 1,000 mcg Insulin Human Regular (Humulin R) 0 units SC [facility]; Protocol Last Admin: 08/25/18 21:54 Dose: Not Given Polyethylene Glycol (Miralax) 17 gm PO HS [facility] Last Admin: 08/25/18 21:55 Dose: 17 gm Propranolol HCl (Inderal) 10 mg PO Q6 [facility] Last Admin: 08/25/18 17:26 Dose: 10 mg Ramipril (Altace) 2.5 mg PO DAILY [facility] Last Admin: 08/25/18 08:55 Dose: 2.5 mg Sertraline HCl (Zoloft) 100 mg PO DAILY [facility] Last Admin: 08/25/18 08:56 Dose: 100 mg - Labs Labs: 08/16/18 05:30 08/16/18 05:30 PT 12.8 Seconds (9.8-13.1) 08/16/18 05:30 INR 1.1 08/16/18 05:30 - Head Exam Head Exam: NORMAL INSPECTION - Eye Exam Eye Exam: Normal appearance - ENT Exam ENT Exam: Mucous Membranes Moist - Respiratory Exam Respiratory Exam: Clear to Ausculation Bilateral - Cardiovascular Exam Cardiovascular Exam: REGULAR RHYTHM - GI/Abdominal Exam GI & Abdominal Exam: Normal Bowel Sounds - Neurological Exam Neurological Exam: Awake Assessment and Plan (1) Diabetes mellitus type 2 in nonobese Status: Acute (2) Essential tremor Status: Acute (3) Hypertension Status: Acute (4) Subdural hematoma Status: Acute - Assessment and Plan (Free Text) Plan: Con tmeds Cont tx Neuro eval for possible Parkinson's increase inderal to 10 mg qid
--- NOTE | 2018-08-26 03:27 | CON ---
DATE: 08/25/2018 NEUROLOGY CONSULTATION CALLED BY: Wander Rivas MD HISTORY OF PRESENT ILLNESS: This is a 72-year-old male who was admitted to the rehab facility with a history of residual hematoma, status post evacuation. The patient has been here since 08/14/2018. In brief, the history is as follows: He had a fall at home. He had a subdural drain completed by Neurosurgery, and he was in rehab. PAST MEDICAL HISTORY: Nonsignificant. FAMILY HISTORY: The patient is , lives with his . SOCIAL HISTORY: There is no tobacco. There is no alcohol. There is no EtOH. There is no IVDA. MEDICATIONS: He is not on any significant medications. During rehab, he was doing well, but yesterday afternoon, the team noticed that he had significant tremor in his left arm, and neurology consult was called. The patient, during the interview, states that he has had the tremor for over ten years and has always had difficulty walking. Has never seen a neurologist. CAT scan is not noted. REVIEW OF SYSTEMS: Negative for headache, nausea, vomiting, weakness, aphasia, or dysarthria. PHYSICAL EXAMINATION: GENERAL: The patient is alert and oriented x3. There is a large curvilinear scar in the right temporoparietal region which is in the healing process. NEUROLOGIC: The patient's mini mental status is 30/30. Exam was conducted in Qatari. There is no facial asymmetry. Motor tone is normal. Strength is normal. There is a high amplitude resting tremor noted in the left arm. There is also tremor noted in the right hand. Sensory is intact to fine touch, pin. [id number] shows that there is a sense of increase in amplitude of activity. There is cogwheel rigidity bilaterally. There is bradykinesia. The patient had trouble getting up to walk. When he did walk, he walked with a slow gait and had postural instability with a 6 point turn. LABORATORY DATA: Labs are within normal limits. IMPRESSION: This is a 72-year-old male with Parkinson's disease, etiology unknown. PLAN: Start Sinemet 25/100 t.i.d. at 7 a.m, 12 noon, and 5 p.m. Thank you for this interesting consult. Our team will follow. Ondina Alcantara MD [facility]
[2018-08-26] MEDS: Insulin Regular 100 units/ml SC SCH ×4 (07:51→21:19)
--- NOTE | 2018-08-26 17:04 | CP.PCM.PN ---
Subjective - Date & Time of Evaluation Date of Evaluation: 08/26/18 Time of Evaluation: 17:03 - Subjective Subjective: Patient seen in the room doing well incision CDI well approximated improving strength continue current care Objective - Vital Signs/Intake and Output Vital Signs (last 24 hours): Temp Pulse Resp BP Pulse Ox 97.3 F L 67 19 118/55 L 98 08/26/18 08:13 08/26/18 12:27 08/26/18 08:13 08/26/18 12:27 08/26/18 08:13 - Medications Medications: Current Medications Acetaminophen (Tylenol 325mg Tab) 650 mg PO Q6 PRN PRN Reason: Headache Acetaminophen (Tylenol 325mg Tab) 650 mg PO Q4 PRN PRN Reason: Pain scale 1-10. Atorvastatin Calcium (Lipitor) 20 mg PO DAILY [facility] Last Admin: 08/26/18 09:29 Dose: 20 mg Carbidopa/Levodopa (Sinemet) 1 tab PO TID [facility] Last Admin: 08/26/18 12:26 Dose: 1 tab Cyanocobalamin (Vitamin B12 1000 Mcg Tab) 1,000 mcg PO DAILY [facility] Last Admin: 08/26/18 09:28 Dose: 1,000 mcg Insulin Human Regular (Humulin R) 0 units SC [facility]; Protocol Last Admin: 08/26/18 12:25 Dose: Not Given Polyethylene Glycol (Miralax) 17 gm PO HS [facility] Last Admin: 08/25/18 21:55 Dose: 17 gm Propranolol HCl (Inderal) 10 mg PO Q6 [facility] Last Admin: 08/26/18 12:27 Dose: 10 mg Ramipril (Altace) 2.5 mg PO DAILY [facility] Last Admin: 08/26/18 09:28 Dose: 2.5 mg Sertraline HCl (Zoloft) 100 mg PO DAILY [facility] Last Admin: 08/26/18 09:28 Dose: 100 mg - Labs Labs: 08/16/18 05:30 08/16/18 05:30 PT 12.8 Seconds (9.8-13.1) 08/16/18 05:30 INR 1.1 08/16/18 05:30
[2018-08-26] MEDS: POLYETHYLENE GLYCOL 3350 17 GM/Dose PACKET PO SCH (21:19)
[2018-08-27] MEDS: Insulin Regular 100 units/ml SC SCH ×4 (07:36→21:26)
--- NOTE | 2018-08-27 14:25 | CP.PCM.PN ---
Subjective - Date & Time of Evaluation Date of Evaluation: 08/27/18 Time of Evaluation: 14:22 - Subjective Subjective: Neuro Follow up Note: Mr. Murphy was evaluated this afternoon at bedside. He states that his hand tremors are improving since being started on Sinemet. He offers no complaints today. Denies h/a, dizziness, visual changes, chest pain, sob, abd pain, n/v/d, paresthesias. Objective - Vital Signs/Intake and Output Vital Signs (last 24 hours): Temp Pulse Resp BP Pulse Ox 97.5 F L 62 20 117/67 97 08/27/18 08:29 08/27/18 12:36 08/27/18 08:29 08/27/18 12:36 08/27/18 08:29 - Medications Medications: Current Medications Acetaminophen (Tylenol 325mg Tab) 650 mg PO Q6 PRN PRN Reason: Headache Acetaminophen (Tylenol 325mg Tab) 650 mg PO Q4 PRN PRN Reason: Pain scale 1-10. Atorvastatin Calcium (Lipitor) 20 mg PO DAILY [facility] Last Admin: 08/27/18 08:18 Dose: 20 mg Carbidopa/Levodopa (Sinemet) 1 tab PO TID@0700,1200,1700 [facility] Last Admin: 08/27/18 12:36 Dose: 1 tab Cyanocobalamin (Vitamin B12 1000 Mcg Tab) 1,000 mcg PO DAILY [facility] Last Admin: 08/27/18 08:19 Dose: 1,000 mcg Insulin Human Regular (Humulin R) [address] [facility]; Protocol Last Admin: 08/27/18 12:00 Dose: Not Given Polyethylene Glycol (Miralax) 17 gm PO HS [facility] Last Admin: 08/26/18 21:19 Dose: 17 gm Propranolol HCl (Inderal) 10 mg PO Q6 [facility] Last Admin: 08/27/18 12:36 Dose: 10 mg Ramipril (Altace) 2.5 mg PO DAILY [facility] Last Admin: 08/27/18 08:18 Dose: 2.5 mg Sertraline HCl (Zoloft) 100 mg PO DAILY [facility] Last Admin: 08/27/18 08:19 Dose: 100 mg - Labs Labs: 08/16/18 05:30 08/16/18 05:30 PT 12.8 Seconds (9.8-13.1) 08/16/18 05:30 INR 1.1 08/16/18 05:30 - Constitutional Appears: Well, Non-toxic, No Acute Distress - Head Exam Additional comments: Post-surgical incision site noted to left parietal area. - Eye Exam Eye Exam: EOMI, Normal appearance, PERRL Pupil Exam: NORMAL ACCOMODATION, PERRL - ENT Exam ENT Exam: Mucous Membranes Moist - Neck Exam Neck Exam: Full ROM, Normal Inspection - Respiratory Exam Respiratory Exam: NORMAL BREATHING PATTERN - Extremities Exam Extremities Exam: Full ROM. absent: Calf Tenderness, Pedal Edema Additional comments: generalized weakness to BLE 2/2 deconditioning - Neurological Exam Neurological Exam: Alert, Awake, CN II-XII Intact, Oriented x3 Neuro motor strength exam: Left Upper Extremity: 5 (licensed nurse practitioner 5/5), Right Upper Extremity: 5 (licensed nurse practitioner 5/5), Left Lower Extremity: 4, Right Lower Extremity: 4 Additional comments: Speech clear, fluid Generalized weakness to BLE 2/2 deconditioning + b/l hand tremors noted, more to the left hand No bradykinesia noted; cogwheeling has improved - Psychiatric Exam Psychiatric exam: Normal Affect, Normal Mood - Skin Skin Exam: Normal Color Additional comments: post-surgical incision site noted to left parietal area. Assessment and Plan (1) Essential tremor Assessment & Plan: -Continue Sinemet as ordered at 7am, 12pm, and 5pm -Continue therapy as tolerated. -Recommend Paul scan as outpatient to r/o Parkinsons. -Notify neuro team of any acute changes to pt's condition. Will f/u with pt next week prior to his d/c. Carol Zabala, [place], INTELLIGENCE ENGINEER Case discussed with Dr. Alcantara Status: Acute
--- NOTE | 2018-08-27 18:18 | CP.PCM.PN ---
Subjective - Date & Time of Evaluation Date of Evaluation: 08/27/18 Time of Evaluation: 10:30 - Subjective Subjective: patient seen and examined during therapy Interim events noted No complaints offered at this time denies cp/sob/fever/chills. available diagnostic data reviewed Review of Systems All systems: reviewed and no additional remarkable complaints except mentioned above Objective Vital Signs Stable - Constitutional Appears: Non-toxic, No Acute Distress Head Exam: NORMAL INSPECTION, laury of right scalp have been removed, incision c/d/i Eye Exam: Normal appearance Respiratory Exam: NORMAL BREATHING PATTERN Cardiovascular Exam: +S1, +S2 GI & Abdominal Exam: Soft Neurological Exam: Alert, Awake Psychiatric exam: Normal Affect, Normal Mood Skin Exam: Normal Color, Warm Assessment and Plan monitor vitals monitor labs Cont meds Cont therapy consultants appreciated input rest of plan as ordered Objective - Vital Signs/Intake and Output Vital Signs (last 24 hours): Temp Pulse Resp BP Pulse Ox 97.5 F L 64 20 113/60 97 08/27/18 08:29 08/27/18 17:22 08/27/18 08:29 08/27/18 17:22 08/27/18 08:29 - Medications Medications: Current Medications Acetaminophen (Tylenol 325mg Tab) 650 mg PO Q6 PRN PRN Reason: Headache Acetaminophen (Tylenol 325mg Tab) 650 mg PO Q4 PRN PRN Reason: Pain scale 1-10. Atorvastatin Calcium (Lipitor) 20 mg PO DAILY [facility] Last Admin: 08/27/18 08:18 Dose: 20 mg Carbidopa/Levodopa (Sinemet) 1 tab PO TID@0700,1200,1700 [facility] Last Admin: 08/27/18 17:22 Dose: 1 tab Cyanocobalamin (Vitamin B12 1000 Mcg Tab) 1,000 mcg PO DAILY [facility] Last Admin: 08/27/18 08:19 Dose: 1,000 mcg Insulin Human Regular (Humulin R) 0 units SC [facility]; Protocol Last Admin: 08/27/18 17:23 Dose: Not Given Polyethylene Glycol (Miralax) 17 gm PO HS [facility] Last Admin: 08/26/18 21:19 Dose: 17 gm Propranolol HCl (Inderal) 10 mg PO Q6 [facility] Last Admin: 08/27/18 17:22 Dose: 10 mg Ramipril (Altace) 2.5 mg PO DAILY [facility] Last Admin: 08/27/18 08:18 Dose: 2.5 mg Sertraline HCl (Zoloft) 100 mg PO DAILY [facility] Last Admin: 08/27/18 08:19 Dose: 100 mg - Labs Labs: 08/16/18 05:30 08/16/18 05:30 PT 12.8 Seconds (9.8-13.1) 08/16/18 05:30 INR 1.1 08/16/18 05:30 Assessment and Plan (1) Subdural hematoma Status: Acute (2) Fall Status: Acute
[2018-08-27] MEDS: POLYETHYLENE GLYCOL 3350 17 GM/Dose PACKET PO SCH (21:23)
--- NOTE | 2018-08-28 02:32 | CP.PCM.PN ---
Subjective - Date & Time of Evaluation Date of Evaluation: 08/26/18 Time of Evaluation: 08:50 - Subjective Subjective: Pt seen and assessed at bedside. Improving well, no new complaints. Left upper extremity tremor has not subsided, neurology was consulted and the pt started sinimet TID. Review of Systems - Review of Systems All systems: reviewed and no additional remarkable complaints except (left arm tremor.) Objective - Vital Signs/Intake and Output Vital Signs (last 24 hours): Temp Pulse Resp BP Pulse Ox 97.9 F 62 20 112/63 98 08/27/18 20:00 08/27/18 23:31 08/27/18 20:00 08/27/18 23:31 08/27/18 20:00 - Medications Medications: Current Medications Acetaminophen (Tylenol 325mg Tab) 650 mg PO Q6 PRN PRN Reason: Headache Acetaminophen (Tylenol 325mg Tab) 650 mg PO Q4 PRN PRN Reason: Pain scale 1-10. Atorvastatin Calcium (Lipitor) 20 mg PO DAILY [facility] Last Admin: 08/27/18 08:18 Dose: 20 mg Carbidopa/Levodopa (Sinemet) 1 tab PO TID@0700,1200,1700 [facility] Last Admin: 08/27/18 17:22 Dose: 1 tab Cyanocobalamin (Vitamin B12 1000 Mcg Tab) 1,000 mcg PO DAILY [facility] Last Admin: 08/27/18 08:19 Dose: 1,000 mcg Insulin Human Regular (Humulin R) 0 units SC [facility]; Protocol Last Admin: 08/27/18 21:26 Dose: Not Given Polyethylene Glycol (Miralax) 17 gm PO HS [facility] Last Admin: 08/27/18 21:23 Dose: 17 gm Propranolol HCl (Inderal) 10 mg PO Q6 [facility] Last Admin: 08/27/18 23:31 Dose: 10 mg Ramipril (Altace) 2.5 mg PO DAILY [facility] Last Admin: 08/27/18 08:18 Dose: 2.5 mg Sertraline HCl (Zoloft) 100 mg PO DAILY [facility] Last Admin: 08/27/18 08:19 Dose: 100 mg - Labs Labs: 08/16/18 05:30 08/16/18 05:30 PT 12.8 Seconds (9.8-13.1) 08/16/18 05:30 INR 1.1 08/16/18 05:30 - Head Exam Head Exam: ATRAUMATIC, NORMAL INSPECTION, NORMOCEPHALIC Additional comments: right fronto-parietal area laury noted. - Eye Exam Eye Exam: EOMI, Normal appearance, PERRL Pupil Exam: NORMAL ACCOMODATION, PERRL - ENT Exam ENT Exam: Mucous Membranes Moist - Neck Exam Neck Exam: Normal Inspection - Respiratory Exam Respiratory Exam: Clear to Ausculation Bilateral - Cardiovascular Exam Cardiovascular Exam: REGULAR RHYTHM, +S1, +S2 - GI/Abdominal Exam GI & Abdominal Exam: Soft, Normal Bowel Sounds - Extremities Exam Extremities Exam: Normal Capillary Refill, Normal Inspection - Back Exam Back Exam: NORMAL INSPECTION - Neurological Exam Neurological Exam: Alert, Awake Neuro motor strength exam: Left Upper Extremity: 4, Right Upper Extremity: 5, Left Lower Extremity: 4, Right Lower Extremity: 5 - Psychiatric Exam Psychiatric exam: Normal Affect, Normal Mood - Skin Skin Exam: Dry, Normal Color, Warm Assessment and Plan (1) Subdural hematoma Assessment & Plan: 1.) Subdural Hematoma -Continue improving strength (PT/OT). -Pt was previously being treated for tremors of the left upper extremity with Inderal. -Neuro was consulted and saw pt; Sinemet was started TID. Clinical impression is now likely parkinsonism as per neuro. -Maintain neuro checks. -safety precautions. -continue current Tx. Status: Acute
[2018-08-28] MEDS: Insulin Regular 100 units/ml SC SCH ×4 (06:30→21:05)
--- NOTE | 2018-08-28 16:36 | CP.PCM.PN ---
Subjective - Date & Time of Evaluation Date of Evaluation: 08/28/18 Time of Evaluation: 16:35 - Subjective Subjective: Patient seen in the gym happy with progress denies pain scalp incision continues to mature and is approximated. Objective - Vital Signs/Intake and Output Vital Signs (last 24 hours): Temp Pulse Resp BP Pulse Ox 98.2 F 60 18 87/57 L 95 08/28/18 09:11 08/28/18 11:53 08/28/18 09:11 08/28/18 11:53 08/28/18 09:11 - Medications Medications: Current Medications Acetaminophen (Tylenol 325mg Tab) 650 mg PO Q6 PRN PRN Reason: Headache Acetaminophen (Tylenol 325mg Tab) 650 mg PO Q4 PRN PRN Reason: Pain scale 1-10. Atorvastatin Calcium (Lipitor) 20 mg PO DAILY [facility] Last Admin: 08/28/18 08:43 Dose: 20 mg Carbidopa/Levodopa (Sinemet) 1 tab PO TID@0700,1200,1700 [facility] Last Admin: 08/28/18 16:20 Dose: 1 tab Cyanocobalamin (Vitamin B12 1000 Mcg Tab) 1,000 mcg PO DAILY [facility] Last Admin: 08/28/18 08:44 Dose: 1,000 mcg Insulin Human Regular (Humulin R) 0 units [facility]; Protocol Last Admin: 08/28/18 16:20 Dose: Not Given Polyethylene Glycol (Miralax) 17 gm PO HS [facility] Last Admin: 08/27/18 21:23 Dose: 17 gm Propranolol HCl (Inderal) 10 mg PO Q6 [facility] Last Admin: 08/28/18 11:53 Dose: Not Given Ramipril (Altace) 2.5 mg PO DAILY [facility] Last Admin: 08/28/18 08:43 Dose: 2.5 mg Sertraline HCl (Zoloft) 100 mg PO DAILY [facility] Last Admin: 08/28/18 08:43 Dose: 100 mg - Labs Labs: 08/16/18 05:30 08/16/18 05:30 PT 12.8 Seconds (9.8-13.1) 08/16/18 05:30 INR 1.1 08/16/18 05:30
[2018-08-28] MEDS: POLYETHYLENE GLYCOL 3350 17 GM/Dose PACKET PO SCH (21:02)
[2018-08-29] MEDS: Insulin Regular 100 units/ml SC SCH ×4 (06:30→21:25)
[2018-08-29] MEDS: POLYETHYLENE GLYCOL 3350 17 GM/Dose PACKET PO SCH (21:25)
[2018-08-30] MEDS: Insulin Regular 100 units/ml SC SCH ×4 (06:30→21:25)
[2018-08-30] MEDS: POLYETHYLENE GLYCOL 3350 17 GM/Dose PACKET PO SCH (21:22)
--- NOTE | 2018-08-30 21:45 | CP.PCM.PN ---
Subjective - Date & Time of Evaluation Date of Evaluation: 08/28/18 Time of Evaluation: 10:25 - Subjective Subjective: Patient continues to have tremors on the left hand Otherwise doing well with PT Objective - Vital Signs/Intake and Output Vital Signs (last 24 hours): Temp Pulse Resp BP Pulse Ox 98.2 F 68 20 105/66 96 08/30/18 08:08 08/30/18 17:17 08/30/18 08:08 08/30/18 17:17 08/30/18 08:08 - Medications Medications: Current Medications Acetaminophen (Tylenol 325mg Tab) 650 mg PO Q6 PRN PRN Reason: Headache Acetaminophen (Tylenol 325mg Tab) 650 mg PO Q4 PRN PRN Reason: Pain scale 1-10. Atorvastatin Calcium (Lipitor) 20 mg PO DAILY [facility] Last Admin: 08/30/18 08:46 Dose: 20 mg Carbidopa/Levodopa (Sinemet) 1 tab PO TID@0700,1200,1700 [facility] Last Admin: 08/30/18 17:16 Dose: 1 tab Cyanocobalamin (Vitamin B12 1000 Mcg Tab) 1,000 mcg PO DAILY [facility] Last Admin: 08/30/18 08:46 Dose: 1,000 mcg Insulin Human Regular (Humulin R) 0 units SC [facility]; Protocol Last Admin: 08/30/18 21:25 Dose: Not Given Polyethylene Glycol (Miralax) 17 gm PO HS [facility] Last Admin: 08/30/18 21:22 Dose: 17 gm Propranolol HCl (Inderal) 10 mg PO Q6 [facility] Last Admin: 08/30/18 17:17 Dose: Not Given Ramipril (Altace) 2.5 mg PO DAILY [facility] Last Admin: 08/30/18 08:47 Dose: 2.5 mg Sertraline HCl (Zoloft) 100 mg PO DAILY [facility] Last Admin: 08/30/18 08:46 Dose: 100 mg - Labs Labs: 08/16/18 05:30 08/16/18 05:30 PT 12.8 Seconds (9.8-13.1) 08/16/18 05:30 INR 1.1 08/16/18 05:30 - Head Exam Head Exam: NORMAL INSPECTION - Eye Exam Eye Exam: Normal appearance - ENT Exam ENT Exam: Mucous Membranes Moist - Respiratory Exam Respiratory Exam: Clear to Ausculation Bilateral - Cardiovascular Exam Cardiovascular Exam: REGULAR RHYTHM - GI/Abdominal Exam GI & Abdominal Exam: Normal Bowel Sounds - Neurological Exam Neurological Exam: Awake Assessment and Plan (1) Diabetes mellitus type 2 in nonobese Status: Acute (2) Essential tremor Status: Acute (3) Hypertension Status: Acute (4) Subdural hematoma Status: Acute - Assessment and Plan (Free Text) Plan: Cont meds COn ttx COnt PT Follow up with Neuro
--- NOTE | 2018-08-30 21:49 | CP.PCM.PN ---
Subjective - Date & Time of Evaluation Date of Evaluation: 08/29/18 Time of Evaluation: 11:00 - Subjective Subjective: Patient is doing well with PT Has no headaches Has no chest pain or SOB Has poor gait and balance Still with a lot of tremors on the left hand. Objective - Vital Signs/Intake and Output Vital Signs (last 24 hours): Temp Pulse Resp BP Pulse Ox 98.2 F 68 20 105/66 96 08/30/18 08:08 08/30/18 17:17 08/30/18 08:08 08/30/18 17:17 08/30/18 08:08 - Medications Medications: Current Medications Acetaminophen (Tylenol 325mg Tab) 650 mg PO Q6 PRN PRN Reason: Headache Acetaminophen (Tylenol 325mg Tab) 650 mg PO Q4 PRN PRN Reason: Pain scale 1-10. Atorvastatin Calcium (Lipitor) 20 mg PO DAILY [facility] Last Admin: 08/30/18 08:46 Dose: 20 mg Carbidopa/Levodopa (Sinemet) 1 tab PO TID@0700,1200,1700 [facility] Last Admin: 08/30/18 17:16 Dose: 1 tab Cyanocobalamin (Vitamin B12 1000 Mcg Tab) 1,000 mcg PO DAILY [facility] Last Admin: 08/30/18 08:46 Dose: 1,000 mcg Insulin Human Regular (Humulin R) 0 units SC [facility]; Protocol Last Admin: 08/30/18 21:25 Dose: Not Given Polyethylene Glycol (Miralax) 17 gm PO HS [facility] Last Admin: 08/30/18 21:22 Dose: 17 gm Propranolol HCl (Inderal) 10 mg PO Q6 [facility] Last Admin: 08/30/18 17:17 Dose: Not Given Ramipril (Altace) 2.5 mg PO DAILY [facility] Last Admin: 08/30/18 08:47 Dose: 2.5 mg Sertraline HCl (Zoloft) 100 mg PO DAILY [facility] Last Admin: 08/30/18 08:46 Dose: 100 mg - Labs Labs: 08/16/18 05:30 08/16/18 05:30 PT 12.8 Seconds (9.8-13.1) 08/16/18 05:30 INR 1.1 08/16/18 05:30 - Head Exam Head Exam: NORMAL INSPECTION - Eye Exam Eye Exam: Normal appearance - ENT Exam ENT Exam: Mucous Membranes Moist - Respiratory Exam Respiratory Exam: Clear to Ausculation Bilateral - Cardiovascular Exam Cardiovascular Exam: REGULAR RHYTHM - GI/Abdominal Exam GI & Abdominal Exam: Normal Bowel Sounds - Neurological Exam Neurological Exam: Awake, Oriented x3 Additional comments: tremors on the left hand Assessment and Plan (1) Diabetes mellitus type 2 in nonobese Status: Acute (2) Essential tremor Status: Acute (3) Hypertension Status: Acute (4) Subdural hematoma Status: Acute - Assessment and Plan (Free Text) Plan: Cont meds Cont PT Cont tx adjust propranolol
--- NOTE | 2018-08-30 21:51 | CP.PCM.PN ---
Subjective - Date & Time of Evaluation Date of Evaluation: 08/30/18 Time of Evaluation: 11:20 - Subjective Subjective: Patient remains well Has no chest pain or SOB Has less tremors. Started on sinemet. Objective - Vital Signs/Intake and Output Vital Signs (last 24 hours): Temp Pulse Resp BP Pulse Ox 98.2 F 68 20 105/66 96 08/30/18 08:08 08/30/18 17:17 08/30/18 08:08 08/30/18 17:17 08/30/18 08:08 - Medications Medications: Current Medications Acetaminophen (Tylenol 325mg Tab) 650 mg PO Q6 PRN PRN Reason: Headache Acetaminophen (Tylenol 325mg Tab) 650 mg PO Q4 PRN PRN Reason: Pain scale 1-10. Atorvastatin Calcium (Lipitor) 20 mg PO DAILY [facility] Last Admin: 08/30/18 08:46 Dose: 20 mg Carbidopa/Levodopa (Sinemet) 1 tab PO TID@0700,1200,1700 [facility] Last Admin: 08/30/18 17:16 Dose: 1 tab Cyanocobalamin (Vitamin B12 1000 Mcg Tab) 1,000 mcg PO DAILY [facility] Last Admin: 08/30/18 08:46 Dose: 1,000 mcg Insulin Human Regular (Humulin R) 0 units [facility]; Protocol Last Admin: 08/30/18 21:25 Dose: Not Given Polyethylene Glycol (Miralax) 17 gm PO HS [facility] Last Admin: 08/30/18 21:22 Dose: 17 gm Propranolol HCl (Inderal) 10 mg PO Q6 [facility] Last Admin: 08/30/18 17:17 Dose: Not Given Ramipril (Altace) 2.5 mg PO DAILY [facility] Last Admin: 08/30/18 08:47 Dose: 2.5 mg Sertraline HCl (Zoloft) 100 mg PO DAILY [facility] Last Admin: 08/30/18 08:46 Dose: 100 mg - Labs Labs: 08/16/18 05:30 08/16/18 05:30 PT 12.8 Seconds (9.8-13.1) 08/16/18 05:30 INR 1.1 08/16/18 05:30 - Head Exam Head Exam: NORMAL INSPECTION - Eye Exam Eye Exam: Normal appearance - ENT Exam ENT Exam: Mucous Membranes Moist - Respiratory Exam Respiratory Exam: Clear to Ausculation Bilateral - Cardiovascular Exam Cardiovascular Exam: REGULAR RHYTHM - GI/Abdominal Exam GI & Abdominal Exam: Normal Bowel Sounds - Neurological Exam Neurological Exam: Awake, Oriented x3 Assessment and Plan (1) Diabetes mellitus type 2 in nonobese Status: Acute (2) Essential tremor Status: Acute (3) Hypertension Status: Acute (4) Subdural hematoma Status: Acute (5) Parkinson disease Status: Acute - Assessment and Plan (Free Text) Plan: Cont meds Cont tx Cont PT cont sinemet. decrease propranolol.
[2018-08-31] MEDS: Insulin Regular 100 units/ml SC SCH ×4 (06:34→21:01)
--- NOTE | 2018-08-31 10:47 | CP.PCM.PN ---
Subjective - Date & Time of Evaluation Date of Evaluation: 08/31/18 Time of Evaluation: 10:45 - Subjective Subjective: Neuro Follow up Note: Mr. Murphy was evaluated this morning at bedside in acute rehab. He admits that his hand tremors have continued to improve since being started on Sinemet and since I last saw him last week. He offers no complaints today. He is for possible d/c to [facility] at [place] tomorrow. Presently denies h/a, dizziness, visual changes, chest pain, sob, abd pain, n/v/d, paresthesias. Objective - Vital Signs/Intake and Output Vital Signs (last 24 hours): Temp Pulse Resp BP Pulse Ox 98.1 F 85 18 140/86 96 08/31/18 07:24 08/31/18 08:41 08/31/18 07:24 08/31/18 08:39 08/31/18 08:41 - Medications Medications: Current Medications Acetaminophen (Tylenol 325mg Tab) 650 mg PO Q6 PRN PRN Reason: Headache Acetaminophen (Tylenol 325mg Tab) 650 mg PO Q4 PRN PRN Reason: Pain scale 1-10. Atorvastatin Calcium (Lipitor) 20 mg PO DAILY [facility] Last Admin: 08/31/18 08:39 Dose: 20 mg Carbidopa/Levodopa (Sinemet) 1 tab PO TID@0700,1200,1700 [facility] Last Admin: 08/31/18 06:51 Dose: 1 tab Cyanocobalamin (Vitamin B12 1000 Mcg Tab) 1,000 mcg PO DAILY [facility] Last Admin: 08/31/18 08:40 Dose: 1,000 mcg Insulin Human Regular (Humulin R) 0 units SC [facility]; Protocol Last Admin: 08/31/18 06:34 Dose: Not Given Polyethylene Glycol (Miralax) 17 gm PO HS [facility] Last Admin: 08/30/18 21:22 Dose: 17 gm Ramipril (Altace) 2.5 mg PO DAILY [facility] Last Admin: 08/31/18 08:39 Dose: 2.5 mg Sertraline HCl (Zoloft) 100 mg PO DAILY [facility] Last Admin: 08/31/18 08:40 Dose: 100 mg - Labs Labs: 08/16/18 05:30 08/16/18 05:30 PT 12.8 Seconds (9.8-13.1) 08/16/18 05:30 INR 1.1 08/16/18 05:30 - Constitutional Appears: Well, Non-toxic, No Acute Distress - Head Exam Head Exam: NORMOCEPHALIC Additional comments: Post-surgical incision site noted to left parietal area, open to air, healing well. - Eye Exam Eye Exam: EOMI, Normal appearance, PERRL Pupil Exam: NORMAL ACCOMODATION, PERRL - ENT Exam ENT Exam: Mucous Membranes Moist - Neck Exam Neck Exam: Full ROM, Normal Inspection - Respiratory Exam Respiratory Exam: NORMAL BREATHING PATTERN - Extremities Exam Extremities Exam: Full ROM. absent: Calf Tenderness, Pedal Edema - Neurological Exam Neurological Exam: Alert, Awake, CN II-XII Intact, Oriented x3, Reflexes Normal Neuro motor strength exam: Left Upper Extremity: 5, Right Upper Extremity: 5, Left Lower Extremity: 4, Right Lower Extremity: 4 Additional comments: Speech clear, fluid Generalized weakness to BLE improving + slight left hand tremor noted, improving No bradykinesia or cogwheeling noted. - Psychiatric Exam Psychiatric exam: Normal Affect, Normal Mood - Skin Skin Exam: Normal Color Additional comments: Post-surgical incision site noted to left parietal area, open to air, healing well. Assessment and Plan (1) Essential tremor Assessment & Plan: -Continue Sinemet as ordered at 7am, 12pm, and 5pm---to be continued while at [facility]. -Continue therapy as tolerated. -Recommend Paul scan as outpatient to r/o Parkinsons. Pt may f/u with Dr. Alcantara in the office within 1 month. -Notify neuro team of any acute changes to pt's condition prior to pt's d/c. Thank you for allowing us to participate in this pt's care. Carol Zabala, [place], DIAGNOSTIC TECHNOLOGIST Case discussed with Dr. Alcantara Status: Acute
--- NOTE | 2018-08-31 17:55 | CP.PCM.PN ---
Subjective - Date & Time of Evaluation Date of Evaluation: 08/31/18 Time of Evaluation: 17:54 - Subjective Subjective: Patient seen in the room in good spirits happy with improvement aware going to [facility] tomorrow denies pain scalp CDI Objective - Vital Signs/Intake and Output Vital Signs (last 24 hours): Temp Pulse Resp BP Pulse Ox 98.1 F 85 18 140/86 96 08/31/18 07:24 08/31/18 08:41 08/31/18 07:24 08/31/18 08:39 08/31/18 08:41 - Medications Medications: Current Medications Acetaminophen (Tylenol 325mg Tab) 650 mg PO Q6 PRN PRN Reason: Headache Acetaminophen (Tylenol 325mg Tab) 650 mg PO Q4 PRN PRN Reason: Pain scale 1-10. Atorvastatin Calcium (Lipitor) 20 mg PO DAILY [facility] Last Admin: 08/31/18 08:39 Dose: 20 mg Carbidopa/Levodopa (Sinemet) 1 tab PO TID@0700,1200,1700 [facility] Last Admin: 08/31/18 17:32 Dose: 1 tab Cyanocobalamin (Vitamin B12 1000 Mcg Tab) 1,000 mcg PO DAILY [facility] Last Admin: 08/31/18 08:40 Dose: 1,000 mcg Insulin Human Regular (Humulin R) 0 units SC [facility]; Protocol Last Admin: 08/31/18 17:31 Dose: Not Given Polyethylene Glycol (Miralax) 17 gm PO HS [facility] Last Admin: 08/30/18 21:22 Dose: 17 gm Ramipril (Altace) 2.5 mg PO DAILY [facility] Last Admin: 08/31/18 08:39 Dose: 2.5 mg Sertraline HCl (Zoloft) 100 mg PO DAILY [facility] Last Admin: 08/31/18 08:40 Dose: 100 mg - Labs Labs: 08/16/18 05:30 08/16/18 05:30 PT 12.8 Seconds (9.8-13.1) 08/16/18 05:30 INR 1.1 08/16/18 05:30
--- NOTE | 2018-08-31 18:43 | CP.PCM.PN ---
Subjective - Date & Time of Evaluation Date of Evaluation: 08/31/18 Time of Evaluation: 10:00 - Subjective Subjective: patient seen and examined at bedside Interim events noted No complaints offered at this time denies cp/sob/fever/chills. available diagnostic data reviewed Review of Systems All systems: reviewed and no additional remarkable complaints except mentioned above Objective Vital Signs Stable - Constitutional Appears: Non-toxic, No Acute Distress Head Exam: NORMAL INSPECTION, incision c/d/i Eye Exam: Normal appearance Respiratory Exam: NORMAL BREATHING PATTERN Cardiovascular Exam: +S1, +S2 GI & Abdominal Exam: Soft Neurological Exam: Alert, Awake Psychiatric exam: Normal Affect, Normal Mood Skin Exam: Normal Color, Warm Assessment and Plan monitor vitals monitor labs Cont meds Cont therapy consultants appreciated input rest of plan as ordered Objective - Vital Signs/Intake and Output Vital Signs (last 24 hours): Temp Pulse Resp BP Pulse Ox 98.1 F 85 18 140/86 96 08/31/18 07:24 08/31/18 08:41 08/31/18 07:24 08/31/18 08:39 08/31/18 08:41 - Medications Medications: Current Medications Acetaminophen (Tylenol 325mg Tab) 650 mg PO Q6 PRN PRN Reason: Headache Acetaminophen (Tylenol 325mg Tab) 650 mg PO Q4 PRN PRN Reason: Pain scale 1-10. Atorvastatin Calcium (Lipitor) 20 mg PO DAILY [facility] Last Admin: 08/31/18 08:39 Dose: 20 mg Carbidopa/Levodopa (Sinemet) 1 tab PO TID@0700,1200,1700 [facility] Last Admin: 08/31/18 17:32 Dose: 1 tab Cyanocobalamin (Vitamin B12 1000 Mcg Tab) 1,000 mcg PO DAILY [facility] Last Admin: 08/31/18 08:40 Dose: 1,000 mcg Insulin Human Regular (Humulin R) 0 units SC [facility]; Protocol Last Admin: 08/31/18 17:31 Dose: Not Given Polyethylene Glycol (Miralax) 17 gm PO [facility] Last Admin: 08/30/18 21:22 Dose: 17 gm Ramipril (Altace) 2.5 mg PO DAILY [facility] Last Admin: 08/31/18 08:39 Dose: 2.5 mg Sertraline HCl (Zoloft) 100 mg PO DAILY [facility] Last Admin: 08/31/18 08:40 Dose: 100 mg - Labs Labs: 08/16/18 05:30 08/16/18 05:30 PT 12.8 Seconds (9.8-13.1) 08/16/18 05:30 INR 1.1 08/16/18 05:30 Assessment and Plan (1) Subdural hematoma Status: Acute (2) Fall Status: Acute
[2018-08-31 20:22] VITALS: RESP 20
[2018-08-31] MEDS: POLYETHYLENE GLYCOL 3350 17 GM/Dose PACKET PO SCH (21:26)
[2018-09-01] MEDS: Insulin Regular 100 units/ml SC SCH ×2 (06:30→12:16)
[2018-09-01 09:07] VITALS: PULSE 78; O2SAT 97
[2018-09-01 09:09] VITALS: BP 129/77; TEMP 97.3
== END 2018-09-01 13:22 | DRG 949 ==
PROVIDERS: ADMIT Family Medicine; ATTEND Family Medicine
PROC: F08Z2FZ Grooming/Personal Hygiene Treatment using Assistive, Adaptive, Supportive or Protective Equipment (ICD-10-PCS; principal; 2018-08-14)
PROC: F08Z1FZ Dressing Techniques Treatment using Assistive, Adaptive, Supportive or Protective Equipment (ICD-10-PCS; 2018-08-14)
PROC: F07Z4FZ Wheelchair Mobility Treatment using Assistive, Adaptive, Supportive or Protective Equipment (ICD-10-PCS; 2018-08-14)
PROC: F07Z9FZ Gait Training/Functional Ambulation Treatment using Assistive, Adaptive, Supportive or Protective Equipment (ICD-10-PCS; 2018-08-14)
PROC: F07Z8FZ Transfer Training Treatment using Assistive, Adaptive, Supportive or Protective Equipment (ICD-10-PCS; 2018-08-14)
PROC: F07Z5FZ Bed Mobility Treatment using Assistive, Adaptive, Supportive or Protective Equipment (ICD-10-PCS; 2018-08-14)
PROC: F06Z6ZZ Communicative/Cognitive Integration Skills Treatment (ICD-10-PCS; 2018-08-14)
PROC: F07L6GZ Therapeutic Exercise Treatment of Musculoskeletal System - Lower Back / Lower Extremity using Aerobic Endurance and Conditioning Equipment (ICD-10-PCS; 2018-08-14)
DX: Z48.812 Encounter for surgical aftercare following surgery on the circulatory system (principal); G81.94 Hemiplegia, unspecified affecting left nondominant side; E78.00 Pure hypercholesterolemia, unspecified; Z86.73 Personal history of transient ischemic attack (TIA), and cerebral infarction without residual deficits; E11.9 Type 2 diabetes mellitus without complications; I10 Essential (primary) hypertension; G20 Parkinson's disease

== ENCOUNTER 2018-10-02 14:55 | Emergency (ER) | payer MEDICARE ==
[2018-10-02 14:56] VITALS: BMI 21.7
--- NOTE | 2018-10-02 15:48 | ED PDOC ---
HPI: Trauma/Fall - HPI Time Seen by Provider: 10/02/18 15:15 Chief Complaint (Nursing): Trauma Chief Complaint (Provider): Trauma History Per: Patient Onset/Duration Of Symptoms: Hrs (1) Additional Complaint(s): 72 y/o male presents to the ED complaining of head injury that happen 1 hour ago. Patient was sent from [facility]. Patient was sitting on the wheel chair and fell backwards and hit his head. He states he had a headache after the accident. Patient denies any LOC, chest pain, syncope, dizziness, or vomiting. PMD: none provided Past Medical History Reviewed: Historical Data, Nursing Documentation, Vital Signs Vital Signs: Last Vital Signs Temp 98.4 F 10/02/18 15:05 Pulse 94 H 10/02/18 15:05 Resp 18 10/02/18 15:05 BP 152/94 H 10/02/18 15:05 Pulse Ox 97 10/02/18 15:05 - Medical History PMH: Arthritis, Cardia Arrhythmia, Depression, Diabetes, HTN, Hypercholesterolemia - Surgical History Other surgeries: Brain surgery. - Family History Family History: States: No Known Family Hx - Home Medications Home Medications: Ambulatory Orders Medication Instructions Recorded Atorvastatin [Lipitor] 20 mg PO DAILY 08/07/18 Ramipril [Altace] 2.5 mg PO DAILY 08/07/18 Acetaminophen [Tylenol] 650 mg PO Q4 PRN 08/14/18 Acetaminophen [Tylenol] 650 mg PO Q6 PRN 08/14/18 Insulin Human Regular-MED [HumuLIN See Protocol [facility] 08/14/18 R MED] Polyethylene Glycol 3350 [Miralax] 17 gm PO HS 08/14/18 Propranolol [Inderal] 10 mg PO TID 08/14/18 Acetaminophen [Tylenol 325mg tab] 650 mg PO Q4 PRN tab 09/01/18 Acetaminophen [Tylenol 325mg tab] 650 mg PO Q6 PRN tab 09/01/18 Atorvastatin [Lipitor] 20 mg PO DAILY tab 09/01/18 Carbidopa/Levodopa 25/100 mg 1 tab PO TID@0700,1200,1700 tab 09/01/18 [Sinemet] Cyanocobalamin [Vitamin B12 1000 1,000 mcg PO DAILY tab 09/01/18 mcg Tab] Insulin Human Regular [HumuLIN R] 0 units SC [facility] ml 09/01/18 Polyethylene Glycol 3350 [Miralax] 17 gm PO HS packet 09/01/18 Ramipril [Altace] 2.5 mg PO DAILY cap 09/01/18 Sertraline [Zoloft] 100 mg PO DAILY tab 09/01/18 - Allergies Allergies/Adverse Reactions: Allergies Allergy/AdvReac Type Severity Reaction Status Date / Time No Known Allergies Allergy Verified 10/02/18 15:05 Review of Systems ROS Statement: Except As Marked, All Systems Reviewed And Found Negative Cardiovascular: Negative for: Chest Pain Gastrointestinal: Negative for: Vomiting Neurological: Positive for: Headache, Other (No LOC.). Negative for: Dizziness Physical Exam - Reviewed Nursing Documentation Reviewed: Yes Vital Signs Reviewed: Yes - Physical Exam Appears: Positive for: Well, Non-toxic, No Acute Distress Head Exam: Positive for: ATRAUMATIC, NORMOCEPHALIC Skin: Positive for: Normal Color, Warm, Dry Eye Exam: Positive for: EOMI, Normal appearance, PERRL ENT: Positive for: Normal ENT Inspection Neck: Positive for: Normal, Painless ROM, Supple Cardiovascular/Chest: Positive for: Regular Rate, Rhythm. Negative for: Murmur Respiratory: Positive for: Normal Breath Sounds. Negative for: Respiratory Distress Gastrointestinal/Abdominal: Positive for: Normal Exam, Soft. Negative for: Tenderness Back: Positive for: Normal Inspection. Negative for: L CVA Tenderness, R CVA Tenderness Extremity: Positive for: Normal ROM. Negative for: Pedal Edema Neurological/Psych: Positive for: Awake, Alert, Normal Tone, Oriented (x3), Other (Difficult to ambulate and is getting physical therapy.). Negative for: Motor/Sensory Deficits - ECG O2 Sat by Pulse Oximetry: 97 Medical Decision Making Medical Decision Making: Time:1542 Initial Impression: Head injury rule out intracranial bleeding. Will get CT head. Initial Plan: -CT head 16:42 PROCEDURE: CT HEAD WITHOUT CONTRAST. HISTORY: head injury headache COMPARISON: 08/12/2018 TECHNIQUE: Axial computed tomography images were obtained through the head/brain without intravenous contrast. Radiation dose: Total exam DLP = 1136.31 mGy-cm. This CT exam was performed using one or more of the following dose reduction techniques: Automated exposure control, adjustment of the mA and/or kV according to patient size, and/or use of iterative reconstruction technique. FINDINGS: HEMORRHAGE: Intermediate attenuation right frontal subdural convexity hemorrhage up to 7 mm in width. Likely subacute. There are some small areas of associated high attenuation within this collection which may represent small amount of acute hemorrhage.. There is some linear high attenuation likely related to prior surgery. The patient is status post right frontal craniotomy. No other extra- axial hemorrhage identified. No parenchymal hemorrhage. No intraventricular hemorrhage. BRAIN: No mass effect or edema. Mild periventricular white matter ischemic change, consistent with age. Mild diffuse atrophy. VENTRICLES: Unremarkable. No hydrocephalus. CALVARIUM: Right frontal craniotomy. PARANASAL SINUSES: Unremarkable as visualized. No significant inflammatory changes. MASTOID AIR CELLS: Unremarkable as visualized. No inflammatory changes. OTHER FINDINGS: None. IMPRESSION: Probable subacute right frontal convexity subdural hemorrhage up to 7 mm in width. Questionable very small amounts of acute blood within this subacute collection. Status post right frontal craniotomy. [address] Morgan who reviewed CT head and recommends no observation or intervention and states that patient is stable for discharge from [facility]. Scribe Attestation: Documented by Juliana Aguirre, acting as a scribe for Dimple Mclean Provider Scribe Attestation: All medical record entries made by the Scribe were at my direction and personally dictated by me. I have reviewed the chart and agree that the record accurately reflects my personal performance of the history, physical exam, medical decision making, and the department course for this patient. I have also personally directed, reviewed, and agree with the discharge instructions and disposition. Disposition - Clinical Impression Clinical Impression: Head injury - Patient ED Disposition Is Patient to be Admitted: No Discussed With : Izaiah Mccullough Doctor Will See Patient In The: Office Counseled Patient/Family Regarding: Studies Performed, Diagnosis, Need For Followup - Disposition Referrals: Wander Rivas MD [Staff Provider] - Disposition: Routine/Home Disposition Time: 18:07 Condition: GOOD Additional Instructions: MEGAN ERIC, thank you for letting us take care of you today. Your provider was Dimple Mclean MD and you were treated for FALL;HEAD PAIN. The emergency medical care you received today was directed at your acute symptoms. If you were prescribed any medication, please fill it and take as directed. It may take several days for your symptoms to resolve. Return to the Emergency Department if your symptoms worsen, do not improve, or if you have any other problems. Please contact your doctor or call one of the physicians/clinics you have been referred to that are listed on the Patient Visit Information form that is included in your discharge packet. Bring any paperwork you were given at discharge with you along with any medications you are taking to your follow up visit. Our treatment cannot replace ongoing medical care by a primary care provider outside of the emergency department. Thank you for allowing the [facility] team to be part of your care today. If you had an X-Ray or CT scan: A Radiologist will review the ED reading if any change in treatment is needed we will contact you. Instructions: Closed Head Injury (DC) Print Language: ITALIAN
--- NOTE | 2018-10-02 16:45 | CT ---
Date of service: 10/02/2018 PROCEDURE: CT HEAD WITHOUT CONTRAST. HISTORY: head injury headache COMPARISON: 08/12/2018 TECHNIQUE: Axial computed tomography images were obtained through the head/brain without intravenous contrast. Radiation dose: Total exam DLP = 1136.31 mGy-cm. This CT exam was performed using one or more of the following dose reduction techniques: Automated exposure control, adjustment of the mA and/or kV according to patient size, and/or use of iterative reconstruction technique. FINDINGS: HEMORRHAGE: Intermediate attenuation right frontal subdural convexity hemorrhage up to 7 mm in width. Likely subacute. There are some small areas of associated high attenuation within this collection which may represent small amount of acute hemorrhage.. There is some linear high attenuation likely related to prior surgery. The patient is status post right frontal craniotomy. No other extra-axial hemorrhage identified. No parenchymal hemorrhage. No intraventricular hemorrhage. BRAIN: No mass effect or edema. Mild periventricular white matter ischemic change, consistent with age. Mild diffuse atrophy. VENTRICLES: Unremarkable. No hydrocephalus. CALVARIUM: Right frontal craniotomy. PARANASAL SINUSES: Unremarkable as visualized. No significant inflammatory changes. MASTOID AIR CELLS: Unremarkable as visualized. No inflammatory changes. OTHER FINDINGS: None. IMPRESSION: Probable subacute right frontal convexity subdural hemorrhage up to 7 mm in width. Questionable very small amounts of acute blood within this subacute collection. Status post right frontal craniotomy.
[2018-10-02 21:19] VITALS: BP 145/85; PULSE 83; RESP 18; TEMP 98.4; O2SAT 97
== END 2018-10-02 20:06 ==
LOC: H.ER 14:55
DX: S09.90XA Unspecified injury of head, initial encounter (principal); E11.9 Type 2 diabetes mellitus without complications; I10 Essential (primary) hypertension; Z86.59 Personal history of other mental and behavioral disorders